=== PATIENT | female | born 1990 | race Caucasian/White ===

== ENCOUNTER → 2021-09-07 | Outpatient (CLI) | payer BC, SELFPAY ==
[2021-09-07 11:25] LABS: Amphetamine Urine VISTA NEGATIVE (<1000 ng/mL); Barbiturate Urine VISTA NEGATIVE (< 200 ng/mL); Benzodiazepine Urine VISTA NEGATIVE (< 200 ng/mL); Cocaine Urine VISTA NEGATIVE (< 300 ng/mL); Ecstacy Urine VISTA NEGATIVE (< 500 ng/mL); Methadone Urine VISTA NEGATIVE (< 300 ng/mL); PCP Urine VISTA NEGATIVE (< 25 ng/mL); THC Urine VISTA NEGATIVE (< 50 ng/mL); Vista UDS pH Range 5
[2021-09-09 00:07] LABS: Chlamydia By Nucleic Acid AMP Negative (Negative)
[2021-09-09 07:48] LABS: Gonococcus By Nucleic Acid AMP Negative (Negative)
[2021-09-14 10:28] LABS: HPV APTIMA, High Risk Negative (Negative)
[2021-09-14 10:29] LABS: HPV Reflexed? YES, CHARGE PATIENT
== END | disposition home or self-care (01) ==
LOC: LABSPEC 09-08 08:13
PROVIDERS: Visit Provider Obstetrics & Gynecology
DX: Z34.90 Encounter for supervision of normal pregnancy, unspecified, unspecified trimester (principal)
CPT/HCPCS: 80307; 87086; 87088; 87491; 87591; 87624; 88175; G0145

== ENCOUNTER → 2021-09-15 | Outpatient (CLI) | payer BC, SELFPAY ==
[2021-09-15 16:59] LABS: Absolute Lymphocyte Count 2.78 X10^3/uL (0.83-4.51); Basophil# 0.07 X10^3/uL; Basophil% 0.6 % (0-1); Eosinophil# 0.47 X10^3/uL; Eosinophils% 3.9 % (0-5); Hematocrit 38.3 % (37-47); Hemoglobin 13.3 g/dL (12.0-15.0); Lymphocyte # 2.78 X10^3/ul (0.83-4.51); Lymphocyte % 22.8 % (19-41); Mean Corp Hgb Conc 34.7 g/dL (32-36); Mean Corpuscular Hgb 31.4 pg (27.0-32.0); Mean Corpuscular Volume 90.3 fL (81-99); Mean Platelet Vol. 9.8 fl (6.2-12.0); Monocyte# 0.84 X10^3/uL; Monocyte% 6.9 % (0-10); NRBC Flagged by Analyzer 0 % (0-5); Neutrophil # 7.95 X10^3/uL (2.7-7.7); Neutrophil % 65.3 % (47-70); Platelet Count 243 K/mm3 (150-450); RBC Distribution Width CV 12.1 % (11.6-14.6); RBC Distribution Width SD 39.6 fl (35.1-43.9); Red Blood Count 4.24 M/mm3 (4.2-5.4); White Blood Count 12.2 K/mm3 (4.4-11.0)
[2021-09-15 17:36] LABS: NATERA MAILED SPECIMEN
[2021-09-16 08:39] LABS: HIV - WCH Non-Reactive (Nonreactive); Hepatitis B Surface Antigen Non-Reactive (Nonreactive); Hepatitis C Antibody Non-Reactive (Nonreactive); Rubella IgG Reactive (Nonreactive); Syphilis Antibodies Non-reactive
== END | disposition home or self-care (01) ==
LOC: LAB 16:29
PROVIDERS: Visit Provider Obstetrics & Gynecology
DX: Z34.90 Encounter for supervision of normal pregnancy, unspecified, unspecified trimester (principal)
CPT/HCPCS: 36415; 85025; 86703; 86762; 86780; 86803; 86850; 86900; 86901; 87340

== ENCOUNTER 2021-09-17 11:58 | Emergency (ER) | payer BC, SELFPAY ==
[2021-09-17 11:59] VITALS: BP 125/91; PULSE 105; RESP 18; TEMP 36.6; O2SAT 100; BMI 24.3
--- NOTE | 2021-09-17 12:21 | EDS_ITS ---
HPI HPI - Female History of Present Illness Chief Complaint: Vag Bld, Preg Informant: patient Pain Pain: Positive for Pelvic Pain Onset: Today Context: Sudden Onset Timing: Intermittent and Lasts (Approximately 30 minutes) Quality: Positive for Cramping Location: RLQ, LLQ and Suprapubic Worsened by: - (Nothing) Relieved by: - (Nothing) Bleeding Issue: Positive for Vaginal bleeding and Passing clots Onset: Today Context: Sudden Onset Current Severity: Mild Associated Symptoms Associated Symptoms: Positive for Hematuria; Negative for Dysuria or Frequency Test: Positive P: 0 Narrative Narrative: Patient presents with vaginal bleeding and pelvic pain that began today. Patient states she is approximately 11 weeks . Patient is 1 para 0. Patient states she was passing small clots and blood. Patient denies passing any tissue. Patient admits to some pelvic cramping. Patient states this lasted approximately 30 minutes and then resolved. Patient states it was over the lower abdomen. Patient states nothing makes it better nothing makes it worse. Patient denies any dysuria but admits to some slight hematuria. Patient denies any urinary frequency. Patient denies any vaginal discharge. [facility] Medical History (Updated 09/17/21 @ 14:[address] Jesus Dobbs DO) Anxiety Home Medications fluticasone propionate 50 mcg/actuation nasal spray,suspension 1 spray intranasal DAILY 08/31/21 [History Last Taken Unknown] loratadine 5 mg disintegrating tablet (Claritin RediTabs) 5 mg PO ONCE 08/31/21 [History Last Taken Unknown] venlafaxine 150 mg capsule,extended release 24 hr 150 mg PO DAILY 08/31/21 [ History Last Taken Unknown] vitamin #56-iron 35 mg and 5 mg-folic acid 1 mg-dha capsule 1 cap PO DAILY 09/07/21 [History Last Taken Unknown] cephalexin 500 mg capsule 500 mg PO Q6 #12 CAPSULES 09/17/21 [Rx Last Taken Unknown] Allergy/AdvReac Type Severity Reaction Status Date / Time No Known Allergies Allergy Unverified 08/31/21 15:08 Surgical History (Updated 09/17/21 @ 12:[address] 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 current occupational exposures/hazards: Yes (formaldehyde) pets and animals: Yes (not managing litter box) pets and animals: cat(s) leisure activities: exercise history of recent travel: No sexually active: Yes Smoking Status: Never smoker how long ago did patient quit smokin years second hand exposure: No alcohol intake: former details: socially rare substance use type: does not use well-balanced diet: daily or most days caffeine: No eating out: rarely or never during the past year weight has: remained stable what type of physical activity do you participate in: other details: crossfit frequency: 3-4 times per week duration: 45-60 minutes/day joey/yarsanism: None seatbelt use: always do you feel safe at home: Yes additional social history: BF Eric ROS ROS ED Constitutional Constitutional ED: Denies chills or fever(s) Eyes Eyes: Denies blurry vision or change in vision ENT ENT ED: Denies rhinorrhea or sore throat Cardiovascular Cardiovascular: Denies chest pain or palpitations Respiratory/Chest Respiratory/Chest: Denies cough or dyspnea Gastrointestinal Gastrointestinal: Reports abdominal pain; Denies nausea or vomiting Genitourinary Genitourinary ED: Reports hematuria; Denies dysuria Musculoskeletal Musculoskeletal: Denies back pain or neck pain Integumentary Denies abscess or rash Neurologic Neurologic: Denies headache(s) or weakness Allergic/Immunologic Allergic/Immunologic ED: Denies mouth swelling or urticaria EXAM Physical Exam Const Vital Signs: 09/17/21 11:59 Temperature 97.9 F Temperature Source Temporal Pulse Rate 105 H Respiratory Rate 18 Blood Pressure 125/91 H Blood Pressure Mean 102 Pulse Ox 100 Oxygen Delivery Method Room Air Positive well nourished and well developed General Appearance ED: well developed and NAD HEENT Reports moist mucous membranes Neck supple and no JVD Resp normal respiratory effort and clear to auscultation bilaterally Cardio regular rate and regular rhythm GI normal to inspection, nondistended, normoactive bowel sounds and soft to palpation Palpation: tender LLQ, RLQ and suprapubic; Negative for guarding Neuro oriented x3, CN's II-XII intact bilaterally and no sensory deficits noted Sensorium / Orientation: alert Motor Exam: strength 5/5 throughout Psych mental status grossly normal MDM MDM MDM Narrative Medical decision making narrative: Patient was given IV fluids. CBC was within normal limits. Quantitative hCG was [address]. Urinalysis shows a leukocyte esterases of 500 with 10-25 white blood cells and 10-25 epithelial cells and 1+ bacteria. Urine culture was ordered. Pelvic ultrasound was obtained. There is a single live intrauterine measuring 10 weeks 2 days. There is no fluid in the cul-de-sac. heart rate is 166. Patient was advised of her findings. Patient is feeling better on reevaluation. Case was discussed with Dr. Estrada. She did recommend covering the patient with Keflex for possible urinary tract infection until urine culture results return. Patient was given her first dose of Keflex here. Patient was instructed to follow-up with Dr. Estrada as scheduled. Patient and spouse understood and were agreeable with the plan. All questions were answered. Lab Data Attestation: I reviewed the patient's lab results. Labs: Laboratory Results - last 24 hr 09/17/21 09/17/21 09/17/21 12:35 12:35 12:35 WBC 9.6 RBC 4.21 Hgb 13.4 Hct 39.0 MCV 92.6 MCH 31.8 MCHC 34.4 RDW Std Deviation 41.4 RDW Coeff of Dora 12.1 Plt Count 221 MPV 9.8 Immature Gran % (Auto) 0.400 Neut % (Auto) 66.0 Lymph % (Auto) 23.4 [place] % (Auto) 7.2 Eos % (Auto) 2.6 Baso % (Auto) 0.4 Absolute Neuts (auto) 6.3 Absolute Lymphs (auto) 2.24 Nucleated RBC % 0 HCG, Quant 55128 H Urine Color Yellow Urine Clarity Cloudy Urine pH 5.0 Ur Specific [place] 1.030 Urine Protein Negative Urine Glucose (UA) NEGATIVE Urine Ketones Negative Urine Occult Blood 150 H Urine Nitrite Negative Urine Bilirubin Negative Urine Urobilinogen Normal Ur Leukocyte Esterase 500 H Urine RBC 5-10 SEEN Urine WBC 10-25 SEEN Ur Squamous Epith Cells 10-25 SEEN Urine Bacteria 1+ Urine Mucus 0 SEEN Radiography Diagnostic Testing: Clinical Impression(s) from Imaging Studies Obstetrics Ultrasound 09/17/21 12:26 IMPRESSION: Single live intrauterine , as above. Electronically Signed: Shalom Pimentel MD ([place]) at 14:16 EDT , Discharge Plan Triage Chief Complaint: Vag Bld, Preg ED Provider: Jesus Dobbs Dx/Rx/DC Orders Clinical Impression: Threatened miscarriage, Urinary tract infection Instructions: ED Possible Miscarriage ..., ED CYSTITIS Female Adult Prescriptions: New cephalexin [cephalexin] 500 mg capsule 500 mg PO Q6 Qty: 12 0RF No Action Claritin RediTabs 5 mg tablet,disintegrating 5 mg PO ONCE fluticasone propionate 50 mcg/actuation spray,suspension 1 spray intranasal DAILY Rx Instructions: administer into each nostril venlafaxine 150 mg capsule,extended release 24hr 150 mg PO DAILY PNV #[id number]-[id number] acid-dha 35 mg iron-5 mg iron-1 mg capsule 1 cap PO DAILY Primary Care Provider: Care Physician,No Primary Referrals: Yolis Gibson DO [Med Staff - Active Staff] - Keep [facility] appointment Care Physician,No Primary [Primary Care Provider] - Disposition Disposition: Home, Self Care
--- NOTE | 2021-09-17 12:26 | US_ITS ---
STUDY: FIRST TRIMESTER OBSTETRICAL ULTRASOUND REASON FOR EXAM: Female, 30 years old Pelvic pain, vaginal bleeding LMP: 07/01/2021 TECHNIQUE: Transabdominal and Transvaginal TECHNICAL QUALITY: Adequate. PRIOR ULTRASOUND: None. FINDINGS: There is visualization of a single gestational sac in a normal intrauterine position. The mean sac diameter (MSD) measures 4.5 cm, indicating an estimated gestational age (EGA) of 10 weeks, 0 days. The gestational sac shape is within normal limits. There is a visualized yolk sac. The yolk sac measures 4.7 mm. The placenta is non-visualized. There is visualization of a live embryo. The crown-rump length (CRL) measures 3.76 cm, indicating an estimated gestational age (EGA) of 10 weeks, 2 days. There is demonstrated cardiac activity with a heart rate of 166 bpm. The estimated gestation age (EGA) by LMP is 11 weeks, 1 days. The estimated date of delivery (MARY) by LMP is 04/07/2022. The estimated gestation age (EGA) by US is 10 weeks, 1 days. The estimated date of delivery (MARY) by US is 04/14/2022. The uterus measures 9.6 x 8.8 x 6.6 cm. There is no demonstrated uterine fibroid. The cervix is closed. The right ovary measures 3.8 x 1.5 x 2.0 cm. There is no right ovarian cyst. There is no visualized right adnexal mass or complex lesion. The left ovary measures 3.5 x 5.4 x 3.2 cm. 3.3 cm left corpus luteum cyst. There is no visualized left adnexal mass or complex lesion. There is no fluid in the cul de sac. US/Transvaginal w/Preg US IMPRESSION: Single live intrauterine , as above. Electronically Signed: Shalom Pimentel MD ([place]) at 14:16 EDT Reading Location ID and State: [facility] / [place] , Service support ,
[2021-09-17] MEDS: 0.9% Normal Saline 1,000 ML 1000 ML IV (12:34)
[2021-09-17 12:42] LABS: Mucous, Urine 0 SEEN /hpf (<or=2+)
[2021-09-17 12:48] LABS: Absolute Lymphocyte Count 2.24 X10^3/uL (0.83-4.51); Absolute Neutrophil Count 6.3 X10^3/uL (2.0-7.7); Basophil# 0.04 X10^3/uL; Basophil% 0.4 % (0-1); Eosinophil# 0.25 X10^3/uL; Eosinophils% 2.6 % (0-5); Hemoglobin 13.4 g/dL (12.0-15.0); Lymphocyte # 2.24 X10^3/ul (0.83-4.51); Lymphocyte % 23.4 % (19-41); Mean Corp Hgb Conc 34.4 g/dL (32-36); Mean Corpuscular Hgb 31.8 pg (27.0-32.0); Mean Corpuscular Volume 92.6 fL (81-99); Mean Platelet Vol. 9.8 fl (6.2-12.0); Monocyte# 0.69 X10^3/uL; Monocyte% 7.2 % (0-10); NRBC Flagged by Analyzer 0 % (0-5); Neutrophil # 6.31 X10^3/uL (2.7-7.7); Platelet Count 221 K/mm3 (150-450); RBC Distribution Width CV 12.1 % (11.6-14.6); RBC Distribution Width SD 41.4 fl (35.1-43.9); Red Blood Count 4.21 M/mm3 (4.2-5.4); White Blood Count 9.6 K/mm3 (4.4-11.0)
[2021-09-17 13:20] LABS: Color, Urine Yellow (Yellow); Urine Clarity Cloudy (Clear)
[2021-09-17 13:21] LABS: Bacteria 1+ /hpf (None Seen); Glucose, Dipstick NEGATIVE (Normal); Ketone-Dipstick Negative (Negative); Leukocyte Esterase-Dipstick 500 /ul (Negative); Nitrite-Dipstick Negative (Negative); Occult Blood-Urine 150 /ul (Negative); Protein-Dipstick Negative (Negative); Red Blood Cells-Urine 5-10 SEEN /hpf (0-5); Squamous Epithelial Cells - UA 10-25 SEEN /hpf (5-10); Urine Bilirubin Dipstick Negative (Negative); Urine Urobilinogen Normal (Normal); White Blood Cells 10-25 SEEN /hpf (0-5)
[2021-09-17] MEDS: Cephalexin 500 MG Capsule PO (14:54)
== END 2021-09-17 15:00 | disposition home or self-care (01) ==
PROVIDERS: Emergency Provider Emergency Medicine; Visit Provider Emergency Medicine
DX: O20.0 Threatened abortion (principal); O23.41 Unspecified infection of urinary tract in pregnancy, first trimester; O99.341 Other mental disorders complicating pregnancy, first trimester; F41.9 Anxiety disorder, unspecified; Z3A.10 10 weeks gestation of pregnancy; Z79.899 Other long term (current) drug therapy
CPT/HCPCS: 76817; 81001; 84702; 85025; 87077; 87086; 87088; 87186; 96360; 99284; J7030; A4216

== ENCOUNTER → 2021-12-29 | Outpatient (CLI) | payer BC, SELFPAY ==
[2021-12-29 09:30] LABS: Absolute Lymphocyte Count 2.28 X10^3/uL (0.83-4.51); Absolute Neutrophil Count 7.5 X10^3/uL (2.0-7.7); Basophil# 0.05 X10^3/uL; Basophil% 0.5 % (0-1); Eosinophil# 0.33 X10^3/uL; Hemoglobin 12.4 g/dL (12.0-15.0); Lymphocyte # 2.28 X10^3/ul (0.83-4.51); Lymphocyte % 20.6 % (19-41); Mean Corp Hgb Conc 34.4 g/dL (32-36); Mean Corpuscular Hgb 31.9 pg (27.0-32.0); Mean Corpuscular Volume 92.5 fL (81-99); Mean Platelet Vol. 10.7 fl (6.2-12.0); Monocyte# 0.86 X10^3/uL; Monocyte% 7.8 % (0-10); NRBC Flagged by Analyzer 0 % (0-5); Neutrophil # 7.51 X10^3/uL (2.7-7.7); Neutrophil % 67.6 % (47-70); Platelet Count 248 K/mm3 (150-450); RBC Distribution Width CV 12.2 % (11.6-14.6); RBC Distribution Width SD 41.4 fl (35.1-43.9); Red Blood Count 3.89 M/mm3 (4.2-5.4); White Blood Count 11.1 K/mm3 (4.4-11.0)
[2021-12-29 10:09] LABS: Glucose Challenge Gest 1H 50g 61 mg/dL (70-140)
== END | disposition home or self-care (01) ==
LOC: LAB 09:09
PROVIDERS: Visit Provider Obstetrics & Gynecology
DX: O09.90 Supervision of high risk pregnancy, unspecified, unspecified trimester (principal); Z3A.00 Weeks of gestation of pregnancy not specified
CPT/HCPCS: 36415; 82950; 85025

== ENCOUNTER → 2022-03-09 | Outpatient (CLI) | payer BC, SELFPAY ==
--- NOTE | 2022-03-09 15:34 | US_ITS ---
EXAM: US , LIMITED CLINICAL INDICATION: growth TECHNIQUE: Real-time limited ultrasound of the maternal uterus with image documentation. This report was created using [employer] report generation technology. COMPARISON: None. FINDINGS: GESTATIONAL AGE: Gestational age 35 weeks 6 days. MARY: MARY 04/07/2022. EFW: Estimated weight 2662 g, 37th percentile. BPD: Biparietal diameter 9.2 cm age 37 weeks 1 day, 27th percentile. HC: Head circumference 34.2 cm age 39 weeks 3 days, 94th percentile. AC: Abdominal circumference 31.6 cm age 35 weeks 4 days, 51st percentile. FL: Femur length 6.5 cm age 33 weeks 4 days, 4th percentile. POSITION: There is an intrauterine gestation in cephalic position. HEART RATE: heart rate is 169 bpm. PLACENTA: The placenta is anterior. There is a small 5 mm calcification in the placenta. AMNIOTIC FLUID: KAREY is 12.9 cm. CERVIX: Cervix measures 3.6 cm in length. US/OB Limited With Biometrics IMPRESSION: Intrauterine gestation with an average ultrasound age of 36 weeks 2 days and ultrasound estimated due date of 04/04/2022. heart rate is 169 bpm. KAREY is 12.9 cm. Electronically Signed: Angelo Beckwith MD at 16:35 EST ,
== END | disposition home or self-care (01) ==
PROVIDERS: Referring Provider Obstetrics & Gynecology; Visit Provider Obstetrics & Gynecology
DX: O98.519 Other viral diseases complicating pregnancy, unspecified trimester (principal); U07.1 COVID-19; Z3A.36 36 weeks gestation of pregnancy
CPT/HCPCS: 76816

== ENCOUNTER 2022-03-16 18:55 | Inpatient (IN) | payer BC, SELFPAY ==
[2022-03-16] VITALS (14 sets, daily range): BP systolic 140–161; BP diastolic 86–95; PULSE 57–71; TEMP 36.6–36.7; O2SAT 99; BMI 30.2
[2022-03-16 12:34] LABS: Protein, Urine (Random) 237.5 mg/dL (<11.9); Protein:Creat Ratio 794 mg/g CRE (0-200)
[2022-03-16 18:07] LABS: Mucous, Urine 0 SEEN /hpf (<or=2+); Red Blood Cells-Urine 0 SEEN /hpf (0-5)
[2022-03-16 18:19] LABS: Hemoglobin 12.2 g/dL (12.0-15.0); Mean Corp Hgb Conc 34.9 g/dL (32-36); Mean Corpuscular Hgb 31.6 pg (27.0-32.0); Mean Corpuscular Volume 90.7 fL (81-99); Mean Platelet Vol. 13.1 fl (6.2-12.0); Platelet Count 205 K/mm3 (150-450); RBC Distribution Width CV 12.6 % (11.6-14.6); Red Blood Count 3.86 M/mm3 (4.2-5.4); White Blood Count 9.5 K/mm3 (4.4-11.0)
[2022-03-16 18:33] LABS: Color, Urine Yellow (Yellow); Glucose, Dipstick Normal (Normal); Ketone-Dipstick Negative (Negative); Urine Bilirubin Dipstick Negative (Negative); Urine Clarity Clear (Clear)
[2022-03-16 18:34] LABS: Bacteria 1+ /hpf (None Seen); Leukocyte Esterase-Dipstick 500 /ul (Negative); Nitrite-Dipstick Negative (Negative); Occult Blood-Urine 25 /ul (Negative); Protein-Dipstick 100 mg/dl (Negative); Squamous Epithelial Cells - UA 0-5 SEEN /hpf (5-10); Urine Urobilinogen Normal (Normal); White Blood Cells 10-25 SEEN /hpf (0-5)
[2022-03-16 18:38] LABS: AST(SGOT) 20 U/L (15-37); Alanine Aminotransfer ALT/SGPT 15 U/L (13-56); EST Glomerular Filtration Rate 78 mL/min (>60); Est Glom Filt Rate - Afr Amer 95 mL/min (>60); Estimated Creatinine Clearance 108.79 ml/min; Uric Acid 6.9 mg/dL (2.6-6.0)
[2022-03-16 18:44] LABS: Protein, Urine (Random) 242.5 mg/dL (<11.9); Protein:Creat Ratio 1575 mg/g CRE (0-200)
[2022-03-16] MEDS: Betamethasone/Betamethasone 30 MG/5 ML Vial 12 MG IM (20:28)
[2022-03-16] MEDS: Lactated Ringers 1,000 ML 50 ML IV (20:30)
[2022-03-16] MEDS: Oxytocin 15 Units/NS 250ml 15 UNITS/250 ML IV.SOLN 2 UNITS IV (21:49)
[2022-03-16] MEDS: Famotidine 20 MG Tablet PO (23:38)
[2022-03-17] VITALS (53 sets, daily range): BP systolic 100–172; BP diastolic 53–117; PULSE 56–144; RESP 16–17; TEMP 35.9–37; O2SAT 96–100
[2022-03-17] MEDS: LACTATED RINGERS 500 ML 999 ML IV ×2 (02:17→03:15)
--- NOTE | 2022-03-17 02:42 | HP.PCM.OB_ITS ---
HPI - General General Date of Admission: 03/16/22 HPI Narrative EVERETT WOODARD, is a 31 F who presents with elevated bps and proteinuria, irregular ctx. she was closed in the office and is now 3 cm so she is also having contractions. Maternal Data Information MARY Calculator Estimated Delivery Date Method Current WG Current Estimate 04/07/22 Ultrasound #1 37w 0d Other Estimates 04/13/22 LMP (Certain) 36w 1d PFSH PFS Medical History Anxiety Home Medications fluticasone propionate 50 mcg/actuation nasal spray,suspension 1 spray intranasal DAILY allergies 08/31/21 [History Last Taken 03/14/22 20:00 2 in each nostril] vitamin #56-iron 35 mg and 5 mg-folic acid 1 mg-dha capsule 1 cap PO DAILY 09/07/21 [History Last Taken 03/15/22 20:00 1 tab] sertraline 25 mg tablet (Zoloft) 25 mg PO DAILY anxiety 12/02/21 [History Last Taken 03/15/22 20:00 25 mg] loratadine 10 mg tablet (Claritin) 10 mg PO DAILY allergies 01/19/22 [History Last Taken 03/15/22 20:00 10 mg] famotidine 20 mg tablet (Pepcid) 20 mg PO DAILY acid reflux 03/16/22 [History Last Taken 03/16/22 16:00 20 mg] Allergy/AdvReac Type Severity Reaction Status Date / Time No Known Allergies Allergy Verified 03/16/22 11:22 Surgical History Hx of sinus surgery Social History adopted: No household members: significant other housing: house number of children: 0 current occupational status: employed 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 current occupational exposures/hazards: Yes (formaldehyde) pets and animals: Yes (not managing litter box) pets and animals: cat(s) leisure activities: exercise history of recent travel: No sexually active: Yes Smoking Status: Former smoker quit date: 10/22/13 how long ago did patient quit smokin years second hand exposure: No alcohol intake: former details: socially rare substance use type: does not use well-balanced diet: daily or most days caffeine: No eating out: rarely or never during the past year weight has: remained stable what type of physical activity do you participate in: other details: crossfit frequency: 3-4 times per week duration: 45-60 minutes/day joey/rastafari: None seatbelt use: always do you feel safe at home: Yes additional social history: BF Eric History 1 Elective abortions Hx Para 0 Spontaneous abortions Hx # Term Pregnancies Ectopic pregnancies Hx # Pregnancies Multiple births # of living children Visit Details Expected Delivery Route/Plan Labor Preferences- CB/BF classes: declined labor support person: [] labor intervention preferences: [] pain management options preferred: [] cut cord/dad catch: [] : [] PP control planned: [] discussed possible routes of delivery and associated risks: [] special requests: [] Plans Covid status: discussed Flu vaccine: discussed Tdap vaccine: given Rhogam: na LARC form signed: declined movement and labor precautions reviewed. Problem list reviewed and updated with the most current plan of care details and appropriate orders placed. Relevant counseling for the gestational age provided. Continue routine care and follow up unless otherwise noted in visit notes/problem list details OB Flowsheet Initial Weight: Not Recorded Date -?-?-?-?-?-?-?-?-?-?-?-?- EGA Weight BP Urine Prot -?-?-?-?-?-?-?-?-?-?-?-?- Glucose FHR FuHt Pres Dilation -?-?-?-?-?-?-?-?-?-?-?-?- Effaced St Visit Note 09/07/21 -?-?-?-?-?-?-?-?-?-?-?-?- 9w 5d 187 lb 120/80 -?-?-?-?-?-?-?-?-?-?-?-?- 189 -?-?-?-?-?-?-?-?-?-?-?-?- JV-CRL off by 6 days. MARY changed 10/06/21 -?-?-?-?-?-?-?-?-?-?-?-?- 13w 6d 189 lb 124/82 Negative -?-?-?-?-?-?-?-?-?-?-?-?- Negative 150 -?-?-?-?-?-?-?-?-?-?-?-?- SM- no vb crampi gn discussed effexor medication and discussed weaning and trying an SSRI if desired, hasn't been on an SSRI in the past 11/03/21 -?-?-?-?-?-?-?-?-?-?-?-?- 17w 6d 195 lb 4 oz 118/81 Nega tive -?-?-?-?-?-?-?-?-?-?-?-?- Negative 147 -?-?-?-?-?-?-?-?-?-?-?-?- JV- no lof, vagi nal bleeding, or cramping. rx for reglan and phenergan for traveling to [place]. Plan to take a baby asa on flight. anatomy scan ordered. see cheyanne results. 12/02/21 -?-?-?-?-?-?-?-?-?-?-?-?- 22w 0d 199 lb 135/81 Negative -?-?-?-?-?-?-?-?-?-?-?-?- Negative 145 22 -?-?-?-?-?-?-?-?-?-?-?-?- SM- reviewed US, no vb crmaping declined afp 12/29/21 -?-?-?-?-?-?-?-?-?-?-?-?- 25w 6d 207 lb 122/78 Negative -?-?-?-?-?-?-?-?-?-?-?-?- Negative 164 26 -?-?-?-?-?-?-?-?-?-?-?-?- JV- 3rd trimeste r labs today, flu shot today. no complaints. 01/19/22 -?-?-?-?-?-?-?-?-?-?-?-?- 28w 6d 215 lb 121/81 Negative -?-?-?-?-?-?-?-?-?-?-?-?- Negative 150 29 -?-?-?-?-?-?-?-?-?-?-?-?- SM- no vb lof go od fm no regular ctx tdap given 02/02/22 -?-?-?-?-?-?-?-?-?-?-?-?- 30w 6d 216 lb 4 oz 121/82 Nega tive -?-?-?-?-?-?-?-?-?-?-?-?- Negative 135 30 -?-?-?-?-?-?-?-?-?-?-?-?- JV- no lof, vagi nal bleeding, or dec fm. no concerns today. rto 2 wks 02/16/22 -?-?-?-?-?-?-?-?-?-?-?-?- 32w 6d 222 lb 6 oz 121/87 Nega tive -?-?-?-?-?-?-?-?-?-?-?-?- Negative 135 33 -?-?-?-?-?-?-?-?-?-?-?-?- SM- no vb lof go od fm no reuglar ctx larc signed 03/02/22 -?-?-?-?-?-?-?-?-?-?-?-?- 34w 6d 223 lb 4 oz 131/85 Nega tive -?-?-?-?-?-?-?-?-?-?-?-?- Negative 140 33 -?-?-?-?-?-?-?-?-?-?-?-?- JV- no lof, vagi nal bleeding, or dec fm. gbs next visit. 03/16/22 -?-?-?-?-?-?-?-?-?-?-?-?- 36w 6d 229 lb 139/88 2+ -?-?-?-?-?-?-?-?-?-?-?-?- Negative 140 35 Cephalic 0 -?-?-?-?-?-?-?-?-?-?-?-?- JV- ultrasound r thowed and shows fl is 4th%. however. will call radiology to confirm. gbs collected. 03/16/22 -?-?-?-?-?-?-?-?-?-?-?-?- 36w 6d 229 lb 0.964 oz 159/ 91 146/92 141/87 151/92 143/87 161/93 151/95 140/90 145/89 144/95 145/86 153/90 151/89 143/89 100 mg/dl (Negative) H -?-?-?-?-?-?-?-?-?-?-?-?- -?-?-?-?-?-?-?-?-?-?-?-?- NST FHR Rate Baby A Baseline: 130 Variability:: Moderate Accelerations:: 15 x 15 Decelerations:: None NST Reactive:: Yes FHR Category:: Category I Uterine Activity:: irregular ROS Constitutional Constitutional: Reports systems reviewed and no addt'l complaints, except as documented Eyes Eyes: Denies change in vision ENT HEENT: Reports systems reviewed and no addt'l complaints, except as documented; Denies headache(s) Cardiovascular Cardiovascular: Reports systems reviewed and no addt'l complaints, except as documented; Denies chest pain or dyspnea Respiratory/Chest Respiratory/Chest: Reports systems reviewed and no addt'l complaints, except as documented Gastrointestinal Gastrointestinal: Reports systems reviewed and no addt'l complaints, except as documented; Denies abdominal pain Genitourinary Genitourinary: Reports systems reviewed and no addt'l complaints, except as documented, contractions Details: present (irregular) and movement Details: present; Denies dysuria or genital lesions Musculoskeletal Musculoskeletal: Reports systems reviewed and no addt'l complaints, except as documented Neurologic Neurologic: Reports systems reviewed and no addt'l complaints, except as do cumented Endocrine Endocrinology: Reports systems reviewed and no addt'l complaints, except as documented Vital Signs Vital Signs Vital Signs: 03/16/22 18:03 03/16/22 18:03 03/16/22 18:05 Temperature Pulse Rate 64 67 Blood Pressure 159/91 H BP Systolic 159 BP Diastolic 91 Pulse Ox 03/16/22 18:05 03/16/22 18:18 03/16/22 18:18 Temperature Pulse Rate 60 Blood Pressure 146/92 H BP Systolic 146 BP Diastolic 92 Pulse Ox 99 03/16/22 18:33 03/16/22 18:33 03/16/22 18:48 Temperature Pulse Rate 57 L Blood Pressure 141/87 H 151/92 H BP Systolic 141 151 BP Diastolic 87 92 Pulse Ox 03/16/22 18:48 03/16/22 19:03 03/16/22 19:03 Temperature Pulse Rate 62 60 Blood Pressure 143/87 H BP Systolic 143 BP Diastolic 87 Pulse Ox 03/16/22 19:18 03/16/22 19:18 03/16/22 19:33 Temperature Pulse Rate 62 Blood Pressure 161/93 H 151/95 H BP Systolic 161 151 BP Diastolic 93 95 Pulse Ox 03/16/22 19:33 03/16/22 20:31 03/16/22 20:31 Temperature Pulse Rate 58 L 62 Blood Pressure 140/90 H BP Systolic 140 BP Diastolic 90 Pulse Ox 03/16/22 21:08 03/16/22 22:08 03/16/22 22:08 Temperature 97.9 F Pulse Rate 63 Blood Pressure 145/89 H BP Systolic 145 BP Diastolic 89 Pulse Ox 03/16/22 22:33 03/16/22 22:33 03/16/22 23:06 Temperature 98.1 F Pulse Rate 65 Blood Pressure 144/95 H BP Systolic 144 BP Diastolic 95 Pulse Ox 03/16/22 23:32 03/16/22 23:32 03/17/22 00:28 Temperature Pulse Rate 71 59 L Blood Pressure 145/86 H BP Systolic 145 BP Diastolic 86 Pulse Ox 03/17/22 00:28 03/17/22 00:33 03/17/22 00:33 Temperature Pulse Rate 59 L Blood Pressure 153/90 H BP Systolic 153 BP Diastolic 90 Pulse Ox 97 03/17/22 01:13 03/17/22 01:33 03/17/22 01:33 Temperature 97.2 F L Pulse Rate 57 L Blood Pressure 151/89 H BP Systolic 151 BP Diastolic 89 Pulse Ox 03/17/22 02:30 03/17/22 02:30 03/17/22 02:35 Temperature Pulse Rate 66 63 Blood Pressure BP Systolic BP Diastolic Pulse Ox 99 03/17/22 02:35 03/17/22 02:40 03/17/22 02:40 Temperature Pulse Rate 60 Blood Pressure BP Systolic BP Diastolic Pulse Ox 100 100 Weight Weight: 229 lb 0.964 oz Body Mass Index (BMI) 30.2 Physical Exam Const alert, oriented x3, no apparent distress and healthy appearing HEENT normocephalic and moist oral mucous membranes Head and Scalp: atraumatic Neck full ROM, no lymphadenopathy, supple and thyroid normal General: trachea midline Lymph Lymphatic: no lymphadenopathy noted Chest inspection of chest normal Resp normal respiratory effort Cardio regular rate GI normal to inspection, nondistended, normoactive bowel sounds, soft to palpation and non-tender Inspection: gravid external exam normal Manual OB Exam: estimated gestational size appropriate, presentation cephalic, dilated, effaced and station Extremity normal to inspection General Extremity: Negative for edema Skin no rashes or lesions noted Neuro no focal motor deficits and deep tendon reflexes 2+ bilaterally Motor Exam: strength 5/5 throughout and clonus absent Psych mental status grossly normal Labs Labs Labs: Blood Type B POSITIVE Antibody Screen NEGATIVE Hct 35.0 % (37-47) L Hgb 12.2 g/dL (12.0-15.0) Obstetrics US Syphilis Total Ab Non-reactive Rubella IgG Antibody Reactive (Nonreactive) Hep Bs Antigen Non-Reactive (Nonreactive) Chlamydia DNA (LUCIAN) Negative (Negative) Neisseria gonorrhoeae DNA (LUCIAN) Negative (Negative) HIV 1&2 Antibody Non-Reactive (Nonreactive) Glucose 1 Hr 50 gm 61 mg/dL (70-140) L Assessment & Plan (1) Mild to moderate pre-eclampsia complicating puerperium: COMMENT: plan IOL (2) COVID-19 affecting , antepartum: COMMENT: 81 mg ASA. 32 and 36 week growth US, 03/09 nl growth, EFW 2662 in 37th%. 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 (4) Depression: COMMENT: effexor, counseling encouraged. 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 on bromocriptine in the past. monitored by Endo- Dr Gutierrez. (7) Supervision of high risk , antepartum: COMMENT: PRR , EDD04/13/22, girl Umm BF Eric (8) : QUALIFIERS: Weeks of gestation: 36 weeks Qualified Code(s): Z3A.36 - 36 weeks gestation of COMMENT: anatomy nl, NIPT low risk, gender female. 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 Pain management: plans epidural. GBS pos- give PCN. Management of any complications: [none] I have reviewed the [facility] and made any clinically relevant updates.
[2022-03-17] MEDS: Penicillin G 3,000,000 Units 50 ML 100 UNITS IV (02:55)
[2022-03-17] MEDS: fentaNYL-bupivacaine (epidural) 100 ML BAG EPIDURAL (03:00)
[2022-03-17] MEDS: Amnioinfusion- 0.9% NS 1,000 ML IV.SOLN. 1000 ML INTRA-UTER (03:34)
[2022-03-17] MEDS: Terbutaline 1 MG/ML Vial 0.25 MG SC (03:43)
[2022-03-17] MEDS: Carboprost Tromethamine 250 MCG/ML Ampul IM (05:07)
--- NOTE | 2022-03-17 05:29 | EX.PCM.OBRPT ---
Assessment & Plan (1) GBS (group B streptococcus) UTI complicating : COMMENT: 09/17/22 in ER, plan pcn in labor (2) Encounter for induction of labor: (3) Mild to moderate pre-eclampsia complicating puerperium: COMMENT: plan IOL (4) COVID-19 affecting , antepartum: COMMENT: 81 mg ASA. 32 and 36 week growth US, 03/09 nl growth, EFW 2662 in 37th%. 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 (6) Depression: COMMENT: effexor, counseling encouraged. 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 on bromocriptine in the past. monitored by Endo- Dr Gutierrez. (9) Supervision of high risk , antepartum: COMMENT: PRR , EDD04/13/22, girl Umm BF Eric (10) : QUALIFIERS: Weeks of gestation: 36 weeks Qualified Code(s): Z3A.36 - 36 weeks gestation of COMMENT: anatomy nl, NIPT low risk, gender female. 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 01/30 Maternal Data Information MARY Calculator Estimated Delivery Date Method Current WG Current Estimate 04/07/22 Ultrasound #1 37w 0d Other Estimates 04/13/22 LMP (Certain) 36w 1d Vaginal Delivery Operative Information Date of Procedure: 03/17/22 Pre-Operative Diagnosis: iol preeclampsia and recurrent decels Post-Operative Diagnosis: same Surgery / Procedure Performed: Vacuum Assisted Vaginal Delivery Type of Anesthesia: Epidural Special Medications: none Estimated Blood Loss: 400 Fluids Replaced: crystalloid Findings Description of Procedure: Patient began pushing and developed recurrent severe variables, therefore patient was consented for vacuum delivery, vacuum was applied at +3 station infant was JANEE and 3 pulls with 2 contractions with 1 pop-off and she delivered the head in the JANEE presentation. The head was delivered atraumatically. The anterior and posterior shoulders delivered without complication followed by the rest of the infant and the infant was placed on the maternal abdomen. Delayed cord clamping was employed for approximately 60 seconds. Cord was clamped and cut and gentle traction was applied to the cord and the placenta delivered spontaneously immediately following it was noted to be intact with three-vessel cord. The perineum and vagina were inspected and noted to have a first-degree perineal laceration that was repaired in the usual fashion with 3-0 Vicryl Rapide. EBL was 400 cc mild atony was encountered and treated with Hemabate and Pitocin and massage. Patient and infant tolerated delivery well. Presentation: JANEE Amniotic Membrane Rupture Type: Artificial Amniotic Fluid Description: Clear Placental Delivery Description: Spontaneous Placenta Disposition: [facility] Cord Vessel Description: 3 Vessels Cord Entanglement: None Delayed Cord Clamping: Yes Post Vaginal Delivery Medications Given After Delivery: IV Pitocin and IM Hemabate Episiotomy Description: None Laceration: Perineal Extension/lac and 1st degree Complication Complications: None Procedures Urinary/Genital [id number]: [id number] Vaginal Delivery [facility]
--- NOTE | 2022-03-17 05:34 | DCINST_ITS ---
Discharge Instructions Diet Discharge Diet: No restrictions Activity Discharge Activity: Return to Normal Activity, May Drive, May Shower and May Take a Tub Bath (in 4 weeks) May resume sexual activity in: 6-8 weeks (after seen by OB provider) Weight Bearing Status: Full weight bearing Lifting Restrictions: none Dressing / Incision Call your doctor if you observe: Fever of 101 or Higher, Inability to urinate, Using more than 1 pad per hour (for more than 2 hours in a row or more), Shortness of breath, Dizziness, Chest pain and - (headache not controlled with tylenol, change in vision) Follow Up Care When: in 6 weeks for visit, call the office to make the appointment. If you had elevated blood pressures call the office to be seen within 1 week. Test Results: Test results from this visit will be discussed in further detail at your follow- up appointment, if applicable. Discharge Plan Admission Admit Date/Time: 03/16/22 18:55 Attending Provider: Nikki Monroy Primary Care Provider: Care Physician,No Primary Consulting Providers: Yolis Gibson Discharge Orders/Prescriptions Prescriptions: Continued fluticasone propionate 50 mcg/actuation spray,suspension 1 spray intranasal DAILY Rx Instructions: administer into each nostril PNV #[id number] acid-dha 35 mg iron-5 mg iron-1 mg capsule 1 cap PO DAILY sertraline [Zoloft] 25 mg tablet 25 mg PO DAILY loratadine [Claritin] 10 mg tablet 10 mg PO DAILY famotidine [Pepcid] 20 mg tablet 20 mg PO DAILY Referrals / Follow Up: Care Physician,No Primary [Primary Care Provider] - Disposition Disposition (needs filled in before D/C Order can be placed): Home, Self Care
[2022-03-17] MEDS: Acetaminophen 500 MG Tablet 1000 MG PO (08:44)
[2022-03-17] MEDS: Naproxen 500 MG Tablet PO (11:26)
[2022-03-17] MEDS: Sertraline 50 MG Tablet 25 MG PO (22:02)
[2022-03-17] MEDS: Famotidine 20 MG Tablet PO (22:02)
[2022-03-18 05:00] VITALS: BP 130/76; PULSE 55; RESP 17; TEMP 36.8
[2022-03-18 09:15] VITALS: BP 126/80; PULSE 65; RESP 14; TEMP 37.1; O2SAT 97
--- NOTE | 2022-03-18 09:24 | PCM.PN.OB ---
Subjective Subjective No overnight complaints. Denies headache, vision change, chest pain, shortness of breath, nausea vomit, right upper quadrant pain. Objective Data Objective Data Vital Signs: Vital Signs Temp Pulse Resp BP Pulse Ox O2 Del Method 98.2 F 55 L 17 130/76 H 98 Room Air 03/18/22 05:00 03/18/22 05:00 03/18/22 05:00 03/18/22 05:00 03/17/22 08:52 03/17/22 08:52 Oxygen Delivery Method Room Air Weight: 229 lb 0.964 oz Body Mass Index (BMI) 30.2 Intake & Output: Intake and Output for Last 24 Hours 03/16/22 03/17/22 03/18/22 23:59 23:59 23:59 Intake Total 112.94 / 112.94 1792.06 / 1792.06 Output Total 100 / 100 2450 / 2450 Balance 12.94 / 12.94 -657.94 / -657.94 Lab / Micro Data Result Diagrams: 03/16/22 17:55 03/16/22 17:55 Micro: Microbiology 03/16/22 13:45 Genital vaginal Group B Streptococcus Culture - Preliminary 03/16/22 12:15 Urine, Midstream Urine Culture - Final Mixed Gram Positive Organisms Physical Exam Const alert, oriented x3, no apparent distress, average body habitus, healthy appearing and well nourished HEENT normocephalic and moist oral mucous membranes Eyes PERRL Neck full ROM Resp normal respiratory effort, no retractions and no use of accessory muscles GI GI Narrative: Soft, nontender, uterus firm and below umbilicus Extremity normal to inspection and full ROM Neuro moves all extremities, no focal motor deficits and deep tendon reflexes 2+ bilaterally Motor Exam: clonus absent Psych mental status grossly normal, affect normal, speech normal and activity/motor behavior normal Assessment & Plan (1) Vaginal delivery: PLAN: day 1 status post vacuum-assisted vaginal delivery for nonreassuring heart tones. Breast-feeding. Pain well controlled. Preeclampsia without severe features, asymptomatic. Blood pressures well controlled on no medication. Okay to discharge home for blood pressure check in 1 week
[2022-03-18 13:52] VITALS: BP 126/77; PULSE 65; RESP 15; TEMP 37.1; O2SAT 96
== END 2022-03-18 14:05 | disposition home or self-care (01) | DRG 805 ==
LOC: WPOUT 19:05 → WP 03-17 05:35
PROVIDERS: Obstetrics & Gynecology; Admitting Provider Obstetrics & Gynecology; Visit Provider Obstetrics & Gynecology
DX: O76 Abnormality in fetal heart rate and rhythm complicating labor and delivery (principal); Z37.0 Single live birth; O60.14X0 Preterm labor third trimester with preterm delivery third trimester, not applicable or unspecified; E71.311 Medium chain acyl CoA dehydrogenase deficiency; O99.344 Other mental disorders complicating childbirth; D35.2 Benign neoplasm of pituitary gland; F41.9 Anxiety disorder, unspecified; O75.89 Other specified complications of labor and delivery; O99.893 Other specified diseases and conditions complicating puerperium; F32.A Depression, unspecified; O70.0 First degree perineal laceration during delivery; O14.04 Mild to moderate pre-eclampsia, complicating childbirth; O99.824 Streptococcus B carrier state complicating childbirth; Z3A.36 36 weeks gestation of pregnancy; Z79.899 Other long term (current) drug therapy; Z86.16 Personal history of COVID-19; Z87.891 Personal history of nicotine dependence
CPT/HCPCS: 59025; 59050; 81001; 82565; 82570; 84156; 84450; 84460; 84550; 85027; 86850; 86900; 86901; 87081; 87086; 87088; 99221; J7030; J7120; G0378; J0702

== ENCOUNTER → 2022-04-10 | Outpatient (CLI) | payer BC, SELFPAY ==
[2022-04-10 10:14] LABS: Hematocrit 38.3 % (37-47); Hemoglobin 12.5 g/dL (12.0-15.0); Mean Corp Hgb Conc 32.6 g/dL (32-36); Mean Corpuscular Hgb 30.9 pg (27.0-32.0); Mean Corpuscular Volume 94.8 fL (81-99); Mean Platelet Vol. 11.2 fl (6.2-12.0); Platelet Count 241 K/mm3 (150-450); RBC Distribution Width CV 12.4 % (11.6-14.6); RBC Distribution Width SD 43.3 fl (35.1-43.9); Red Blood Count 4.04 M/mm3 (4.2-5.4); White Blood Count 5.9 K/mm3 (4.4-11.0)
[2022-04-10 10:57] LABS: ALB/GLOB Ratio 0.9 RATIO (0.9-2.4); AST(SGOT) 21 U/L (15-37); Alanine Aminotransfer ALT/SGPT 27 U/L (13-56); Albumin, Serum 3.2 g/dL (3.2-5.0); Alkaline Phosphatase 101 U/L (45-117); Anion Gap 8 (5-15); BUN 10 mg/dL (7-18); BUN/Creat Ratio 11.5 RATIO (10-20); Calcium,Total 8.9 mg/dL (8.5-10.1); Chloride 108 mmol/L (98-107); Creatinine, Serum 0.87 mg/dL (0.55-1.02); EST Glomerular Filtration Rate 81 mL/min (>60); Est Glom Filt Rate - Afr Amer 98 mL/min (>60); Globulin 3.6 g/dL (2.2-4.2); Glucose 88 mg/dL (74-106); Luteinizing Hormone 2.7 mIU/mL; Prolactin 99.1 ng/mL; Protein, Total 6.8 g/dL (6.4-8.2); Sodium Level 142 mmol/L (136-145); T4 Free Direct 0.86 ng/dL (0.76-1.46); Thyroid Stim Hormone (TSH) 1.87 uIU/mL (0.358-3.74)
[2022-04-12 20:31] LABS: Adrenocorticotropic Hormone 35.4 pg/mL (7.2-63.3); Insulin Like Growth Factor 150 ng/mL (91-308)
== END | disposition home or self-care (01) ==
LOC: LAB 08:34
DX: D35.2 Benign neoplasm of pituitary gland (principal)
CPT/HCPCS: 36415; 80053; 82024; 82533; 83002; 84146; 84305; 84439; 84443; 85027

== ENCOUNTER → 2023-01-26 | Outpatient (CLI) | payer BC, SELFPAY ==
[2023-01-26 13:10] LABS: Absolute Lymphocyte Count 2.72 X10^3/uL (0.83-4.51); Absolute Neutrophil Count 3.7 X10^3/uL (2.0-7.7); Basophil# 0.07 X10^3/uL; Basophil% 0.9 % (0-1); Eosinophil# 0.42 X10^3/uL; Eosinophils% 5.6 % (0-5); Hematocrit 42.8 % (37-47); Hemoglobin 14.5 g/dL (12.0-15.0); Lymphocyte # 2.72 X10^3/ul (0.83-4.51); Lymphocyte % 36.1 % (19-41); Mean Corp Hgb Conc 33.9 g/dL (32-36); Mean Corpuscular Hgb 31.5 pg (27.0-32.0); Mean Corpuscular Volume 92.8 fL (81-99); Mean Platelet Vol. 10.4 fl (6.2-12.0); Monocyte# 0.58 X10^3/uL; Monocyte% 7.7 % (0-10); NRBC Flagged by Analyzer 0 % (0-5); Neutrophil # 3.71 X10^3/uL (2.7-7.7); Neutrophil % 49.3 % (47-70); Platelet Count 270 K/mm3 (150-450); RBC Distribution Width CV 12.3 % (11.6-14.6); RBC Distribution Width SD 41.8 fl (35.1-43.9); Red Blood Count 4.61 M/mm3 (4.2-5.4); White Blood Count 7.5 K/mm3 (4.4-11.0)
[2023-01-26 20:13] LABS: Prolactin 44.8 ng/mL; Thyroid Stim Hormone (TSH) 2.51 uIU/mL (0.358-3.74)
== END | disposition home or self-care (01) ==
LOC: LAB 11:56
PROVIDERS: Referring Provider Obstetrics & Gynecology; Visit Provider Obstetrics & Gynecology
DX: N93.9 Abnormal uterine and vaginal bleeding, unspecified (principal); Z13.29 Encounter for screening for other suspected endocrine disorder
CPT/HCPCS: 36415; 84146; 84443; 85025

== ENCOUNTER → 2023-02-01 | Outpatient (CLI) | payer BC, SELFPAY ==
--- NOTE | 2023-02-01 14:08 | US_ITS ---
INDICATION: aub EXAMINATION: Ultrasound US Pelvis Non OB Complete With Transvaginal Imaging TECHNIQUE: Transabdominal and transvaginal pelvic ultrasound was performed. Grayscale, spectral waveform, and color flow Doppler evaluation of the adnexa. COMPARISON: OB ultrasound March 09, 2022 FINDINGS: The uterus measures 8.2 x 6.5 x 4.2 cm. Endometrial thickness is within normal limits at 7 mm. Few nabothian cysts are identified. 1.4 cm dominant follicle in the right ovary. Multiple small follicles throughout the ovaries bilaterally. Flow to the ovaries bilaterally. No free pelvic fluid. Distended urinary bladder. US/Transvaginal Non- IMPRESSION: Endometrium is within normal limits in thickness measuring 7 mm. Multiple ovarian follicles bilaterally. Electronically Signed: Davie Werner MD at 8:05 EST ,
== END | disposition home or self-care (01) ==
LOC: US 14:07
PROVIDERS: Referring Provider Obstetrics & Gynecology; Visit Provider Obstetrics & Gynecology
DX: N93.9 Abnormal uterine and vaginal bleeding, unspecified (principal)
CPT/HCPCS: 76830; 76856

== ENCOUNTER → 2023-05-03 | Outpatient (CLI) | payer BC, SELFPAY ==
--- NOTE | 2023-05-03 12:09 | US_ITS ---
EXAM: US LEFT UPPER EXTREMITY NON-VASCULAR, COMPLETE CLINICAL INDICATION: Generalized enlarged lymph nodes TECHNIQUE: Real-time ultrasound scan of the left axilla. COMPARISON: No relevant prior studies available. FINDINGS: SOFT TISSUES: Unremarkable. No abscess. No foreign body. LYMPH NODES: In the area of palpable abnormality there is a small normal-sized lymph node that appears morphologically normal. US/Ext Non Vasc Limited/Soft Tiss IMPRESSION: In the area of palpable abnormality there is a small normal-sized lymph node that appears morphologically normal. No mass or fluid collection identified. Electronically Signed: Tip Mai MD at 7:55 EDT ,
== END | disposition home or self-care (01) ==
DX: R59.1 Generalized enlarged lymph nodes (principal)
CPT/HCPCS: 76882

== ENCOUNTER → 2023-05-07 | Outpatient (CLI) | payer BC, SELFPAY ==
[2023-05-10 14:10] LABS: HPV APTIMA, High Risk Negative (Negative)
== END | disposition home or self-care (01) ==
PROVIDERS: Visit Provider Obstetrics & Gynecology
DX: Z12.4 Encounter for screening for malignant neoplasm of cervix (principal)
CPT/HCPCS: 87624; 88175; G0145

== ENCOUNTER → 2023-05-18 | Outpatient (CLI) | payer BC, SELFPAY ==
--- NOTE | 2023-05-18 08:51 | BI_ITS ---
MAMMOGRAPHY - BILATERAL DIAGNOSTIC REASON FOR EXAM: Female, 32 years old. Left axillary swelling. Recent right ultrasound of the axilla. PERTINENT HISTORY: TECHNIQUE: Digital bilateral breast mona (3D mammographic acquisition) in the CC and MLO projections. 2-D mediolateral oblique (MLO) and craniocaudad (CC) views of both breasts were obtained. CAD: Full Field Digital Mammography with Computer Added Detection was performed. COMPARISON: None. Baseline examination. FINDINGS: Breast Composition: The breasts are heterogeneously dense, which may obscure small masses. There are no dominant masses or suspicious calcifications. Small benign-appearing bilateral axillary lymph nodes. No other significant abnormalities are identified. BI/DIAG MAMM W/CAD, BILAT IMPRESSION: Negative diagnostic mammogram. Yearly followup mammogram recommended. (A) ASSESSMENT CATEGORY: BIRADS Category 2: Benign. A letter regarding these results will be sent to the patient by the facility within 30 days. Approximately 10% of breast cancers are not detected by mammography. A normal mammogram should not delay biopsy of a clinically suspicious abnormality. Electronically Signed: Servando Encinas MD at 9:44 EDT ,
== END | disposition home or self-care (01) ==
PROVIDERS: Referring Provider Obstetrics & Gynecology; Visit Provider Obstetrics & Gynecology
DX: M79.89 Other specified soft tissue disorders (principal)
CPT/HCPCS: 77062; 77066; G0279

== ENCOUNTER → 2023-08-17 | Outpatient (CLI) | payer BC, SELFPAY | END | disposition home or self-care (01) | PROVIDERS: Referring Provider Physician Assistant Surgical; Visit Provider Physician Assistant Surgical | DX: N39.0 Urinary tract infection, site not specified (principal) | CPT/HCPCS: 87077; 87086; 87088; 87186 ==

== ENCOUNTER → 2024-02-26 | Outpatient (CLI) | payer BC, SELFPAY ==
[2024-02-26 12:18] LABS: Absolute Lymphocyte Count 2.17 X10^3/uL (0.83-4.51); Absolute Neutrophil Count 2.7 X10^3/uL (2.0-7.7); Basophil# 0.08 X10^3/uL; Basophil% 1.4 % (0-1); Eosinophil# 0.28 X10^3/uL; Eosinophils% 4.9 % (0-5); Hematocrit 43.3 % (37-47); Hemoglobin 14.7 g/dL (12.0-15.0); Lymphocyte # 2.17 X10^3/ul (0.83-4.51); Lymphocyte % 38.3 % (19-41); Mean Corp Hgb Conc 33.9 g/dL (32-36); Mean Corpuscular Hgb 30.8 pg (27.0-32.0); Mean Corpuscular Volume 90.8 fL (81-99); Mean Platelet Vol. 11.3 fl (6.2-12.0); Monocyte# 0.44 X10^3/uL; Monocyte% 7.8 % (0-10); NRBC Flagged by Analyzer 0 % (0-5); Neutrophil # 2.69 X10^3/uL (2.7-7.7); Neutrophil % 47.4 % (47-70); Platelet Count 262 K/mm3 (150-450); RBC Distribution Width SD 39.7 fl (35.1-43.9); Red Blood Count 4.77 M/mm3 (4.2-5.4); White Blood Count 5.7 K/mm3 (4.4-11.0)
[2024-02-26 12:52] LABS: T4 Free Direct 1.07 ng/dL (0.76-1.46)
[2024-02-27 08:09] LABS: Thyroid Peroxidase AB < 9 IU/mL (0-34)
== END | disposition home or self-care (01) ==
PROVIDERS: Referring Provider Nurse Practitioner Women's Health; Visit Provider Nurse Practitioner Women's Health
DX: Z13.29 Encounter for screening for other suspected endocrine disorder (principal); N92.0 Excessive and frequent menstruation with regular cycle
CPT/HCPCS: 36415; 84439; 84443; 85025; 86376

== ENCOUNTER → 2024-03-05 | Outpatient (CLI) | payer BC, SELFPAY ==
--- NOTE | 2024-03-05 12:32 | US_ITS ---
EXAM: US PELVIS TRANSABDOMINAL AND TRANSVAGINAL, COMPLETE CLINICAL INDICATION: menorrhagia TECHNIQUE: Transabdominal and transvaginal pelvic ultrasound was performed with grayscale and color Doppler imaging. Transvaginal imaging was used for better evaluation of the endometrium and adnexa. COMPARISON: February 01, 2023, mentioned multiple ovarian follicles. FINDINGS: UTERUS/CERVIX: Unremarkable 9.8 cm x 4.2 cm x 14.7 cm. Anteverted on the transabdominal exam, mildly retroflexed on transvaginal exam. There is no uterine mass. Normal 1.4 cm echogenic fundal endometrial stripe thickness as measured on transabdominal, 1.1 cm maximum thickness on transvaginal exam. Multiple small nabothian cervical cysts. RIGHT OVARY: Unremarkable 3.3 cm x 1.9 cm x 2.7 cm. Tiny subcentimeter follicles. Non-enlarged, normal echogenicity. Blood flow is present in the right ovary. LEFT OVARY: Unremarkable with the exception of multiple simple follicles, the largest estimated to be 1.4 cm. Overall size 5 cm x 1.5 cm x 2.6 cm. Non-enlarged, normal echogenicity. Blood flow is present in the left ovary. FREE FLUID: Trace cul-de-sac fluid. Trace left adnexal fluid. BLADDER: Unremarkable as visualized. Wall is normal thickness for degree of distention. US/Pelvic w/ Transvaginal IMPRESSION: Trace left adnexal and cul-de-sac fluid. Minimally dominant follicle in the left ovary. Electronically Signed: Tiffanie Bergman MD at 2:21 EST ,
== END | disposition home or self-care (01) ==
LOC: US 12:32
PROVIDERS: Referring Provider Nurse Practitioner Women's Health; Visit Provider Nurse Practitioner Women's Health
DX: N92.0 Excessive and frequent menstruation with regular cycle (principal)
CPT/HCPCS: 76830; 76856

== ENCOUNTER → 2024-03-31 | Outpatient (CLI) | payer BC, SELFPAY | END | disposition home or self-care (01) | LOC: LAB 09:43 | PROVIDERS: Referring Provider Internal Medicine Endocrinology, Diabetes & Metabolism; Visit Provider Internal Medicine Endocrinology, Diabetes & Metabolism | DX: D35.2 Benign neoplasm of pituitary gland (principal) | CPT/HCPCS: 36415; 84146 ==

== ENCOUNTER → 2024-04-30 | Outpatient (CLI) | payer BC, SELFPAY ==
--- NOTE | 2024-04-30 11:12 | EMB_PTH ---
PATIENT: EVERETT MCCURDY LOC: [facility] U#:[id number] AGE/SX: 33/F ROOM: RE04/30/[address]: ELIJAH Catalan : 1990 BED: DIS: 04/30/2024 SPEC #: [id number] RECD: 04/30/24 12:14 STATUS: BEBETO REShelby #: [id number] NELSON: 04/30/24 11:[address]: Susie Miramontes NP DEPT: SURGICAL PATHOLOGY RECD BY: Praveena Ortiz ENTERED: 04/30/24 13:06 SP TYPE: ENDOM BX/C YUNIEL DR: No Primary Care Phys Tissues: Endometrium, NOS Procedures: Surgery Specimen Level IV HEADER OPERATION: Endometrial biopsy PRE-OP DIAGNOSIS: Abnormal uterine bleeding TISSUE SUBMITTED: Endometrial lining MICROSCOPIC DIAGNOSIS ENDOMETRIUM, CURETTAGE: * Proliferative endometrium. MICROSCOPIC DESCRIPTION Slides are reviewed. GROSS DESCRIPTION The specimen is received in a container labeled with the patient's name and not further designated. The specimen consists of multiple fragments of [place] soft tissue measuring 3 x 2.5 x 0.4 cm. TE2. eh 05/01/24 CPT: 76371
== END | disposition home or self-care (01) ==
PROVIDERS: Referring Provider Nurse Practitioner Women's Health; Visit Provider Nurse Practitioner Women's Health
DX: N93.9 Abnormal uterine and vaginal bleeding, unspecified (principal)
CPT/HCPCS: 88305

== ENCOUNTER → 2024-07-21 | Outpatient (CLI) | payer BC, SELFPAY ==
[2024-07-21 18:16] LABS: hCG Titer Quant., Serum 92 mIU/mL (<9 non-preg)
== END | disposition home or self-care (01) ==
LOC: LAB 16:24
PROVIDERS: Referring Provider Obstetrics & Gynecology; Visit Provider Obstetrics & Gynecology
DX: O20.9 Hemorrhage in early pregnancy, unspecified (principal); Z3A.00 Weeks of gestation of pregnancy not specified
CPT/HCPCS: 36415; 84702

== ENCOUNTER → 2024-07-23 | Outpatient (CLI) | payer BC, SELFPAY ==
[2024-07-23 19:36] LABS: hCG Titer Quant., Serum 21 mIU/mL (<9 non-preg)
== END | disposition home or self-care (01) ==
LOC: LAB 14:47
PROVIDERS: Referring Provider Obstetrics & Gynecology; Visit Provider Obstetrics & Gynecology
DX: O20.9 Hemorrhage in early pregnancy, unspecified (principal); Z3A.00 Weeks of gestation of pregnancy not specified
CPT/HCPCS: 36415; 84702

== ENCOUNTER → 2025-01-27 | Outpatient (CLI) | payer BC, SELFPAY ==
[2025-01-27 17:41] LABS: hCG Titer Quant., Serum 7157 mIU/mL (<9 non-preg)
--- OUTSIDE RECORDS SUMMARY | 2025-01-27 18:55 | XMS RPT_ITS | CCD ---
Author Organization [facility] Care Team Providers Care Finished Cigar Maker Name Role Phone EFE SOTELO L Unavailable Unavailable Efe Sotelous Unavailable Unavailab Cayla Zapien Primary Care Physician Unavaila ble EFE SOTELO L Admitting Unavailable SOTELO, EFE L Attending Unavailable NONE, NONE Consulting Unavailable EFE SOTELO L Consulting Unavailable LESLIE ROBLEDO Attending Unavailable SONIA VANN Primary Care Unavailable VANNSANAI JOHNSONLEE N Primary Care Unavailable JUDE CARVAJAL Admitting Unavailable VANN, SONIA N Primary Care Unavailable JUDE CARVAJAL Admitting Unavailable VannAllison johnsone N Primary Care Provider Sonia Vann CNP Primary Care Provider SONIA VANN Primary Care Unavailable LINO LO Attending Unavailable Dr. Yolis Gibson Attending Provider [phone] GABY VANN Primary Care Provider Unavaila GABY Hong Referring Provider Unavailable Dr. Yolis Gibson Attending Provider [phone] GABY VANN Primary Care Provider Unavaila GABY Hong Referring Provider Unavailable Dr. Nikki Monroy Attending Provider [phone] Care Physician, No Primary Primary Care Provider Unavailable Care Physician, No Primary Referring Provider Un available Dr. Nikki Monroy Attending Provider [phone] Care Physician, No Primary Primary Care Provider Unavailable Care Physician, No Primary Referring Provider Un available Dr. Yolis Gibson Attending Provider [phone] Dr. Nikki Monroy Referring Provider [phone] Dr. Yolis Gibson Other Provider Dr. Nikki Monroy Admit Provider Dr. Nikki Monroy Other Provider Care Physician, No Primary Primary Care Provider Unavailable Care Physician, No Primary Referring Provider Un available Dr. Nikki Monroy Attending Provider [phone] Tirso AN/SSN 2 4 OPERATOR, AN/SSN 2 4 OPERATOR-C Suzanne Attending Provider Fe AN/SSN 2 4 OPERATOR, AN/SSN 2 4 OPERATOR-C Susie Attending Provider [phone] Sabino Galvan MD Primary Care Provider Unavailab SABINO Ramos Primary Care Unavailable JUDE CARVAJAL Attending Unavailable SONIA VANN Referring Unavailable SABINO GALVAN Primary Care Unavailable Care Physician, No Primary Primary Care Provider Unavailable Care Physician, No Primary Referring Provider Un available Dr. Nikki Monroy Attending Provider [phone] Care Physician, No Primary Primary Care Provider Unavailable Care Physician, No Primary Referring Provider Un available Dr. Nikki Monroy Attending Provider [phone] Dr. Yolis Gibson Attending Provider [phone] SONIA VANN Primary Care Provider Unavaila ble Care Physician, No Primary Primary Care Provider Unavailable Care Physician, No Primary Referring Provider Un available [place] AN/SSN 2 4 OPERATOR-CSusie Attending Provider [phone] [place] AN/SSN 2 4 OPERATOR-CSusie Referring Provider Dr. Demetris Houston MD Attending Provider Dr. Demetris Houston MD Referring Provider Wing BARNHART, Sage Unavailable Care Physician, No Primary Primary Care Provider Unavailable Care Physician, No Primary Referring Provider Un available [place] AN/SSN 2 4 OPERATOR-CSusie Attending Provider Fe AN/SSN 2 4 OPERATOR-C, Susie Referring Provider Sherman Montemayor Attending Provider Etienne ROE-CNory Attending Provider Eliana CAO, Dr. Jordan Attending Provider Dr. Nikki Monroy MD Referring Provider [phone] SHINCARLOS, SHAIR Referring Unavailable SHINDORF, SHARI Admitting Unavailable SHINDORF, SHARI Attending Unavailable SHINDORF, SHARI Referring Unavailable SHINDORF, SHARI Attending Unavailable GOSAGE RIDLEY Referring Unavailable SHINRF, SHARI Attending Unavailable Care Physician, No Primary Primary Care Provider Unavailable Care Physician, No Primary Referring Provider Un available Care Physician, No Primary Primary Care Provider Unavailable Care Physician, No Primary Referring Provider Un available Sherman Montemayor Attending Provider [phone] [place] NASH, Dr. Willson Attending Provider Care Physician, No Primary Primary Care Unava ilable Nikki Monroy Referring Unavailable Nikki Monroy Attending Unavailable Care Physician, No Primary Primary Care Unava ilable Nikki Monroy Attending Unavailable Nikki Monroy Referring Unavailable Care Physician, No Primary Primary Care Unava ilable Susie Miramontes Referring Unavailable Susie Miramontes Attending Unavailable Care Physician, No Primary Primary Care Unava ilable Care Physician, No Primary Referring Unava ilNikki Gomez Attending Unavailable Care Physician, No Primary Referring Unava ilable Susie Miramontes Attending Unavailable Care Physician, No Primary Primary Care Unava ilable Care Physician, No Primary Primary Care Unava ilable Care Physician, No Primary Referring Unava ilSherman Bergman Attending Unavailable Care Physician, No Primary Primary Care Unava ilable Demetris Houston Attending Unavailable Care Physician, No Primary Referring Unava ilable Care Physician, No Primary Primary Care Unava ilable Alfredo Kolb Attending Unavailable Care Physician, No Primary Referring Unava ilable Care Physician, No Primary Primary Care Unava ilable Care Physician, No Primary Referring Unava ilDemetris Moody Attending Unavailable Care Physician, No Primary Primary Care Unava ilable Care Physician, No Primary Referring Unava ilable Susie Miramontes Attending Unavailable Care Physician, No Primary Primary Care Unava ilable Care Physician, No Primary Referring Unava ilable Sherman Montemayor Attending Unavailable Care Physician, No Primary Primary Care Unava ilable Care Physician, No Primary Referring Unava ilable Nory Clifton Attending Unavailable Care Physician, No Primary Primary Care Unava ilable Susie Miramontes Referring Unavailable Susie Miramontes Attending Unavailable Care Physician, No Primary Primary Care Unava ilable Liami Referring Unavailable CelsoLiami Attending Unavailable Care Physician, No Primary Primary Care Unava ilable Susie Miramontes Attending Unavailable Susie Miramontes Referring Unavailable Allergies Allergy Classification Reported Allergen(s) Allergy Type Date of Onset Reaction(s) Facility (1 source) Weeds Allergy to substance (disorder) [employer] (1 source) Plants Allergy to substance (disorder) [employer] Medications Current Medications Medication Drug Class(es) Dates Sig (Normalized) Sig (Original) [id number] 200 actuat albuterol 0.09 mg/actuat metered dose inhaler (1 source) beta2-Adrenergic Agonist Start: 02-02-2021 take 2 puff(s) by inhalation every four to six hours as needed for cough albuterol 90 mcg/actuation inhaler Indications: Cough , Wheeze Use 2 puffs every 4 to 6 hours as needed for cough, wheeze, or shortness of breath, dispense with spacer. . 18 g 0 02/02/2021 Active Start: 02-02-2021 take 2 puff(s) by in halation every four to six hours as needed for cough albuterol 90 mcg/actuation inhaler Indications: Cough , Wheeze Use 2 puffs every 4 to 6 hours as needed for cough, wheeze, or shortness of breath, dispense with spacer. . 18 g 0 02/02/2021 Active B-Complex With Vitamin C tablet (5 sources) Start: 07-24-2024 B-Complex With Vitamin C tablet Active 1 {tbl} PO daily July 24, 2024 12:00am Pnv #22-Rkho-Kouqs Acid-Dha (10 sources) Start: 09-07-2021 take 1 capsule by mouth once daily Pnv #58-Twfz-Wsshu Acid-Dha Active 1 CAP PO DAILY September 06, 2021 11:00pm Start: 09-07-2021 take 1 capsule by [facility] once daily Pnv #87-Egyp-Fymod Acid-Dha Active 1 CAP PO DAILY September 07, 2021 12:00am Pnv #29-Qllm-Griop Acid-Dha 35 mg iron-5 mg iron-1 mg capsule (6 sources) Start: 09-07-2021 Pnv #56-Iron-F olic Acid-Dha 35 mg iron-5 mg iron-1 mg capsule Active 1 NMA PO DAILY September 07, 2021 12:00am Start: 09-07-2021 Pnv #56-Iron-F olic Acid-Dha 35 mg iron-5 mg iron-1 mg capsule Active 1 NMA PO DAILY September 07, 2021 12:00am predniSONE 20 mg oral tablet (1 source) Start: 02-02-2021 predniSONE (DE LTASONE) 20 MG tablet Indications: Wheeze , Lower respiratory infection Take 2 tabs daily x 5 days . 10 tablet 0 02/02/2021 Active Start: 02-02-2021 predniSONE (DE LTASONE) 20 MG tablet Indications: Wheeze , Lower respiratory infection Take 2 tabs daily x 5 days . 10 tablet 0 02/02/2021 Active MV-Min-Fe Fum-FA-DHA ( 1 PO) (1 source) MV-Min- Fe Fum-FA-DHA ( 1 PO) Take by mouth. 0 Active vit no.124/iron/folic ( VITAMIN ORAL) (6 sources) take 1 capsule by mo uth once daily vit no.124/iron/folic ( VITAMIN ORAL) Take 1 capsule by mouth once daily. Active vitamin b complex capsule (6 sources) take 1 capsule by mo uth once daily vitamin b complex capsule Take 1 capsule by mouth once daily. Active Completed/Discontinued Medications Medication Drug Class(es) Dates Sig (Normalized) Sig (Original) amoxicillin 875 mg / clavulanate 125 mg oral tablet (6 sources) Penicillin-class Antibacterial Start: 05-22-2024 End: 06-01-2024 Amoxicillin-Pot Clavulanate 875-125 mg tablet Discontinued 1 {tbl} PO Q12H 20 10 0 May 22, 2024 12:00am May 31, 2024 12:00am June 01, 2024 12:05am Acute sinusitis, unspecified Start: 02-02-2021 End: 02-12-2021 take 1 tablet by mouth twice daily amoxicillin-clavulanate (Augmentin) 875-125 mg per tablet Indications: Acute rhinosinusitis , Lower respiratory infection Take 1 (one) tablet by mouth 2 (two) times a day for 10 days . 20 tablet 0 02/02/2021 02/12/2021 Active aspirin 81 mg delayed release oral tablet (15 sources) Platelet Aggregation Inhibitor, Nonsteroidal Anti-inflammatory Drug Start: 11-03-2021 End: 12-02-2021 take 1 tablet by mouth once daily Aspirin 81 mg tablet,delayed release (DR/EC) Discontinued 81 mg PO DAILY November 03, 2021 12:00am December 02, 2021 11:14am bromocriptine 2.5 mg oral tablet (2 sources) Ergot Derivative Start: 11-08-2017 End: 07-31-2018 take 1 tablet by mouth once daily at bedtime bromocriptine 2.5 mg oral tablet 11/08/2017 07/31/2018 take 1 tablet (2.5 mg) by oral route once daily at bedtime Start: 01-18-2017 End: 07-12-2017 bromocriptine 2.5 mg oral ta blet 01/18/2017 07/12/2017 take 8 tabs/week for 1 month, then 9/week x 1 month, then 10/week x 1 month, 2 Mon,Wed,Fri, 1 Tues,Thrus,Sat,Sun budesonide 0.5 mg/ml inhalation suspension (6 sources) Corticosteroid Start: 03-31-2024 End: 07-24-2024 take 0.5 mg by inhalation twice daily Budesonide 1 mg/2 mL suspension for nebulization Discontinued 0.5 mg INHALATION TWICE A DAY March 31, 2024 1:00am July 24, 2024 8:04am cabergoline 0.5 mg oral tablet (2 sources) Ergot Derivative Start: 04-07-2021 End: 04-13-2021 take 1 tablet by mouth two times weekly Cabergoline 0.5 MG tablet Indications: Prolactinoma Take 1 tablet by mouth twice a week. 24 tablet 4 04/07/2021 04/13/2021 Discontinued () Start: 01-30-2018 take 1 tablet by nathaniel two times weekly cabergoline 0.5 mg oral tablet 01/30/2018 take 1 tablet (0.5 mg) by oral route twice weekly cephalexin 500 mg oral capsule (16 sources) Cephalosporin Antibacterial Start: 09-17-2021 End: 10-06-2021 take 1 capsule by mouth every six hours Cephalexin 500 mg capsule Discontinued 500 mg PO EVERY 6 HOURS 12 0 September 17, 2021 12:00am October 06, 2021 11:22am famotidine 20 mg oral tablet (20 sources) Histamine-2 Receptor Antagonist Start: 02-16-2022 End: 05-04-2022 take 1 tablet by mouth once daily Famotidine (Pepcid) 20 mg tablet Discontinued 20 mg PO DAILY March 16, 2022 6:54pm May 04, 2022 10:17am acid reflux fluticasone propionate 0.05 mg/actuat metered dose nasal spray (20 sources) Corticosteroid Start: 08-17-2023 End: 07-24-2024 take 50 ug nasal route once daily Fluticasone Propionate (Children's Flonase Allergy Rlf) 50 mcg/actuation spray,suspension Discontinued 1 NMA INTRANASAL DAILY August 17, 2023 12:00am July 24, 2024 8:04am administer into each nostril Start: 08-31-2021 End: 05-07-2023 Fluticasone Propionate 50 mc g/actuation spray,suspension Discontinued 1 NMA INTRANASAL DAILY August 31, 2021 12:00am May 07, 2023 3:48pm allergies administer into each nostril Start: 08-31-2021 End: 05-07-2023 take 1 spray(s) nasal route once daily Fluticasone Propionate Discontinued 1 SPRAY INTRANASAL DAILY August 31, 2021 12:00am May 07, 2023 3:48pm administer into each nostril take 2 spray(s) nasa l route once daily Fluticasone Furoate 27.5 mcg/actuation nasal spray Use 2 sprays in each nostril once daily. Active fluticasone prop ionate (FLONASE ALLERGY RELIEF NASL) Instill into each nostril . 0 Active take 1-2 spray(s) na radha route once daily fluticasone 50 mcg/actuation nasal spray,suspension spray 1 - 2 sprays (50 - 100 mcg) in each nostril by intranasal route once daily Ipratropium [place] 21 mcg ( 0.03 %) spray,non-aerosol (5 sources) Start: 05-22-2024 End: 07-24-2024 Ipratropium [place] 21 mcg (0.03 %) spray,non-aerosol Discontinued 2 NMA INTRANASAL 2 to 3 times per day as needed for postnasal drainage 30 May 22, 2024 12:00am July 24, 2024 8:04am administer into each nostril Start: 05-22-2024 End: 07-24-2024 Ipratropium [place] 21 mcg ( 0.03 %) spray,non-aerosol Discontinued 2 NMA INTRANASAL 2 to 3 times per day as needed for postnasal drainage May 22, 2024 12:00am July 24, 2024 8:04am administer into each nostril loratadine 10 mg oral tablet (20 sources) Start: 01-19-2022 End: 01-26-2023 take 1 tablet by mouth once daily Loratadine (Claritin) 10 mg tablet Discontinued 10 mg PO DAILY January 19, 2022 1:00am January 26, 2023 12:08pm allergies Start: 08-31-2021 End: 01-19-2022 take 1 tablet by mouth once Loratadine (Claritin Reditabs) 5 mg tablet,disintegrating Discontinued 5 mg PO ONCE August 31, 2021 12:00am January 19, 2022 9:25am metoclopramide 10 mg oral tablet (15 sources) Dopamine-2 Receptor Antagonist Start: 11-03-2021 End: 12-02-2021 take 1 tablet by mouth 30 minutes before mealtime for nausea and vomiting Metoclopramide Hcl (Reglan) 10 mg tablet Discontinued 10 mg PO before meals as needed for nausea and vomiting November 03, 2021 12:00am December 02, 2021 11:14am administer 30 minutes before meals nitrofurantoin, macrocrystals 25 mg / nitrofurantoin, monohydrate 75 mg oral capsule (6 sources) Nitrofuran Antibacterial Start: 08-17-2023 End: 08-24-2023 take 1 capsule by mouth every twelve hours at mealtime Nitrofurantoin Monohyd/M-Cryst 100 mg capsule Discontinued 1 NMA PO Q12H 14 7 0 August 17, 2023 12:00am August 23, 2023 12:00am August 24, 2023 12:05am administer with a meal/food; swallow whole; do not open, crush, dissolve , or chew promethazine hydrochloride 12.5 mg oral tablet (15 sources) Phenothiazine Start: 11-03-2021 End: 12-02-2021 take 1 tablet by mouth every six hours as needed for nausea and vomiting Promethazine 12.5 mg tablet Discontinued 12.5 mg PO EVERY 6 HOURS as needed for nausea and vomiting 30 3 November 03, 2021 12:00am December 02, 2021 11:09am sertraline 100 mg oral tablet (20 sources) Serotonin Reuptake Inhibitor Start: 05-04-2022 End: 07-16-2024 take 1 tablet by mouth once daily Sertraline 100 mg tablet Discontinued 100 mg PO DAILY 30 0 June 05, 2024 2:41pm July 16, 2024 12:33pm anxiety Start: 05-04-2022 End: 05-04-2022 Sertraline (Zoloft) 25 mg ta blet Discontinued 150 mg PO DAILY May 04, 2022 10:33am May 04, 2022 10:35am anxiety Start: 12-02-2021 End: 05-04-2022 take 1 tablet by mouth once daily Sertraline (Zoloft) 25 mg tablet Discontinued 25 mg PO DAILY December 02, 2021 12:00am May 04, 2022 10:34am anxiety 24 hr venlafaxine 37.5 mg extended release oral capsule (20 sources) Serotonin and Norepinephrine Reuptake Inhibitor Start: 12-02-2021 End: 01-19-2022 take 1 capsule by mouth once daily Venlafaxine (Effexor Xr) 37.5 mg capsule,extended release 24hr Discontinued 37.5 mg PO DAILY December 02, 2021 12:00am January 19, 2022 9:25am Start: 11-01-2018 End: 05-11-2022 take 1 capsule by mouth once daily Venlafaxine 150 mg capsule,extended release 24hr Discontinued 150 mg PO DAILY August 31, 2021 12:00am December 02, 2021 11:14am Start: 07-12-2017 take 1 capsule by mo [facility] once daily venlafaxine 150 mg oral capsule,extended release 24hr 07/12/2017 take 1 capsule (150 mg) by oral route once daily take 1 tablet by twice daily venlafaxine (EFFEXOR) 75 MG tablet Take 75 mg by mouth 2 (two) times a day . 0 Active Problems Active Problems Problem Classification Problem Date Documented Date Episodic/Chronic Allergic reactions (8 sources) Irritant contact dermatitis due to plant; Translations: [Irritant contact dermatitis due to plants, except food] 02-26-2024 Episodic Cancer of cervix (20 sources) Atypical squamous cells of undetermined significance on cervical Papanicolaou smear; Translations: [Atypical squamous cells of undetermined significance on cytologic smear of cervix (ASC-US)] Episodic Comment on above: Repeat pap in 3 year s Hypertension complicating ; childbirth and the puerperium (18 sources) pre-eclampsia; Translations: [Mild to moderate pre-eclampsia, complicating the puerperium] 03-17-2022 Episodic Comment on above: no Mag or treatment needed in labor. exp management . fu in office in 1 week for bp check. start anti HTN medication if bps greater than 150/100 consistently. Immunizations and screening for infectious disease (1 source) Contact with or exposure to other viral diseases; Translations: [Lab test negative for COVID-19 virus] Episodic Melanomas of skin (13 sources) Malignant melanoma of lower limb ; Translations: [Malignant melanoma of left lower limb, including hip] Onset: 07-22-2024 07-22-2024 Chronic Menstrual disorders (15 sources) Absence of menstruation; Translations: [Menorrhagia] Onset: 03-25-2024 04-30-2024 Chronic Comment on above: Nl US. EMB pending. Nl US. EMB nl. Mood disorders (20 sources) Depressive disorder; Translations: [Depression] Chronic Comment on above: effexor, counseling encouraged. Neoplasms of unspecified nature or uncertain behavior (20 sources) Neoplasm of unspecified nature of endocrine glands and other parts of nervous system; Translations: [Neoplasm of unspecified behavior of endocrine glands and other parts of nervous system] Onset: 07-12-2017 Episodic Comment on above: prolactinoma, no med s at present. on bromocriptine in the past. monitored by Endo- Dr Gutierrez. Other and unspecified benign neoplasm (2 sources) Benign neoplasm of pituitary gland and craniopharyngeal duct Onset: 01-18-2017 Episodic Other and unspecified benign neoplasm (12 sources) Prolactinoma; Translations: [Benign neoplasm of pituitary gland] Onset: 11-06-2018 Episodic Other complications of ; puerperium affecting management of mother (1 source) Other disorders of breast associated with and the puerperium; Translations: [Other and unspecified disorder of breast associated with childbirth, condition or complication] 03-20-2022 Episodic Other complications of (16 sources) High risk ; Translations: [Supervision of high risk , unspecified, unspecified trimester] 03-17-2022 Episodic Comment on above: PRR , EDD//2 3, girl Umm BF Eric Other complications of (20 sources) Supervision of high risk , unspecified, unspecified trimester; Translations: [Supervision of unspecified high-risk ] Episodic Other complications of (15 sources) Disease caused by 2019-nCoV; Translations: [Other viral diseases complicating , unspecified trimester] 03-17-2022 Episodic Comment on above: 81 mg ASA. 32 and 36 week growth US, 03/09 nl growth, EFW 2662 in 37th%. Other complications of (20 sources) Other viral diseases complicating , unspecified trimester; Translations: [Other viral diseases in the mother, antepartum condition or complication] Episodic Other complications of (14 sources) Vacuum assisted vaginal delivery; Translations: [Outcome of delivery, unspecified] 03-17-2022 Episodic Comment on above: IOL mild preeclampsi a. 37 SM girl Umm. VAVD cat II tracing Other complications of (14 sources) Urinary tract infection in ; Translations: [Unspecified infection of urinary tract in , unspecified trimester] 03-17-2022 Episodic Comment on above: 09/17/22 in ER, plan pcn in labor Other complications of (3 sources) Unspecified infection of urinary tract in , unspecified trimester; Translations: [Infections of genitourinary tract in , unspecified as to episode of care or not applicable] 03-18-2022 Episodic Other endocrine disorders (1 source) Other and unspecified anterior pituitary hyperfunction Onset: 07-31-2018 Chronic Other female genital disorders (5 sources) Abnormal uterine bleeding; Translations: [Abnormal uterine and vaginal bleeding, unspecified] 01-26-2023 Chronic Other female genital disorders (6 sources) Abnormal uterine and vaginal bleeding, unspecified; Translations: [Unspecified disorders of menstruation and other abnormal bleeding from female genital tract] Onset: 05-07-2024 01-26-2023 Chronic Other lower respiratory disease (1 source) Cough; Translations: [Cough] Episodic Other lower respiratory disease (1 source) Wheezing; Translations: [Wheezing] Episodic Other lower respiratory disease (1 source) Lower respiratory tract infection; Translations: [Unspecified acute lower respiratory infection] Episodic Other and delivery including normal (20 sources) ; Translations: [Encounter for supervision of normal , unspecified, unspecified trimester] Episodic Comment on above: anatomy nl, NIPT low risk, gender female. 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 01/30 Other skin disorders (10 sources) Mass of axilla; Translations: [Localized swelling, mass and lump, unspecified upper limb] 06-19-2024 Episodic Other skin disorders (4 sources) Localized swelling, mass and lump, left upper limb; Translations: [Localized superficial swelling, mass, or lump] Onset: 07-22-2024 07-22-2024 Episodic Other upper respiratory disease (16 sources) Seasonal allergy; Translations: [Other seasonal allergic rhinitis] 10-06-2021 Chronic Comment on above: taking claritin Other upper respiratory disease (2 sources) Other seasonal allergic rhinitis; Translations: [Allergic rhinitis, cause unspecified] Chronic Spontaneous (10 sources) with abortive outcome; Translations: [Complete or unspecified spontaneous without complication] 07-24-2024 Episodic Unclassified (12 sources) Mass of axillary tail of left breast; Translations: [N63.32 - Unspecified lump in axillary tail of the left breast] Urinary tract infections (16 sources) Urinary tract infectious disease; Translations: [Urinary tract infection, site not specified] 09-25-2021 Episodic Past or Other Problems Problem Classification Problem Date Documented Date Episodic/Chronic Hemorrhage during ; abruptio placenta; placenta previa (20 sources) Threatened miscarriage; Translations: [Threatened ] Onset: 07-29-2024 09-25-2021 Episodic Nonmalignant breast conditions (1 source) Galactorrhea not associated with childbirth; Translations: [Galactorrhea not associated with childbirth] Onset: 09-25-2024 Episodic Open wounds of extremities (1 source) Laceration of finger; Translations: [Laceration of right little finger without foreign body without damage to nail, initial encounter] Episodic Other and unspecified benign neoplasm (1 source) Benign neoplasm of pituitary gland; Translations: [Benign neoplasm of pituitary gland] Onset: 04-14-2024 Episodic Other screening for suspected conditions (not mental disorders or infectious disease) (20 sources) Patient encounter status; Translations: [Encounter for nonprocreative screening for genetic disease carrier status] Onset: 03-18-2024 Episodic Comment on above: 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 Other upper respiratory infections (14 sources) Sore throat symptom; Translations: [Acute pharyngitis, unspecified] Onset: 05-22-2024 Episodic Unclassified (2 sources) Mass of left axilla 07-22-2024 Results Test Name Value Interpretation Reference Range Facility Urgent Care Visit Reporton 1 02-29-2024 Urgent Care Visit Report [facility] [address], [address] [place] [id number] OFFICE VISIT Date of Service: 12/29/24 MR#: [id number] Acct: [id number] Name: EVERETT MCCURDY Rep #: [id number] : 1990 Provider: ADENIKE Painter Age/Sex: 34/F Location: [facility] [place] [facility] Status: Signed Intake Vital Signs 09/25/24 10:53 12/29/24 09:13 Height 6 ft 1 in Weight: 204 lb 6 oz BMI 26.9 BP 130/84 H 124/82 H Blood Pressure Location Lt brachial Position Sitting Sitting Respiration 18 Pulse 72 104 H Pulse Source Monitor Temp 99.3 F H Temp Source Oral Pulse Oximetry (%) 98 98 Oxygen Delivery Method room air room air Intake Visit Reasons: chest congestion Chief Complaint: chest congestion Accompanied by: Self Allergies No Known Allergies Allergy (Verified 12/29/24 09:18) Medications ???Medication ???Instructions ???Recorded ???Confirmed ???Type vitamin no.56-iron 35 mg 1 cap PO DAILY 09/07/21 12/29/24 History and 5 mg-folic acid 1 mg-dha capsule sertraline 100 mg tablet 100 mg PO DAILY anxiety #30 tabs 0 07/16/24 12/29/24 Rx B-complex with vitamin C 1 tab PO QDAY 07/24/24 12/29/24 Hi story azithromycin 250 mg tablet 250 mg PO .COMPLEX #12 tabs 12/29/24 Rx Nurse's Note: Patient has chest congestion that has been going on since Sunday. Patient states that she also has sinus pressure and lots of green snot. 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 current occupational exposures/hazards: Yes (formaldehyde) pets and animals: Yes (not managing litter box) pets and animals: cat(s) leisure activities: exercise history of recent travel: No sexually active: Yes Smoking Status: Former smoker quit date: 10/22/13 how long ago did patient quit smokin years second hand exposure: No alcohol intake: former details: socially rare substance use type: does not use well-balanced diet: daily or most days caffeine: No eating out: rarely or never during the past year weight has: remained stable what type of physical activity do you participate in: aerobics frequency: 3-4 times per week joey/caodaism: None seatbelt use: always do you feel safe at home: Yes additional social history: BF Eric Female Reproductive History Menstrual Ab spontaneous: 1 HPI HPI Chief Complaint: chest congestion Details: EVERETT MCCURDY, is a 34 F who presents to the office today for [facility] evaluation [facility] for approximately 3 day history of persistent fever, chills, cough, FABIAN, myalgias, fatigue, congestion/ runny nose, nausea, and diarrhea. Patient notes no complaints of chest pain or shortness of breath or dyspnea on exertion. Several close contacts recently dx???d w/ similar URI complaints. No [id number] taken to assist. No other associated symptoms and no other alleviating/aggravating factors. ROS Const Constitutional: No other (As above) Exam Const General: cooperative, healthy appearing and no acute distress Orientation: alert, awake HENMT Head: normal to inspection Ears: hearing grossly normal bilaterally, external ears normal, TM's normal bilaterally and EAC's normal Nose: external nose normal, nares normal, septum normal and no nasal discharge Face and sinus: normal facial exam, sinuses nontender and face symmetric Mouth: oral mucosae normal, lip normal, tongue normal and oropharynx normal Throat: posterior oropharynx normal, tonsils normal, uvula midline and scant amount purulent postnasal drainage Eyes General: appearance normal, both eyes and all related structures Neck Neck: normal visual inspection, full ROM, no lymphadenopathy, no meningeal signs and supple Neck mass: No Thyroid: thyroid normal Lymphatic: no lymphadenopathy noted Chest Chest palpation inspection: normal inspection of the chest Resp Effort Inspection: normal respiratory effort, able to speak in complete sentences and no unsolicited cough during today's name Auscultation: Bilateral: Clear to Auscultation Cardio Palpation: normal PMI Rate: tachycardic Rhythm: regular rhythm (more content not included)... Normal [facility] Endocrinology Visit Reporton 09-25-2024 Endocrinology Visit Report [facility] [address] [place] [address] OFFICE VISIT Date of Service: 09/25/24 MR#: [id number] Acct: [id number] Name: EVERETT MCCURDY Rep #: [id number] : 1990 Provider: Ugo Reynolds Age/Sex: 33/F Location: [facility] [place] [facility] Status: Signed Intake Vital Signs 03/31/24 08:57 07/24/24 08:00 09/25/24 10:53 Height 6 ft 1 in 6 ft 1 in 6 ft 1 in Weight: 204 lb 6 oz BMI 26.9 BP 130/84 H Blood Pressure Location Lt brachial Position Sitting Pulse 72 Pulse Source Monitor Pulse Oximetry (%) 98 Oxygen Delivery Method room air Intake Visit Reasons: 6 M FU Chief Complaint: Prolactinoma Is patient in pain?: No Allergies No Known Allergies Allergy (Verified 09/25/24 10:55) Medications ???Medication ???Instructions ???Recorded ???Confirmed ???Type vitamin #56-iron 35 mg 1 cap PO DAILY 09/07/21 09/25/24 History and 5 mg-folic acid 1 mg-dha capsule sertraline 100 mg tablet 100 mg PO DAILY anxiety #30 tabs 0 07/16/24 09/25/24 Rx B-complex with vitamin C 1 tab PO QDAY 07/24/24 09/25/24 Hi story 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 current occupational exposures/hazards: Yes (formaldehyde) pets and animals: Yes (not managing litter box) pets and animals: cat(s) leisure activities: exercise history of recent travel: No sexually active: Yes Smoking Status: Former smoker quit date: 10/22/13 how long ago did patient quit smokin years second hand exposure: No alcohol intake: former details: socially rare substance use type: does not use well-balanced diet: daily or most days caffeine: No eating out: rarely or never during the past year weight has: remained stable what type of physical activity do you participate in: aerobics frequency: 3-4 times per week joey/caodaism: None seatbelt use: always do you feel safe at home: Yes additional social history: BF Eric Female Reproductive History Menstrual Ab spontaneous: 1 HPI HPI Chief Complaint: Prolactinoma Details: EVERETT KAZ, is a 33 F who presents to the office today for follow up. She has history of prolactinoma. She was able to stop cabergoline in 2023. Last prolactin level was 33. Cycle is regular. She did conceive this year, but had miscarriage at about 6 weeks. She was diagnosed at treated for melanoma. She isn't sure if she will try again for a baby, enjoying her family as it is right now. ROS Const Constitutional: No fatigue or weight change ENT ENT: No dizziness/vertigo Cardio Cardiology: No chest pain at rest, chest pain with exertion, shortness of breath or palpitations Skin Skin: No wounds Endo Endocrine: No fatigue or weight change Exam Const General: cooperative, healthy appearing, comfortable, no acute distress, well developed and not cushingoid Nutritional Appearance: well nourished Orientation: alert, awake and oriented x3 HENMT Head: normal to inspection Ears: hearing grossly normal bilaterally Nose: external nose normal Mouth: oral mucosae normal Eyes General: appearance normal, both eyes and all related structures Alignment and Position: alignment normal Periorbital: periorbital findings normal Eyelids: eyelids normal Conjunctivae: conjunctivae normal Neck Neck: normal visual inspection Neck mass: No Thyroid: asymmetrical (R lobe top normal) Lymphatic: no lymphadenopathy noted Chest Chest palpation inspection: normal inspection of the chest Resp Effort Inspection: normal respiratory effort, able to speak in complete sentences, symmetric chest movement, no audible wheezes and no cough Auscultation: Bilateral: Clear to Auscultation Cardio Rate: regular rate Rhythm: regular rhythm Skin General: no rashes or lesions noted Neuro General: patient alert, patient awake and patient oriented x3 Cranial Nerves: CN's II-XI intact bilaterally Cognition: normal cognition Speech: speech normal Gait: normal gait Motor: muscle tone normal throughout Extrem General: no edema Psych Appearance: g (more content not included)... Normal [facility] Urgent Care Visit Reporton 0 08-22-2024 Urgent Care Visit Report [facility] [address], [address] [place] [address] OFFICE VISIT Date of Service: 08/22/24 MR#: [id number] Acct: [id number] Name: KAZEVERETT PRITCHARD Rep #: [id number] : 1990 Provider: ADENIKE Rivero Age/Sex: 33/F Location: [facility] [place] Status: Signed Intake Vital Signs 07/24/24 08:00 08/22/24 09:17 Height 6 ft 1 in BP 110/60 Position Sitting Respiration 16 Pulse 79 Temp 98.9 F Temp Source Oral Pulse Oximetry (%) 98 Oxygen Delivery Method room air Intake Visit Reasons: SORE THROAT, HIVES Accompanied by: Self Allergies No Known Allergies Allergy (Verified 08/22/24 09:23) Medications ???Medication ???Instructions ???Recorded ???Confirmed ???Type vitamin #56-iron 35 mg 1 cap PO DAILY 09/07/21 08/22/24 History and 5 mg-folic acid 1 mg-dha capsule sertraline 100 mg tablet 100 mg PO DAILY anxiety #30 tabs 0 07/16/24 08/22/24 Rx B-complex with vitamin C 1 tab PO QDAY 07/24/24 08/22/24 Hi story Nurse's Note: Patient has ST and hives. Patient states her throat started hurting about 3 days ago. Patient states the hives started yesterday on her hip and then went to her back and they are worse on her back. Patient states they moved to her arms and hands now. 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 current occupational exposures/hazards: Yes (formaldehyde) pets and animals: Yes (not managing litter box) pets and animals: cat(s) leisure activities: exercise history of recent travel: No sexually active: Yes Smoking Status: Former smoker quit date: 10/22/13 how long ago did patient quit smokin years second hand exposure: No alcohol intake: former details: socially rare substance use type: does not use well-balanced diet: daily or most days caffeine: No eating out: rarely or never during the past year weight has: remained stable what type of physical activity do you participate in: aerobics frequency: 3-4 times per week joey/caodaism: None seatbelt use: always do you feel safe at home: Yes additional social history: BF Eric Female Reproductive History Menstrual Ab spontaneous: 1 HPI HPI Details: EVERETT MCCURDY, is a 33 F who presents to the office today for complaint of sore throat and hives. Patient states sore throat has been present for the past 2 to 3 days and then the hives started last night. Patient states that it started on her back and has now traveled into her extremities. She denies any new foods, environmental exposures or medications. No shortness of breath, difficulty breathing or chest pain. No lip/tongue/throat swelling. No other associated symptoms or alleviating/aggravating factors. ROS Const Constitutional: No other (6 system ROS completed with pertinent findings in the HPI otherwise normal.) Exam Const General: cooperative and healthy appearing HENMT Head: normal to inspection Ears: hearing grossly normal bilaterally and EAC's normal Nose: external nose normal and nasal discharge clear Mouth: oral mucosae normal Throat: abnormal tonsil bilaterally Resp Effort Inspection: normal respiratory effort Auscultation: Bilateral: Clear to Auscultation Cardio Rate: regular rate Rhythm: regular rhythm Skin Other: Hive-like rash on the back, trunk and lower extremities bilaterally. Neuro General: patient alert Psych Appearance: grossly normal Mental Status: mental status grossly normal Office Procedures Ortho Injections Injections Is this a patient provided medication?: No Office Meds Kenalog 40 mg/mL suspension for injection Performing Provider: ADENIKE Monreal Performing Location[facility] Administered by: Samantha Dkues MA on 08/22/24 09:56 Dose Route Admin Location Dispensed Lot Number Expiration Date DAVID Foster ufacturer 60 mg intra-articular left glute 1.5 mL [id number] 09/19/26 5610-7860-17 [facility] Coding Level of Care Code Off vis,est,level 3 Diagnoses Acute pharyngitis J02.9 Hives L50.9 Assessment and Plan Assessment and Plan (1) Acute pharyngitis: Stat (more content not included)... Normal [facility] CNOVon 08-19-2024 CNOV Office Visit (AGGENS 3) EVERETT MCCURDY ([id number]) 1990 F Date Time Provider Department 08/19/24 1:45 PM SHARI ROWE AGGENS3 During your visit today, we recorded the following information about you: Pulse Blood pressure Weight Height 74/minute 138/80 91.6 kg 1.854 m Shari Rowe MD 08/19/2024 2:11 PM Signed Shari Rowe MD Surgical Oncology [address], [address] [place] [id number] Name: Everett Mccurdy Age: [age] year old Sex: Everett Mccurdy : 1990 Referring Provider: No ref. provider found Subjective CHIEF COMPLAINT: Postop visit ONCOLOGIC HISTORY: 07/04/2024: Skin biopsy: Melanoma of left posterior thigh 08/06/2024: WLE Anatomic Location: L posterior thigh Breslow Depth: 0.6mm Ulceration: No Mitosis: 0/mm2 Almo Lymph Node Biopsy: No Number of positive SLN: N/A HISTORY OF PRESENT ILLNESS: Ms. Mccurdy is a 33 year old female who presents for postop visit. I personally reviewed Tobacco Allergies Meds Problems Med Hx Surg Hx Fam Hx Objective PHYSICAL EXAM: BP 138/80 Pulse 74 Ht 6' 1 (1.85m) Wt 201 lb 14.4 oz (91.6kg) SpO2 99% LMP 06/10/2024 BMI 26.64 kg/(m2). Physical Exam Constitutional: Appearance: Normal appearance. She is normal weight. HENT: Head: Normocephalic and atraumatic. Mouth/Throat: Mouth: Mucous membranes are moist. Eyes: Extraocular Movements: Extraocular movements intact. Cardiovascular: Rate and Rhythm: Normal rate. Pulmonary: Effort: Pulmonary effort is normal. No respiratory distress. Musculoskeletal: General: Normal range of motion. Cervical back: Normal range of motion. Skin: General: Skin is warm and dry. Comments: Incisions well healing without surrounding erythema or drainage Neurological: General: No focal deficit present. Mental Status: She is alert and oriented to person, place, and time. Mental status is at baseline. Psychiatric: Mood and Affect: Mood normal. Behavior: Behavior normal. Thought Content: Thought content normal. Judgment: Judgment normal. DATA: Pathology Report: FINAL DIAGNOSIS A. Skin, posterior left leg, wide local excision: - Focal residual melanoma in situ adjacent to dermal scar (see comment). - Margins are negative for melanoma in situ. Assessment/Plan Ms. Mccurdy is a 33 year old female s/p WLE on 08/06/2024; recovering well. 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 - vitamin b complex capsule Take 1 capsule by mouth once daily. - vit no.124/iron/folic ( VITAMIN ORAL) Take 1 capsule by mouth once daily. - Fluticasone Furoate 27.5 mcg/actuation nasal spray Use 2 sprays in each nostril once daily. Problem List As Of Date 08/19/2024 Noted Resolved Malignant melanoma of left lower extremity incl*07/22/2024 Level of Service: OFFICE/OUTPATIENT ESTABLISHED MOD MDM 30 MIN [38247] Additional E/M codes: VISIT CPLX INHERENT EANDM ASSOC WITH MED * Encounter Status:Closed by SHARI ROWE on 08/19/24 Normal [facility] US AXILLA ONLY LTon - [facility] US AXILLA ONLY LT * * *Final Report* * * DATE OF EXAM: Aug 12 2024 9:39AM [id number] - [facility] US AXILLA ONLY LT / PROCEDURE REASON: Mass of left axilla * * * * Physician Interpretation * * * * [place] [address] #[id number] - [facility] US AXILLA ONLY LT HISTORY: 33 year-old patient presents for diagnostic evaluation of a palpable abnormality in the left axilla and right breast skin changes. Patient states no personal history of breast cancer. COMPARISON STUDIES: The present examination has been compared to a prior imaging study dated 05/18/2023 (mammogram). ULTRASOUND TECHNIQUE: Targeted ultrasound of the indicated area was performed. Bustos scale images were saved. ULTRASOUND FINDINGS: There is an oval lesion with circumscribed margins measuring 0.9 cm in the high left axilla. Internal echotexture is isoechoic. Color flow imaging demonstrates vascularity is not present. There are no suspicious findings in the imaged area. IMPRESSION: There are no suspicious sonographic findings in the imaged area. 9 mm circumscribed superficial lesion within the high left axillary region corresponds as palpated, relatively isoechoic to subcutaneous fat. Differential considerations include small lipoma or benign lymph node. The patient reports this area as being palpable for approximately 3 years, further suggesting benign process. Return to annual screening mammogram is recommended. Annual mammogram will be due at age 41. BI-RADS Category 2: Benign Interpreting Radiologist: Alcon Dubois M.D. Electronically signed on: 08/12/2024 Staff Air Tactical Officer: SD Transcribe Date/Time: Aug 12 2024 9:28A Dictated by : ALCON DUBOIS MD This examination was interpreted and the report reviewed and electronically signed by: ALCON DUBOIS MD on Aug 12 2024 11:35AM EST [id number] Normal [facility] US Axilla - lefton IMPRESSION: There are no suspicious sonographic findings in the imaged area. 9 mm circumscribed superficial lesion within the high left axillary region corresponds as palpated, relatively isoechoic to subcutaneous fat. Differential considerations include small lipoma or benign lymph node. The patient reports this area as being palpable for approximately 3 years, further suggesting benign process. Return to annual screening mammogram is recommended. Annual mammogram will be due at age 41. BI-RADS Category 2: Benign Interpreting Radiologist: Alcon Dubois M.D. Electronically signed on: 08/12/2024 Staff Air Tactical Officer: SD Transcribe Date/Time: Aug 12 2024 9:28A Dictated by : ALCON DUBOIS MD This examination was interpreted and the report reviewed and electronically signed by: ALCON DUBOIS MD on Aug 12 2024 11:35AM [facility] DIVISION OF RADIOLOGY * * *Final Report* * * DATE OF EXAM: Aug 12 2024 9:39AM [id number] - [facility] US AXILLA ONLY LT / PROCEDURE REASON: Mass of left axilla * * * * Physician Interpretation * * * * [place] [address] #[id number] - [facility] US AXILLA ONLY LT HISTORY: 33 year-old patient presents for diagnostic evaluation of a palpable abnormality in the left axilla and right breast skin changes. Patient states no personal history of breast cancer. COMPARISON STUDIES: The present examination has been compared to a prior imaging study dated 05/18/2023 (mammogram). ULTRASOUND TECHNIQUE: Targeted ultrasound of the indicated area was performed. Bustos scale images were saved. ULTRASOUND FINDINGS: There is an oval lesion with circumscribed margins measuring 0.9 cm in the high left axilla. Internal echotexture is isoechoic. Color flow imaging demonstrates vascularity is not present. There are no suspicious findings in the imaged area. DIVISION OF RADIOLOGY Provider, [facility] - 08/12/2024 * * *Final Report* * * DATE OF EXAM: Aug 12 2024 9:39AM [id number] - [facility] US AXILLA ONLY LT / PROCEDURE REASON: Mass of left axilla * * * * Physician Interpretation * * * * [facility] [address] [place] [address] #[id number] - [facility] US AXILLA ONLY LT HISTORY: 33 year-old patient presents for diagnostic evaluation of a palpable abnormality in the left axilla and right breast skin changes. Patient states no personal history of breast cancer. COMPARISON STUDIES: The present examination has been compared to a prior imaging study dated 05/18/2023 (mammogram). ULTRASOUND TECHNIQUE: Targeted ultrasound of the indicated area was performed. Bustos scale images were saved. ULTRASOUND FINDINGS: There is an oval lesion with circumscribed margins measuring 0.9 cm in the high left axilla. Internal echotexture is isoechoic. Color flow imaging demonstrates vascularity is not present. There are no suspicious findings in the imaged area. IMPRESSION IMPRESSION: There are no suspicious sonographic findings in the imaged area. 9 mm circumscribed superficial lesion within the high left axillary region corresponds as palpated, relatively isoechoic to subcutaneous fat. Differential considerations include small lipoma or benign lymph node. The patient reports this area as being palpable for approximately 3 years, further suggesting benign process. Return to annual screening mammogram is recommended. Annual mammogram will be due at age 41. BI-RADS Category 2: Benign Interpreting Radiologist: Alcon Dubois M.D. Electronically signed on: 08/12/2024 Staff Air Tactical Officer: SD Transcribe Date/Time: Aug 12 2024 9:28A Dictated by : ALCON DUBOIS MD This examination was interpreted and the report reviewed and electronically signed by: ALCON DUBOIS MD on Aug 12 2024 11:35AM EST [facility] Radiology Study observation (narrative) [facility] US Axilla - leftOrdered By: [facility] Provider on 08-12-2024 [facility] HISTORY PHYSICALon HISTORY PHYSICAL HNO ID: [id number] Author: HSARI ROWE MD Service: General Surgery Author Type: Physician Type: H&P Filed: 08/06/2024 09:00 Note Text: SURGICAL ONCOLOGY INITIAL CONSULT NOTE Name: Everett Mccurdy Age: [age] year old Sex: Everett Mccurdy : 1990 PRIMARY CARE PHYSICIAN: No primary care provider on file. Subjective Ms. Mccurdy is a 33 year old female who presents for wide excision of left lower extremity melanoma. Melanoma 0.6mm thick, nonulcerated. JO-ANN percentage of SLNB positivity was 8%. [place] class 1A with GEP score 0.12. She initially elected to do a SLNB but after [place] testing returned we had a further discussion and she would like to proceed with WLE alone. FUNCTIONAL STATUS: Independent PAST MEDICAL HISTORY Diagnosis Date Malignant melanoma (HCC) 2024 left posterior thigh PAST SURGICAL HISTORY Procedure Laterality Date PAST SURGICAL HISTORY OF 2024 skin lesion biopsy - left posterior thigh SINUS SURGERY HX x2, 2012 AND 2013 FAMILY HISTORY Problem Relation Age of Onset Esophageal Cancer Father Social History Tobacco Use Smoking status: Never Smokeless tobacco: Never Substance Use Topics Alcohol use: Not Currently Drug use: Not Currently sertraline (ZOLOFT) 100 mg tablet, Take 100 mg by mouth once daily., Disp: , Rfl: , 08/05/2024 vitamin b complex capsule, Take 1 capsule by mouth once daily., Disp: , Rfl: , 08/05/2024 vit no.124/iron/folic ( VITAMIN ORAL), Take 1 capsule by mouth once daily., Disp: , Rfl: , 08/05/2024 Fluticasone Furoate 27.5 mcg/actuation nasal spray, Use 2 sprays in each nostril once daily., Disp: , Rfl: , 08/05/2024 Current Facility-Administered Medications Medication Dose Route Frequency lidocaine (PF) 10 mg/mL (1 %) 1-2 mg injection (XYLOCAINE) 0.1-0.2 mL INTRADERMAL PRN NaCl 0.9% iv flush bag 20 mL INTRAVENOUS PRN Allergies As of Date: 07/22/2024 (No Known Allergies) Fully Assessed 07/22/2024 COMPLETE REVIEW OF SYSTEMS: ROS Objective PHYSICAL EXAM: Physical Exam Performed: BP 122/72 Pulse 68 Temp (Src) 97.3 (Temporal) Resp 18 SpO2 98% LMP 06/10/2024 O2 Therapy: Room Air Physical Exam Constitutional: General: She is not in acute distress. Appearance: Normal appearance. HENT: Head: Normocephalic and atraumatic. Mouth/Throat: Mouth: Mucous membranes are moist. Eyes: Extraocular Movements: Extraocular movements intact. Cardiovascular: Rate and Rhythm: Normal rate. Pulmonary: Effort: Pulmonary effort is normal. No respiratory distress. Breath sounds: No stridor. Abdominal: General: Abdomen is flat. There is no distension. Palpations: Abdomen is soft. Tenderness: There is no abdominal tenderness. Musculoskeletal: General: Normal range of motion. Cervical back: Normal range of motion. Skin: General: Skin is warm and dry. Coloration: Skin is not jaundiced. Findings: No erythema or rash. Comments: Biopsy site without residual pigmentation Neurological: General: No focal deficit present. Mental Status: She is alert and oriented to person, place, and time. Mental status is at baseline. Psychiatric: Mood and Affect: Mood normal. Behavior: Behavior normal. Thought Content: Thought content normal. Judgment: Judgment normal. Impression/Recommendati ons Ms. Everett Mccurdy is a 33 year old female with left lower extremity melanoma -RADHA Rowe MD Surgical Oncology 08/06/24 0852 Normal [facility] OPERATIVE NOon 08-06-2024 OPERATIVE NO HNO ID: [id number] Author: SHARI ROWE MD Service: General Surgery Author Type: Physician Type: Operative Report Filed: 08/06/2024 10:20 Note Text: OPERATIVE/PROCEDURE REPORT LOG ID: [id number] Surgery/Procedure Date: 08/06/2024 Incision/Procedure Start Time: 9:21 AM Incision Close/Procedure End Time: 9:50 AM Surgeon(s)/Proceduralis t(s) and C Developer(s): Surgeons and Role: * Shari Rowe MD - Primary * Iggy Wills MD - Resident - Assisting No Additional Staff Procedure(s): Wide local excision of melanoma of left posterior thigh Anesthesia: Local Indications for Surgery: Ms. Everett Mccurdy is a 33 year old female with a history of melanoma on left posterior thigh Findings: Biopsy site without pigmentation. Procedure Details: The patient was brought to the operating room after a preoperative huddle was performed, confirming the correct patient, procedure, and site which had been marked previously. Local Sedation anesthesia was induced. The patient was positioned prone. Antibiotics were admininstered within one hour of incision. Surgical timeout was performed prior to making incision to confirm correct patient, procedure, and site with all members of the team in agreement. The patient was then prepped and draped in usual sterile fashion. A 1 cm circumferential margin was marked around the primary lesion. This created a 3.5 cm diameter excision. The excision was made elliptical with the long axis of closure in the transverse axis of the posterior thigh. The incision was made sharply and carried down to the level of the fascia using electrocautery. The specimen was oriented, marked, and passed off to Pathology. The total length of the incision was 6 cm. Cutaneous flaps were created by undermining the subcutaneous tissue off of the deep fascia for 1 cm. Once this was completed, the incision was able to be closed with acceptable amount of tension due to the mobility of the flaps. The incision was closed with a combination of various sized vicryl sutures in multiple layers. Skin glue was applied. At the completion of the case, sponge, lap, and instrument counts were correct x2. The patient tolerated the procedure well and taken to the PACU in stable condition. Commission on Cancer - Standard 5.5: Wide Local Excision for Primary Cutaneous Melanoma Wide Local Excision for Primary Cutaneous Melanoma - Excision 1 (Upper Leg - Left) Operation performed with curative intent Yes Original Breslow thickness of the lesion 0.6 mm (to the tenth of a millimeter) Clinical margin width (measured from the edge of the lesion or the prior excision scar) 1 cm Depth of excision Full-thickness skin/subcutaneous tissue down to fascia (melanoma) Pre-Op/Pre-Procedure Diagnosis: Melanoma of left posterior thigh Post-Op/Post-Procedure Diagnosis: Same Estimated Blood Loss: 5 mls Specimens: ID Type Source Tests Collected by Time Destination A : Posterior Left Leg Wide Local Excision. Short stitch superior. Long stitch left lateral. Tissue Skin, Wide Excision SURGICAL PATHOLOGY Shari Rowe MD 08/06/2024 9:32 AM Implantable Devices: None Drains: None Complications: None I/primary surgeon/proceduralist performed the procedure with assistance. Shari Rowe MD Surgical Oncology Normal [facility] Pathology biopsy report Jaison (Tiss)on 08-06-2024 AP DISCLAIMER Normal [facility] Comment on above: Order Comment: Speci men Type: TISSUE SPECIMEN Ordering Facility: [facility] Address: [address] [place] [address] Result Comment: Nery deras Developed Test (LDT) Disclaimer: Performance characteristics of immunohistochemical, immunofluorescent, and chromogenic in-situ hybridization tests have been determined by the performing laboratory within [facility]'s Og Marcelino Pathology and Laboratory Medicine Department ([facility], [facility], [facility], [facility], [facility], [facility], or [facility]) in a manner consistent with CLIA requirements. One or more of these tests may not have been cleared or approved by the FDA. [facility] is regulated under CLIA as qualified to perform high-complexity testing. These tests are used for clinical purposes. These should not be regarded as investigational or for research. Positive and negative controls stain appropriately. Performed By: #### 6 6121-5 #### [facility] CLIA [id number] [address] [place] [address] CASE REPORT Normal [facility] Comment on above: Order Comment: Specbambi hills Type: TISSUE SPECIMEN Ordering Facility: [facility] Address: [address] [place] [address] Result Comment: Surg ical Pathology Report Case: [id number] Authorizing Provider: Shari Rowe MD Collected: 08/06/2024 09:32 AM Ordering Location: [facility] Received: 08/06/2024 02:25 PM Pathologist: Wade Bautista MD Specimen: Skin, Wide Excision, Posterior Left Leg Wide Local Excision. Short stitch superior. Long stitch left lateral. Performed By: #### 6 6121-5 #### [facility] CLIA [id number] [address] [place] [address] [place] CLINICAL HISTORY Normal [facility] Comment on above: Order Comment: Zehra hills Type: TISSUE SPECIMEN Ordering Facility: [facility] Address: [address] [place] [address] Result Comment: Pre- op diagnosis: Malignant melanoma of leg, left (HCC) [C43.72] Performed By: #### 6 6121-5 #### [facility] CLIA [id number] [address] DIAGNOSIS COMMENT Multiple additional deeper H AND E stained sections were examined. Normal [facility] Comment on above: Order Comment: Speci men Type: TISSUE SPECIMEN Ordering Facility: [facility] Address: [address] [place] [address] Performed By: #### 6 6121-5 #### [facility] CLIA [id number] [address] [place] [address] FINAL DIAGNOSIS Normal [facility] Comment on above: Order Comment: Speci men Type: TISSUE SPECIMEN Ordering Facility: [facility] Address: [address] [place] [address] Result Comment: Mirella villela, posterior left leg, wide local excision: - Focal residual melanoma in situ adjacent to dermal scar (see comment). - Margins are negative for melanoma in situ. at 0849 EDT Performed By: #### 6 6121-5 #### [facility] CLIA [id number] [address] [place] [address] FINAL PERFORMING LAB Normal [facility] Comment on above: Order Comment: Speci men Type: TISSUE SPECIMEN Ordering Facility: [facility] Address: [address] [place] [address] Result Comment: Diag nostic interpretation performed at: [facility], [address] [place] [address] CLIA# [id number] [place] Operator: Jesus Loja MD Performed By: #### 6 6121-5 #### [facility] CLIA [id number] [address] [place] [address] GROSS DESCRIPTION Normal [facility] Comment on above: Order Comment: Speci men Type: TISSUE SPECIMEN Ordering Facility: [facility] Address: [address] [place] [address] Result Comment: Alia. Samantha villela, Wide Excision Received in formalin labeled as posterior left leg wide local excision is an oriented, circular segment of lightly pigmented skin with underlying subcutaneous tissue measuring 3.5 x 2.4 x 2.4 cm. The specimen is oriented with a short stitch at superior and long stitch at left lateral the wrinkled norton hairbearing skin is remarkable for a centrally located pink-norton, ulcerative lesion measuring 0.5 x 0.5 cm. The lesion is located 0.7 cm from inferior, 1 cm from superior, 1.5 cm from left lateral, and 1.7 cm from right lateral. The specimen is inked as follows: Superior blue, inferior orange, and deep margin black. The specimen is sectioned to reveal the lesion grossly extends 0.3 cm below the skin surface, located 3 cm from the closest deep margin. The remaining cut surfaces are predominantly fatty. Medical Psychotherapist sections are submitted, sequentially from the left lateral to right lateral, as follows: A1 account service representative perpendicular sections of left lateral tip; A2 entire right lateral tip, perpendicular sections; A3 section adjacent to lesion; A4-A5 full-thickness section of lesion bisected; A6-A7 full-thickness section of lesion with deepest possible extension, bisected; A8 section adjacent to lesion. Gross examination performed at [facility], [address] [place] [address] RSA August 07, 2024 12:54 PM Performed By: #### 6 6121-5 #### [facility] CLIA [id number] [address] [place] [address] [place] Optical Laboratory Technician Office Visit Reporton 07-24-2024 Optical Laboratory Technician Office Visit Report [facility] [address], [address] [place] [address] OFFICE VISIT Date of Service: 07/24/24 MR#: [id number] Acct: [id number] Name: EVERETT MCCURDY Rep #: [id number] : 1990 Provider: Dr. Nikki lamas MD Age/Sex: 33/F Location: [facility] Status: Signed Intake Vital Signs 06/19/24 10:42 07/24/24 07:59 07/24/24 08:00 Height 6 ft 1 in 6 ft 1 in 6 ft 1 in Weight: 203 lb 6 oz 199 lb BMI 26.8 26.2 BP 123/82 H 133/87 H Intake Visit Reasons: fu bleeding, HCG levels *copay $30 Clinical Physician Assistant Required: No Is patient in pain?: No Allergies No Known Allergies Allergy (Verified 07/24/24 07:58) Medications ???Medication ???Instructions ???Recorded ???Confirmed ???Type vitamin #56-iron 35 mg 1 cap PO DAILY 09/07/21 07/24/24 History and 5 mg-folic acid 1 mg-dha capsule sertraline 100 mg tablet 100 mg PO DAILY anxiety #30 tabs 0 07/16/24 07/24/24 Rx B-complex with vitamin C 1 tab PO QDAY 07/24/24 07/24/24 Hi story Post menopausal: No Patient : No : No 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 current occupational exposures/hazards: Yes (formaldehyde) pets and animals: Yes (not managing litter box) pets and animals: cat(s) leisure activities: exercise history of recent travel: No sexually active: Yes Smoking Status: Former smoker quit date: 10/22/13 how long ago did patient quit smokin years second hand exposure: No alcohol intake: former details: socially rare substance use type: does not use well-balanced diet: daily or most days caffeine: No eating out: rarely or never during the past year weight has: remained stable what type of physical activity do you participate in: aerobics frequency: 3-4 times per week joey/caodaism: None seatbelt use: always do you feel safe at home: Yes additional social history: BF Eric HPI fu bleeding, HCG levels *copay $30 Details: EVERETT MCCURDY is a 33 year old who presents for follow up miscarriage. she has had heavy bleeding and crmaping, been healthy other than recent melanoma diagnosis. she has had normal prolactin levels. she had her hcg levels drop to 21. no fevers n obowel ocmplaints History 2 Elective abortions Hx Para 1 Spontaneous abortions 1 Hx # Term Pregnancies Ectopic pregnancies Hx # Pregnancies Multiple births # of living children 1 Past Pregnancies Del. Date Name GA/Weeks Outcome Route Bth Weight Infant Gen Labor Lgth Anesthesia Del Locatn Provider FOB 03/17/22 Umm 37 live - full term vacuum 5#12 Female epidural [facility] Madhav Reyes Delivery Date: 03/17/22 Last Updated by: Halima Coyle see problem list for complications, and IOL preeclampsia 37 girl Umm SM ROS Const Constitutional: Denies fatigue, fever(s), headache(s), increased appetite, poor appetite, weight gain or weight loss GI GI: Reports as per HPI; Denies abdominal pain, constipation, nausea or vomiting : Reports as per HPI; Denies difficulty voiding, dysuria, hematuria, pelvic pain, urinary frequency, urinary incontinence, urinary hesitancy, urinary urgency, vaginal discharge, vaginal dryness, vaginal odor, vaginal pruritus or other Exam Const General: cooperative, healthy appearing, comfortable, no acute distress and well developed Orientation: alert HENMT Head: normal to inspection and normocephalic Ears: hearing grossly normal bilaterally and external ears normal Nose: external nose normal and nares normal Face and sinus: normal facial exam Neck Neck: normal visual inspection, no lymphadenopathy and trachea midline Thyroid: thyroid normal Resp Effort Inspection: normal respiratory effort Musc Other: gross motor intact no deficits, full bilateral strength Skin General: no rashes or lesions noted Neuro Motor: muscle tone normal throughout Coding Level of Care Code Off vis,est,level 3 Diagnoses Complete O03.9 Assessment and Plan Assessment and Plan (1) Complete : Statu (more content not included)... Normal [facility] 07-23-2024 [facility] Telephone (AGGENS3) EVERETT MCCURDY ([id number]) 1990 F Date Time Provider Department 07/23/24 SHARI ROWE AGGENS3 During your visit today, we recorded the following information about you: Jose Martin Lepe MA 07/23/2024 10:45 AM Signed Went over surgery information with patient by phone. Pt understood where to check in and the prep for surgery, date and time. cmay Allergies As of Date: 07/23/2024 (No Known Allergies) Date Reviewed: 07/22/2024 Reviewed by: Shari Rowe MD - Fully Assessed Reason for Visit: Appointment [186] Prescriptions as of 07/23/2024 - sertraline (ZOLOFT) 100 mg tablet Take 100 mg by mouth once daily. - vitamin b complex capsule Take 1 capsule by mouth once daily. - vit no.124/iron/folic ( VITAMIN ORAL) Take 1 capsule by mouth once daily. - Fluticasone Furoate 27.5 mcg/actuation nasal spray Use 2 sprays in each nostril once daily. Problem List As Of Date 07/23/2024 Noted Resolved Malignant melanoma of left lower extremity incl*07/22/2024 Encounter Status:Closed by JOSE MARTIN LEPE on 07/23/24 [facility] Serum human chorionic gonado tropin detection for pregnancyOrdered By: Nikki Monroy on 07-23-2024 HCG ( test) Ql 21 mIU/mL High <9 [facility] Comment on above: Gestational Age0.2-1 Week: 5-50 mIU/mL1-2 Weeks: 50-500 mIU/mL2-3 Weeks: 100-5000 mIU/mL3-4 Weeks: 500-10,000 mIU/mL4-5 Weeks:1000-50,000 mIU/mL5-6 Weeks: 10,000-100,000 mIU/mL6-8 Weeks: 15,000-200,000 mIU/mL2-3 Months:10,000-100,000 mIU/mL hCG Titer Quant., Serumon HCG QUANT. 21 mIU/mL High <9 non-preg [facility] Comment on above: Order Comment: 48H r epeat Result Comment: Gest ational Age 0.2-1 Week: 5-50 mIU/mL 1-2 Weeks: 50-500 mIU/mL 2-3 Weeks: 100-5000 mIU/mL 3-4 Weeks: 500-10,000 mIU/mL 4-5 Weeks:1000-50,000 mIU/mL 5-6 Weeks: 10,000-100,000 mIU/mL 6-8 Weeks: 15,000-200,000 mIU/mL 2-3 Months:10,000-100,000 mIU/mL Performed By: #### L 700.8000 #### [facility] [address] [place], [address] CNOVon 07-22-2024 CNOV Office Visit (AGGENS 3) EVERETT MCCURDY ([id number]) 1990 F Date Time Provider Department 07/22/24 10:00 AM SHARI ROWE AGGENS3 During your visit today, we recorded the following information about you: Blood pressure Weight Height 122/80 90.7 kg 1.854 m Shari Rowe MD 07/22/2024 11:00 AM Signed Shari Rowe MD Surgical Oncology [address] [place] [address], [place] [address] Name: Everett Mccurdy Age: [age] year old Sex: Everett Mccurdy : 1990 Referring Provider: Sage Dimas PA-C Subjective CHIEF COMPLAINT: Melanoma ONCOLOGIC HISTORY: 07/04/2024: Melanoma Anatomic Location: L posterior thigh Breslow Depth: 0.6mm Ulceration: No Mitosis: 0/mm2 HISTORY OF PRESENT ILLNESS: Ms. Mccurdy is a 33 year old female who presents for initial evaluation for melanoma. Is currently 6w but experiencing bleeding today. New Skin Lesion: Yes Changing size/shape: No Bleeding: No Other concerning lesions/nodules: Yes Left axillary subcutaneous mass, slowly growing. Previously examined with US and Mammo but no definitive diagnosis Prior history of melanoma: No History of sunburns:Yes History of tanning bed use: Yes Family history of Melanoma: No I personally reviewed Tobacco Allergies Meds Problems Med Hx Surg Hx Fam Hx Objective PHYSICAL EXAM: BP 122/80 Ht 6' 1 (1.85m) Wt 200 lb (90.7kg) BMI 26.39 kg/(m2). Physical Exam Constitutional: General: She is not in acute distress. Appearance: Normal appearance. HENT: Head: Normocephalic and atraumatic. Mouth/Throat: Mouth: Mucous membranes are moist. Eyes: Extraocular Movements: Extraocular movements intact. Cardiovascular: Rate and Rhythm: Normal rate. Pulmonary: Effort: Pulmonary effort is normal. No respiratory distress. Abdominal: General: Abdomen is flat. Palpations: Abdomen is soft. Musculoskeletal: General: Normal range of motion. Cervical back: Normal range of motion. Lymphadenopathy: Cervical: No cervical adenopathy. Upper Body: Right upper body: No supraclavicular or axillary adenopathy. Left upper body: No supraclavicular or axillary adenopathy. Lower Body: No right inguinal adenopathy. No left inguinal adenopathy. Comments: Left axillary soft tissue subcutaneous nodule in upper arm/axillary junction Skin: General: Skin is warm and dry. Comments: Biopsy site without residual pigmentation Neurological: General: No focal deficit present. Mental Status: She is alert and oriented to person, place, and time. Mental status is at baseline. Psychiatric: Mood and Affect: Mood normal. Behavior: Behavior normal. Thought Content: Thought content normal. Judgment: Judgment normal. DATA: Pathology Report: Left Proximal Posterior Thigh: Melanoma Histologic type: superficial spreading Maximum Tumor thickness: 0.6mm Ulceration: Not identified Margins: positive Peripheral: involved by melanoma in situ Deeps: Uninvolved Mitotic Index: 0/mm2 Microscopic satellites: not identified Lymphovascular invasion: not identified Perineural invasion: not identified Regression: not identified Pathologic stage: pT1a Assessment/Plan Ms. Mccurdy is a 33 year old female with melanoma of left thigh. -US left axilla to evaluate soft tissue mass -Planning to be evaluated by OB today Surgical Planning: WLE: Yes SLNB: No - Melanoma [facility] risk calculator: 8% Adjacent tissue rearrangement, possible skin graft: No Plastics to close: No Cardiac History: no On ASA or Anticoagulants: no Pacemaker/defibrillator /implanted device: no Cancer Staging Malignant melanoma of left lower extremity including hip (HCC) Staging form: Melanoma of the Skin, AJCC 8th Edition - Clinical stage from 07/22/2024: Stage IA (cT1a, cN0, cM0) - Signed by Shari Rowe MD on 07/22/2024 Shari Rowe MD 07/22/2024 1059 Referring Provider: SAGE DIMAS [[id number]] Allergies As of Date: 07/22/2024 (No Known Allergies) Date Reviewed: 07/22/2024 Reviewed by: Shari Rowe MD - Fully Assessed Reason for Visit: New Patient [172] Cmt: Melanoma, left thigh Primary Visit Diagnosis:Mass of left axilla [R22.32] Other Visit Diagnosis:Malignant melanoma of left lower extremity including hip (HCC) [C43.72] Order(s): AXILLA ONLY LEFT [[id number]] Order #: [id number] FUTURE Prescriptions as of 07/22/2024 - sertraline (ZOLOFT) 100 mg tablet Take 100 mg by mouth once daily. - vitamin b complex capsule Take 1 capsule by mouth once daily. - vit no.124/iron/folic ( VITAMIN ORAL) Take 1 capsule by mouth once daily. - Fluticasone Furoate 27.5 mcg/actuation nasal spray Use 2 sprays in each nostril once daily. Problem List As Of Date 07/22/2024 Noted Resolved Malignant (more content not included)... Normal [facility] HISTORY PHYSICALon HISTORY PHYSICAL HNO ID: [id number] Author: SHARI ROWE MD Service: ? Author Type: Physician Type: H&P Filed: 07/22/2024 11:00 Note Text: Shari Rowe MD Surgical Oncology [address] [facility], [address] [place] [id number] Name: Everett Mccurdy Age: [age] year old Sex: Everett Mccurdy : 1990 Referring Provider: Sage Dimas PA-C Subjective CHIEF COMPLAINT: Melanoma ONCOLOGIC HISTORY: 07/04/2024: Melanoma Anatomic Location: L posterior thigh Breslow Depth: 0.6mm Ulceration: No Mitosis: 0/mm2 HISTORY OF PRESENT ILLNESS: Ms. Mccurdy is a 33 year old female who presents for initial evaluation for melanoma. Is currently 6w but experiencing bleeding today. New Skin Lesion: Yes Changing size/shape: No Bleeding: No Other concerning lesions/nodules: Yes Left axillary subcutaneous mass, slowly growing. Previously examined with US and Mammo but no definitive diagnosis Prior history of melanoma: No History of sunburns:Yes History of tanning bed use: Yes Family history of Melanoma: No I personally reviewed Tobacco Allergies Meds Problems Med Hx Surg Hx Fam Hx Objective PHYSICAL EXAM: BP 122/80 Ht 6' 1 (1.85m) Wt 200 lb (90.7kg) BMI 26.39 kg/(m2). Physical Exam Constitutional: General: She is not in acute distress. Appearance: Normal appearance. HENT: Head: Normocephalic and atraumatic. Mouth/Throat: Mouth: Mucous membranes are moist. Eyes: Extraocular Movements: Extraocular movements intact. Cardiovascular: Rate and Rhythm: Normal rate. Pulmonary: Effort: Pulmonary effort is normal. No respiratory distress. Abdominal: General: Abdomen is flat. Palpations: Abdomen is soft. Musculoskeletal: General: Normal range of motion. Cervical back: Normal range of motion. Lymphadenopathy: Cervical: No cervical adenopathy. Upper Body: Right upper body: No supraclavicular or axillary adenopathy. Left upper body: No supraclavicular or axillary adenopathy. Lower Body: No right inguinal adenopathy. No left inguinal adenopathy. Comments: Left axillary soft tissue subcutaneous nodule in upper arm/axillary junction Skin: General: Skin is warm and dry. Comments: Biopsy site without residual pigmentation Neurological: General: No focal deficit present. Mental Status: She is alert and oriented to person, place, and time. Mental status is at baseline. Psychiatric: Mood and Affect: Mood normal. Behavior: Behavior normal. Thought Content: Thought content normal. Judgment: Judgment normal. DATA: Pathology Report: Left Proximal Posterior Thigh: Melanoma Histologic type: superficial spreading Maximum Tumor thickness: 0.6mm Ulceration: Not identified Margins: positive Peripheral: involved by melanoma in situ Deeps: Uninvolved Mitotic Index: 0/mm2 Microscopic satellites: not identified Lymphovascular invasion: not identified Perineural invasion: not identified Regression: not identified Pathologic stage: pT1a Assessment/Plan Ms. Mccurdy is a 33 year old female with melanoma of left thigh. -US left axilla to evaluate soft tissue mass -Planning to be evaluated by OB today Surgical Planning: WLE: Yes SLNB: No - Melanoma [facility] risk calculator: 8% Adjacent tissue rearrangement, possible skin graft: No Plastics to close: No Cardiac History: no On ASA or Anticoagulants: no Pacemaker/defibrillator /implanted device: no Cancer Staging Malignant melanoma of left lower extremity including hip (HCC) Staging form: Melanoma of the Skin, AJCC 8th Edition - Clinical stage from 07/22/2024: Stage IA (cT1a, cN0, cM0) - Signed by Shari Rowe MD on 07/22/2024 Shari Rowe MD 07/22/2024 1059 Normal [facility] Serum human chorionic gonado tropin detection for pregnancyOrdered By: Nikki Monroy on 07-21-2024 HCG ( test) Ql 92 mIU/mL High <9 [facility] Comment on above: Gestational Age0.2-1 Week: 5-50 mIU/mL1-2 Weeks: 50-500 mIU/mL2-3 Weeks: 100-5000 mIU/mL3-4 Weeks: 500-10,000 mIU/mL4-5 Weeks:1000-50,000 mIU/mL5-6 Weeks: 10,000-100,000 mIU/mL6-8 Weeks: 15,000-200,000 mIU/mL2-3 Months:10,000-100,000 mIU/mL hCG Titer Quant., Serumon HCG QUANT. 92 mIU/mL High <9 non-preg [facility] Comment on above: Result Comment: Gest ational Age 0.2-1 Week: 5-50 mIU/mL 1-2 Weeks: 50-500 mIU/mL 2-3 Weeks: 100-5000 mIU/mL 3-4 Weeks: 500-10,000 mIU/mL 4-5 Weeks:1000-50,000 mIU/mL 5-6 Weeks: 10,000-100,000 mIU/mL 6-8 Weeks: 15,000-200,000 mIU/mL 2-3 Months:10,000-100,000 mIU/mL Performed By: #### L 700.8000 #### [facility] [address] [place], [address] Optical Laboratory Technician Office Visit Reporton 06-19-2024 Optical Laboratory Technician Office Visit Report [facility] [address], [address] [place] [address] OFFICE VISIT Date of Service: 06/19/24 MR#: [id number] Acct: [id number] Name: EVERETT MCCURDY Rep #: [id number] : 1990 Provider: ELIJAH Tenorio Age/Sex: 33/F Location: [facility] [place] Status: Signed Intake Vital Signs 08/17/23 16:00 03/31/24 08:57 04/30/24 11:03 06/19/24 10:42 Height 6 ft 1 in 6 ft 1 in 6 ft 1 in 6 ft 1 in Weight: 203 lb 6 oz BMI 26.8 BP 123/82 H Intake Visit Reasons: 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) Clinical Physician Assistant Required: No Is patient in pain?: No Allergies No Known Allergies Allergy (Verified 06/19/24 10:40) Medications ???Medication ???Instructions ???Recorded ???Confirmed ???Type vitamin #56-iron 35 mg 1 cap PO DAILY 09/07/21 06/19/24 History and 5 mg-folic acid 1 mg-dha capsule fluticasone propionate 50 1 spray intranasal DAILY 08/17/23 06/19/24 History mcg/actuation nasal spray,suspension (Children's Flonase Allergy Relief) budesonide 1 mg/2 mL suspension 0.5 mg inhalation BID 03/31/2403/15 History for nebulization ipratropium bromide 21 mcg (0.03 2 spray intranasal BID-TID PRN 05/1306/19/24 Rx %) nasal spray postnasal drainage #30 mL sertraline 100 mg tablet 100 mg PO DAILY anxiety #30 tabs 0 06/05/24 06/19/24 Rx Post menopausal: No Patient : [facility] Medical History Prolactinoma, benign Pneumonia Vaginal delivery Mild to moderate pre-eclampsia complicating puerperium Vacuum-assisted vaginal delivery Anxiety Surgical History Hx of sinus surgery Family History Other Breast cancer Cancer Depression Hormone imbalance Ovarian cancer Suicide attempt Social History adopted: No household members: significant other housing: house number of children: 1 current occupational status: employed 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 current occupational exposures/hazards: Yes (formaldehyde) pets and animals: Yes (not managing litter box) pets and animals: cat(s) leisure activities: exercise history of recent travel: No sexually active: Yes Smoking Status: Former smoker quit date: 10/22/13 how long ago did patient quit smokin years second hand exposure: No alcohol intake: former details: socially rare substance use type: does not use well-balanced diet: daily or most days caffeine: No eating out: rarely or never during the past year weight has: remained stable what type of physical activity do you participate in: aerobics frequency: 3-4 times per week joey/caodaism: None seatbelt use: always do you feel safe at home: Yes additional social history: Eric History 1 Elective abortions Hx Para 0 Spontaneous abortions Hx # Term Pregnancies Ectopic pregnancies Hx # Pregnancies Multiple births # of living children 1 Past Pregnancies Del. Date Name GA/Weeks Outcome Route Bth Weight [facility]22 Umm 37 live - full term vacuum 5#12 Female epidural [facility] Delivery Date: 03/17/22 Last Updated by: Halima Coyle see problem list for complications, and IOL preeclampsia 37 girl Umm SM HPI Encounter for routine gynecological examination Details: EVERETT MCCURDY is a 33 year old who presents for annual exam. She reports no issues or concerns. Last PAP: 2023; normal. hpv neg. History of abnormal PAP: ASCUS 2021; HPV neg. Last mammogram: 2023; normal. History of abnormal mammogram: no. Colon cancer screening: age 46. Other preventative health care screenings: Does not have. Female Reproductive History Last Menstrual Period: 06/10/24 Cycle Length: 21-35 Bleeding Duration: 7 Questions: metorrhagia: No, sexually active: Yes, dyspareunia: No and PCB: No ROS Const Constitutional: Denies chills, fatigue, fever(s), headache(s) or weight loss Eyes Eyes: Denies change in vision ENT ENT: Denies dizziness Resp Resp: Denies cough GI GI: Denies abdominal pain, constipation or nausea : Denies difficulty voiding, dysuria, hematuria, nipple discharge, pelvic pain, prolapse symptoms, urinary incontinence, vaginal discharge, vaginal dryness, vaginal odor or vaginal pruritus Skin Skin/Breast: Denies alopecia, rash, breast mass, breast pain, breast skin changes or nipple discharge Neuro Neuro: Denies dizziness Psych Psych: Denies anxiety or depression Endo Endo: Denies cold intolerance, excessive sweating or heat intolerance Exam Const General: coop (more content not included)... Normal [facility] Urgent Care Visit Reporton 0 05-22-2024 Urgent Care Visit Report [facility] [address], [address] [place] [address] OFFICE VISIT Date of Service: 05/22/24 MR#: [id number] Acct: [id number] Name: EVERETT MCCURDY Rep #: [id number] : 1990 Provider: ADENIKE Rivero Age/Sex: 33/F Location: [facility] [place] Status: Signed Intake Vital Signs 04/30/24 11:03 05/22/24 11:45 Height 6 ft 1 in BP 118/60 Position Sitting Pulse 85 Temp 99.5 F H Temp Source Oral Pulse Oximetry (%) 97 Oxygen Delivery Method room air Intake Visit Reasons: SORE THROAT, CONGESTION Accompanied by: Self Allergies No Known Allergies Allergy (Verified 05/22/24 11:45) Medications ???Medication ???Instructions ???Recorded ???Confirmed ???Type vitamin #56-iron 35 mg 1 cap PO DAILY 09/07/21 05/22/24 History and 5 mg-folic acid 1 mg-dha capsule fluticasone propionate 50 1 spray intranasal DAILY 08/17/23 05/22/24 History mcg/actuation nasal spray,suspension (Children's Flonase Allergy Relief) budesonide 1 mg/2 mL suspension 0.5 mg inhalation BID 03/31/2405/13 History for nebulization sertraline 100 mg tablet 100 mg PO DAILY anxiety #30 tabs 0 05/08/24 05/22/24 Rx amoxicillin 875 mg-potassium 1 tab PO Q12H 10 days #20 tabs 05/1305/22/24 Rx clavulanate 125 mg tablet ipratropium bromide 21 mcg (0.03 2 spray intranasal BID-TID PRN 05/1305/22/24 Rx %) nasal spray postnasal drainage #30 mL Nurse's Note: Patient has a ST, sinus and chest congestion. Patient states this has been going on for 3 days. Patient states that she was coughing up yellow and orange stuff. 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 current occupational exposures/hazards: Yes (formaldehyde) pets and animals: Yes (not managing litter box) pets and animals: cat(s) leisure activities: exercise history of recent travel: No sexually active: Yes Smoking Status: Former smoker quit date: 10/22/13 how long ago did patient quit smokin years second hand exposure: No alcohol intake: former details: socially rare substance use type: does not use well-balanced diet: daily or most days caffeine: No eating out: rarely or never during the past year weight has: remained stable what type of physical activity do you participate in: aerobics frequency: 3-4 times per week joey/caodaism: None seatbelt use: always do you feel safe at home: Yes additional social history: BF Eric HPI HPI Details: EVERETT KAZ, is a 33 F who presents to the office today for complaint of sinus congestion/pressure and pain. Patient states this has been worsening particular over the past 3 days. She denies fever, chills, sweats. No nausea, vomiting or diarrhea. She does state that her daughter has similar symptoms and has been placed on antibiotic yesterday. No hemoptysis, shortness of breath or difficulty running. No loss of taste or smell. No other associated symptoms or alleviating/aggravating factors. ROS Const Constitutional: No other (6 system ROS completed with pertinent findings in the HPI otherwise normal.) Exam Const General: cooperative and healthy appearing HENMT Head: normal to inspection Ears: hearing grossly normal bilaterally, TM's normal bilaterally and EAC's normal Nose: nasal discharge purulent Face and sinus: sinus tenderness frontal and maxillary Mouth: oral mucosae normal Throat: abnormal tonsil bilaterally erythema and hypertrophy 1+ and postnasal drainage Resp Effort Inspection: normal respiratory effort Auscultation: Bilateral: Clear to Auscultation Cardio Palpation: normal PMI Rate: regular rate Rhythm: regular rhythm Neuro General: patient alert and CN's II-XI intact bilaterally Psych Appearance: grossly normal Mental Status: mental status grossly normal Coding Level of Care Code Off vis,est,level 3 Diagnoses Acute sinusitis J01.90 Assessment and Plan Assessment and Plan (1) Acute sinusitis: Status: Acute Plan: Augmentin and Atrovent as prescribed today. Encouraged to get plenty of rest, drink lots of clear liquids, and use Tyl (more content not included)... Normal [facility] - Chemistry and C hemistry - challengeOrdered By: Susie Miramontes on 04-30-2024 HCG ( test) Ql (U) Negative [facility] Optical Laboratory Technician Office Visit Reporton 04-30-2024 Optical Laboratory Technician Office Visit Report [facility] [address], [address] [place] [address] OFFICE VISIT Date of Service: 04/30/24 MR#: [id number] Acct: [id number] Name: EVERETT MCCURDY Rep #: [id number] : 1990 Provider: ELIJAH parra Age/Sex: 33/F Location: [facility] [place] Status: Signed Intake Vital Signs 02/26/24 08:34 03/31/24 08:57 04/30/24 10:55 04/30/24 11:03 Height 6 ft 1 in 6 ft 1 in 6 ft 1 in 6 ft 1 in Weight: 209 lb 2 oz BMI 27.6 BP 130/82 H Intake Visit Reasons: EMB Chief Complaint: EMB Clinical Physician Assistant Required: No Is patient in pain?: No Allergies No Known Allergies Allergy (Verified 04/30/24 11:08) Medications ???Medication ???Instructions ???Recorded ???Confirmed ???Type vitamin #56-iron 35 mg 1 cap PO DAILY 09/07/21 04/30/24 History and 5 mg-folic acid 1 mg-dha capsule sertraline 100 mg tablet 100 mg PO DAILY anxiety #90 tabs 0 05/07/23 04/30/24 Rx fluticasone propionate 50 1 spray intranasal DAILY 08/17/23 04/30/24 History mcg/actuation nasal spray,suspension (Children's Flonase Allergy Relief) budesonide 1 mg/2 mL suspension 0.5 mg inhalation BID 03/31/2402/12 History for nebulization Is last menstrual period known: Yes Last Menstrual Period: 04/15/24 Post menopausal: No Patient : No : No PFSH 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 current occupational exposures/hazards: Yes (formaldehyde) pets and animals: Yes (not managing litter box) pets and animals: cat(s) leisure activities: exercise history of recent travel: No sexually active: Yes Smoking Status: Former smoker quit date: 10/22/13 how long ago did patient quit smokin years second hand exposure: No alcohol intake: former details: socially rare substance use type: does not use well-balanced diet: daily or most days caffeine: No eating out: rarely or never during the past year weight has: remained stable what type of physical activity do you participate in: aerobics frequency: 3-4 times per week joey/caodaism: None seatbelt use: always do you feel safe at home: Yes additional social history: BF Eric History 1 Elective abortions Hx Para 0 Spontaneous abortions Hx # Term Pregnancies Ectopic pregnancies Hx # Pregnancies Multiple births # of living children 1 Past Pregnancies Del. Date Name GA/Weeks Outcome Route Bth Weight Gen Labor Lgth Anesthesia Del Locatn Provider FOB 03/17/22 Umm 37 live - full term vacuum 5#12 Female epidural [facility] nellie [place] Delivery Date: 03/17/22 Last Updated by: Halima Coyle see problem list for complications, and IOL preeclampsia 38 girl Umm HPI EMB Details: EVERETT MCCURDY is a 33 year old who presents for endometrial biopsy. She has been having heavy and and prolonged menses. She had overall normal US. She is very concerned as her mom had hysterectomy in her 50s for heavy menses and pathology returned as abnormal or precancerous. They are considering a 2nd Female Reproductive History Last Menstrual Period: 04/15/24 Cycle Length: 21-35 Questions: metorrhagia: Yes, sexually active: Yes, dyspareunia: No and PCB: No ROS Const Constitutional: Reports system reviewed and no additional complaints, except as documented Eyes Eyes: Reports system reviewed and no additional complaints, except as documented GI GI: Denies abdominal pain or change in bowel habits : Reports as per HPI Exam Const General: cooperative and no acute distress Orientation: oriented x3 General: bladder normal to palpation External Female Exam: normal external appearance and normal appearance of the urethra Urethra: normal appearance of the urethra Speculum Exam - Vagina: normal appearance of the vagina, normal vaginal discharge, no lesions and nontender Speculum Exam - Cervix: normal appearance of the cervix Bimanual Exam- Vagina Uterus: normal bimanual exam, uterine size normal, bladder normal to palpation, uterine shape nor (more content not included)... Normal [facility] Surgery Specimen Level Beryl 04-30-2024 Surgery Specimen Level IV Patient Age/Sex Location Account Attending Physician EVERETT MCCURDY 33/ LABSPEC [id number] ELIJAH Catalan Specimen: [id number] Received: 04/30/24 Status: BEBETO Phillips Num: [id number] Spec Type: KENYA HALE/C [facility] Dr: ELIJAH Catalan HEADER OPERATION: Endometrial biopsy PRE-OP DIAGNOSIS: Abnormal uterine bleeding TISSUE SUBMITTED: Endometrial lining MICROSCOPIC DIAGNOSIS ENDOMETRIUM, CURETTAGE: * Proliferative endometrium. MICROSCOPIC DESCRIPTION Slides are reviewed. GROSS DESCRIPTION The specimen is received in a container labeled with the patient's name and not further designated. The specimen consists of multiple fragments of norton soft tissue measuring 3 x 2.5 x 0.4 cm. TE2. eh 05/01/24 CPT: 30125 Patient Age/Sex Location Account Attending Physician EVERETT MCCURDY 33/F LABSPEC [id number] ELIJAH Catalan Signed (signature on file) Dr. Brenda Cordon MD 05/08/24 1106 Normal [facility] Comment on above: Performed By: #### P SUIV #### [facility] [address] [place], [place], [id number] PROLACTIN 4465on 04-01-2024 PROLACTIN 33.0 ng/mL Normal 4.8-33.4 [facility] Comment on above: Result Comment: Perf ormed at: - [facility] [address] [id number] Labor Service Representative: Paul Grimaldo PhD, Phone: [phone] Performed By: #### L 3102.5400 #### [facility] [address] [place], [place], [address] Endocrinology Visit Reporton 03-31-2024 Endocrinology Visit Report [facility] [address] [place], [place] [address] OFFICE VISIT Date of Service: 03/31/24 MR#: [id number] Acct: [id number] Name: EVERETT MCCURDY Rep #: [id number] : 1990 Provider: Ugo Reynolds Age/Sex: 33/F Location: [facility] [place] Status: Signed Intake Vital Signs 02/26/24 08:34 03/31/24 08:57 Height 6 ft 1 in 6 ft 1 in Weight: 209 lb 209 lb 2 oz BMI 27.6 27.6 BP 142/91 H 146/88 H Blood Pressure Location Lt brachial Position Sitting Pulse 83 Pulse Source Monitor Pulse Oximetry (%) 98 Oxygen Delivery Method room air Intake Visit Reasons: Pituitary Chief Complaint: Prolactinoma Is patient in pain?: No Allergies No Known Allergies Allergy (Verified 03/31/24 07:49) Medications ???Medication ???Instructions ???Recorded ???Confirmed ???Type vitamin #56-iron 35 mg 1 cap PO DAILY 09/07/21 03/31/24 History and 5 mg-folic acid 1 mg-dha capsule sertraline 100 mg tablet 100 mg PO DAILY anxiety #90 tabs 0 05/07/23 03/31/24 Rx fluticasone propionate 50 1 spray intranasal DAILY 08/17/23 02/26/24 History mcg/actuation nasal spray,suspension (Children's Flonase Allergy Relief) budesonide 1 mg/2 mL suspension 0.5 mg inhalation BID 03/31/2412/13 History for nebulization 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 current occupational exposures/hazards: Yes (formaldehyde) pets and animals: Yes (not managing litter box) pets and animals: cat(s) leisure activities: exercise history of recent travel: No sexually active: Yes Smoking Status: Former smoker quit date: 10/22/13 how long ago did patient quit smokin years second hand exposure: No alcohol intake: former details: socially rare substance use type: does not use well-balanced diet: daily or most days caffeine: No eating out: rarely or never during the past year weight has: remained stable what type of physical activity do you participate in: aerobics frequency: 3-4 times per week joey/caodaism: None seatbelt use: always do you feel safe at home: Yes additional social history: BF Eric HPI HPI Chief Complaint: Prolactinoma Details: EVERETT MCCURDY, is a 33 F who presents to the office today for evaluation and management of prolactinoma. She states her menses stopped after she graduated high school. After about 3 years, she was diagnosed with prolactinoma. She had MRI, but she doesn't know the size. She conceived on cabergoline which was stopped during the . Her daughter Umm is 2 years old. She has not been on cabergoline since her . She would like to get again in about 6-12 months. She is not preventing at this time. She is having menses monthly but they are very heavy. ROS Const Constitutional: No fatigue, weight change or change in appetite Eyes Eyes: No change in vision ENT ENT: No dizziness/vertigo or difficulty swallowing Cardio Cardiology: No chest pain at rest, chest pain with exertion, shortness of breath or palpitations Musc Musculoskeletal: No abnormal gait, joint pain, numbness or tingling Neuro Neurology: No abnormal gait, memory loss, numbness or tingling Psych Psychiatric: No change in appetite, No memory loss and No Thoughts of harming yourself/Others Resp Respiratory: No cough, chest congestion or shortness of breath Gastro GI: No abdominal pain, constipation, diarrhea or difficulty swallowing Genitourinary-Female: Positive for painful periods and heavy periods; No burning urination Skin Skin: No itchy eyes or wounds Endo Endocrine: No fatigue or weight change Aller/Imm Allergy/Immunologic: No itchy eyes Exam Const General: cooperative, healthy appearing, comfortable, no acute distress, well developed and not cushingoid Nutritional Appearance: well nourished Orientation: alert, awake and oriented x3 HENMT Head: normal to inspection Ears: hearing grossly normal bilaterally Nose: external nose normal Mouth: oral mucosae normal Eyes General: appearance lou (more content not included)... Normal [facility] Prolactin [Mass/Vol]Ordered By: Demetris Houston on 03-31-2024 Prolactin 33.0 ng/mL 4.8-33.4 [facility] Comment on above: Performed at: [facility] [address] [id number] Director: Paul Grimaldo PhD, Phone: [phone] Serum or plasma prolactin me asurement (mass/volume)Ordered By: Demetris Houston on 03-31-2024 Prolactin [Mass/Vol] 33.0 ng/mL 4.8-33.4 [facility] Comment on above: Performed at: [facility] [address] [id number] Director: Paul Grimaldo PhD, Phone: [phone] Pelvic w/ Transvaginalon Pelvic w/ Transvaginal [facility] [address] [place] [address] Pelvic w/ Transvaginal MR#: [id number] Acct: [id number] Name: EVERETT MCCURDY Rep #: [id number] : 1990 F 33 From: Tiffanie Bergman MD PCP: Care Physician,No Primary Status: REG CL Study: Pelvic w/ Transvaginal Date of Exam: 03/05/24 Exam# [id number] Ordering Dr: Susie Miramontes AN/SSN 2 4 OPERATOR AN/SSN 2 4 OPERATOR -C [id number] EXAM: US PELVIS TRANSABDOMINAL AND TRANSVAGINAL, COMPLETE CLINICAL INDICATION: menorrhagia TECHNIQUE: Transabdominal and transvaginal pelvic ultrasound was performed with grayscale and color Doppler imaging. Transvaginal imaging was used for better evaluation of the endometrium and adnexa. COMPARISON: February 01, 2023, mentioned multiple ovarian follicles. FINDINGS: UTERUS/CERVIX: Unremarkable 9.8 cm x 4.2 cm x 14.7 cm. Anteverted on the transabdominal exam, mildly retroflexed on transvaginal exam. There is no uterine mass. Normal 1.4 cm echogenic fundal endometrial stripe thickness as measured on transabdominal, 1.1 cm maximum thickness on transvaginal exam. Multiple small nabothian cervical cysts. RIGHT OVARY: Unremarkable 3.3 cm x 1.9 cm x 2.7 cm. Tiny subcentimeter follicles. Non-enlarged, normal echogenicity. Blood flow is present in the right ovary. LEFT OVARY: Unremarkable with the exception of multiple simple follicles, the largest estimated to be 1.4 cm. Overall size 5 cm x 1.5 cm x 2.6 cm. Non-enlarged, normal echogenicity. Blood flow is present in the left ovary. FREE FLUID: Trace cul-de-sac fluid. Trace left adnexal fluid. BLADDER: Unremarkable as visualized. Wall is normal thickness for degree of distention. US/Pelvic w/ Transvaginal IMPRESSION: Trace left adnexal and cul-de-sac fluid. Minimally dominant follicle in the left ovary. Electronically Signed: Tiffanie Bergman MD at 2:21 EST Reading Location ID and State: [facility] / [place] Tel , Service support , CC: ELIJAH Miramontes; No Primary Care Physician Staff Air Tactical Officer: Signed Normal [facility] Absolute neutrophil countOrd ered By: Susie Miramontes on 02-26-2024 Neutrophils (Bld) [#/Vol] 2.7 10*3/uL 2.0-7.7 [facility] Basophil percentageOrdered B y: Susie Miramontes on 02-26-2024 Basophils/100 WBC (Bld) 1.4 % High 0-1 [facility] Direct serum free thyroxine (FT4) measurementOrdered By: Susie Miramontes on 02-26-2024 Free T4 [Mass/Vol] 1.07 ng/dL 0.76-1.46 [facility] Eosinophil percentageOrdered By: Susie Miramontes on 02-26-2024 Eosinophils/100 WBC (Bld) 4.9 % 0-5 [facility] Erythrocyte distribution wid th ratioOrdered By: Susie Miramontes on 02-26-2024 Erythrocyte distribution width (RBC) [Ratio] 12.0 % 11.6-14.6 [facility] Erythrocyte distribution wid th standard deviationOrdered By: Susie Miramontes on 02-26-2024 Erythrocyte distribution width (RBC) [Entitic vol] 39.7 fL 35.1-43.9 [facility] Hematocrit Auto (Bld) [Volum e fraction]Ordered By: Susie Miramontes on 02-26-2024 Hematocrit (Bld) [Volume fraction] 43.3 % 37-47 [facility] Hemoglobin measurementOrdere d By: Susie Miramontes on 02-26-2024 Hemoglobin (Bld) [Mass/Vol] 14.7 g/dL 12.0-15.0 [facility] Immature granulocytes/100 WB C Auto (Bld)Ordered By: Susie Miramontes on 02-26-2024 Immature granulocytes/100 WBC (Bld) 0.200 % 0.0-0.9 [facility] Comment on above: IG% - Immature Granu locytes (promyelocytes, myelocytes and metamyelocytes) > 1% indicates that a LEFT SHIFT is Present. Lymphocytes Auto (Unsp spec) [#/Vol]Ordered By: Susie Miramontes on 02-26-2024 Lymphocytes (Bld) [#/Vol] 2.17 10*3/uL 0.83-4.51 [facility] Lymphocytes/100 WBC Auto (Un sp spec)Ordered By: Susie Miramontes on 02-26-2024 Lymphocytes/100 WBC (Bld) 38.3 % 19-41 [facility] MCV (mean corpuscular volume ) determinationOrdered By: Susiearlen Miramontes on 02-26-2024 MCV (RBC) [Entitic vol] 90.8 fL 81-99 [facility] Mean corpuscular hemoglobin (MCH) determinationOrdered By: Susiearlen Miramontes on 02-26-2024 MCH (RBC) [Entitic mass] 30.8 pg 27.0-32.0 [facility] Mean corpuscular hemoglobin concentration (MCHC) determinationOrdered By: Susiearlen Miramontes on 02-26-2024 MCHC (RBC) [Mass/Vol] 33.9 g/dL 32-36 [facility] Mean platelet volume determi nationOrdered By: Susiearlen Miramontes on 02-26-2024 Platelet mean volume (Bld) [Entitic vol] 11.3 fL 6.2-12.0 [facility] Monocyte percentageOrdered B y: Susie Miramontes on 02-26-2024 Monocytes/100 WBC (Bld) 7.8 % 0-10 [facility] Neutrophil percentageOrdered By: Susiearlen Miramontes on 02-26-2024 Neutrophils/100 WBC (Bld) 47.4 % 47-70 [facility] Nucleated red blood cell per centageOrdered By: [facility] on 02-26-2024 Nucleated RBC/100 WBC (Bld) [Ratio] 0 % 0-5 [facility] Optical Laboratory Technician Office Visit Reporton 02-26-2024 Optical Laboratory Technician Office Visit Report [facility], [address] [place] [address] OFFICE VISIT Date of Service: 02/26/24 MR#: [id number] Acct: [id number] Name: EVERETT MCCURDY Rep #: [id number] : 1990 Provider: ELIJAH parra Age/Sex: 33/F Location: [facility] Status: Signed Intake Vital Signs 08/17/23 16:00 02/26/24 08:34 Height 6 ft 1 in 6 ft 1 in Weight: 217 lb 6 oz 209 lb BMI 28.6 27.6 BP 122/64 H 142/91 H Blood Pressure Location Lt brachial Position Sitting Respiration 15 Pulse 64 Pulse Source NIBP Temp 98.2 F Pulse Oximetry (%) 98 Oxygen Delivery Method room air 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) Clinical Physician Assistant Required: No Is patient in pain?: No Allergies No Known Allergies Allergy (Verified 02/26/24 08:34) Medications ???Medication ???Instructions ???Recorded ???Confirmed ???Type vitamin #56-iron 35 mg 1 cap PO DAILY 09/07/21 02/26/24 History and 5 mg-folic acid 1 mg-dha capsule sertraline 100 mg tablet 100 mg PO DAILY anxiety #90 tabs 05/07/23 02/26/24 Rx fluticasone propionate 50 1 spray intranasal DAILY 08/17/23 02/26/24 History mcg/actuation nasal spray,suspension (Children's Flonase Allergy Relief) Is last menstrual period known: Yes Last Menstrual Period: 02/21/24 Post menopausal: No Patient : No : No Control Method: none PFSH Medical History (Updated 02/26/24 @ 08:59 by Susie Miramontes NP, ELIJAH) Vaginal delivery Mild to moderate pre-eclampsia complicating puerperium Vacuum-assisted vaginal delivery Anxiety Surgical History Hx of sinus surgery Social History adopted: No household members: significant other housing: house number of children: 1 current occupational status: employed 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 current occupational exposures/hazards: Yes (formaldehyde) pets and animals: Yes (not managing litter box) pets and animals: cat(s) leisure activities: exercise history of recent travel: No sexually active: Yes Smoking Status: Former smoker quit date: 10/22/13 how long ago did patient quit smokin years second hand exposure: No alcohol intake: former details: socially rare substance use type: does not use well-balanced diet: daily or most days caffeine: No eating out: rarely or never during the past year weight has: remained stable what type of physical activity do you participate in: aerobics frequency: 3-4 times per week joey/caodaism: None seatbelt use: always do you feel safe at home: Yes additional social history: 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 Changing tampon hysterectomy in her 30s due precancerous cells in uterus. She is using condoms currently. Has 2 yr old daughter and considering . Female Reproductive History Last Menstrual Period: 02/21/24 History 1 Elective abortions Hx Para 0 Spontaneous abortions Hx # Term Pregnancies Ectopic pregnancies Hx # Pregnancies Multiple births # of living children 1 Past Pregnancies Del. Date Name GA/Weeks Outcome Route Bth Weight Gen Labor Lgth Anesthesia Del Locatn Provider FOB 03/17/22 Umm 37 live - full term vacuum 5#12 Female epidural [facility] nellie Eliana Eric Delivery Date: 03/17/22 Last Updated by: Halima Coyle see problem list for complications, and IOL preeclampsia 37 girl Umm SM ROS Const Constitutional: Reports system reviewed and no additional complaints, except as documented Eyes Eyes: Reports system reviewed and no additional complaints, except as documented GI GI: Denies abdominal pain or change in bowel habits : Reports as per HPI Exam Const General: cooperative and no acute distress Orientation: oriented x3 HENMT Head: normal to inspection and normocephalic Eyes General: appearance normal, both eyes and all related structures Neck Neck: normal visual inspection Resp Effort Inspection: normal respiratory effort Neuro Cognition: normal cognition Speech: speech normal Psych Appearance: grossly normal Mood: congruent mood Affect: normal affect Speech and Movement: speech and movement normal Attitude: cooperative Judgment: judgment good Coding Level of Care Code Off vis,est,level 3 Diagnoses Menorrhagia with regular cycle N92.0 Assessment and Plan Assessment and Plan (1) Menorrhagia with regular cycle: Status: Acute Orders: Orders Thyroid Stim Hormone (TSH) Today N92.0 - Excessive and frequent menstru (more content not included)... Normal [facility] Platelet countOrdered By: Justo Miramontes on 02-26-2024 Platelets (Bld) [#/Vol] 262 10*3/uL 150-450 [facility] RBC Auto (Bld) [#/Vol]Ordere d By: Susie Miramontes on 02-26-2024 RBC (Bld) [#/Vol] 4.77 10*6/uL 4.2-5.4 [facility] TPO Ab QnOrdered By: Susie haddad on 02-26-2024 Thyroid Peroxidase Antibodies < 9 IU/mL 0-34 [facility] Comment on above: Performed at: [address] [id number] Director: Paul Grimaldo PhD, Phone: [phone] TSH QnOrdered By: Susie parra on 02-26-2024 Thyroid Stimulating Hormone (TSH) 1.580 uIU/mL 0.358-3.740 [facility] White blood cell (WBC) count Ordered By: Susie Miramontes on 02-26-2024 WBC (Bld) [#/Vol] 5.7 10*3/uL 4.4-11.0 [facility] Cervical or vaginal specimen microscopic examination by liquid based cytology (reportOrdered By: Yolis Robles on 05-07-2023 Cytology report Cyto stain.thin prep Doc (Cvx/Vag) Comment . [facility] Comment on above: Criteria not met, HP V Genotype not performed.Performed at: - [facility] [id number] Director: Divine García MD, Phone: [phone] at: =[facility] [id number] Director: Divine García MD, Phone: [phone] Cervical or vagninal specime n microscopic examination by cytology stain (reported asOrdered By: Yolis Robles on 05-07-2023 Cytology report Cyto stain Doc (Cvx/Vag) Comment . [facility] Comment on above: The Pap smear is a s creening test designed to aid in thedetection of premalignant and malignant conditions of theuterine cervix. It is not a diagnostic procedure andshould not be used as the sole means of detecting cervicalcancer. Both false-positive and false-negative reports dooccur. Detection in cervical specim en of any of human papilloma virus (HPV) 16, 18, 31, 33,Ordered By: Yolis Robles on 05-07-2023 HPV 16+18+31+33+35+39+45+5 1+52+56+58+59+66+68 DNA Probe+sig amp Ql (Cvx) Negative Negative [facility] Comment on above: This nucleic acid am plification test detects fourteen high- risk HPV types (16,18,31,33,35,39,45,51,52,56,58,59,66,68)without differentiation. Laboratory - CytologyOrdered By: Yolis Robles on 05-07-2023 Entry Level Management Cyto stain Nom (Cvx/Vag) [ID] Comment . [facility] Comment on above: Linda Camacho, Cytotec hnologist (ASCP) Laboratory - Miscellaneous t estsOrdered By: Yolis Robles on 05-07-2023 Service comment (Unsp spec) [Interp] . . [facility] Thin prep Papanicolaou smear with manual screeningOrdered By: Yolis Robles on 05-07-2023 Thin prep Papanicolaou smear with manual screening Comment . [facility] Comment on above: NEGATIVE FOR INTRAEP ITHELIAL LESION OR MALIGNANCY. Thin prep Papanicolaou smear with manual screening TNP [facility] Comment on above: Test not performedTh e Thin Prep(R) Sql Server Architect was unable to read this specimen.Therefore a manual review was performed. Absolute lymphocyte countOrd ered By: Nikki Monroy on 01-26-2023 Lymphocytes Auto (Unsp spec) [#/Vol] 2.72 10*3/uL 0.83-4.51 [facility] Basophil percentageOrdered B y: Nikki Monroy on 01-26-2023 Basophils/100 WBC (Bld) 0.9 % 0-1 [facility] Eosinophils/100 WBC (Bld) 5.6 % 0-5 [facility] Neutrophils (Bld) [#/Vol] 3.7 10*3/uL 2.0-7.7 [facility] Neutrophils/100 WBC (Bld) 49.3 % 47-70 [facility] WBC (Bld) [#/Vol] 7.5 10*3/uL 4.4-11.0 [facility] Blood erythrocytes count (nu mber/volume)Ordered By: Nikki Monroy on 01-26-2023 RBC (Bld) [#/Vol] 4.61 10*6/uL 4.2-5.4 [facility] Blood hemoglobin measurement (mass/volume)Ordered By: Nikki Monroy on 01-26-2023 Hemoglobin (Bld) [Mass/Vol] 14.5 g/dL 12.0-15.0 [facility] Blood lymphocytes/100 leukoc ytesOrdered By: Nikki Monroy on 01-26-2023 Lymphocytes/100 WBC (Bld) 36.1 % 19-41 [facility] Blood monocytes/100 leukocyt esOrdered By: Nikki Monroy on 01-26-2023 Monocytes/100 WBC (Bld) 7.7 % 0-10 [facility] Blood platelet mean volumeOr dered By: Nikki Monroy on 01-26-2023 Platelet mean volume (Bld) [Entitic vol] 10.4 fL 6.2-12.0 [facility] Determination of erythrocyte mean corpuscular volume (MCV)Ordered By: Nikki Monroy on 01-26-2023 MCV (RBC) [Entitic vol] 92.8 fL 81-99 [facility] Hematocrit Auto (Bld) [Volum e fraction]Ordered By: Nikki Monroy on 01-26-2023 Hematocrit (Bld) [Volume fraction] 42.8 % 37-47 [facility] Laboratory - Chemistry and C hemistry - challengeon 01-26-2023 HCG ( test) Ql (U) Negative [facility] Laboratory - Hematology and Cell countsOrdered By: Nikki Monroy on 01-26-2023 Erythrocyte distribution width (RBC) [Entitic vol] 41.8 fL 35.1-43.9 [facility] Erythrocyte distribution width (RBC) [Ratio] 12.3 % 11.6-14.6 [facility] Immature granulocytes/100 WBC (Bld) 0.400 % 0.0-0.9 [facility] Comment on above: IG% - Immature Granu locytes (promyelocytes, myelocytes and metamyelocytes) > 1% indicates that a LEFT SHIFT is Present. MCH (RBC) [Entitic mass] 31.5 pg 27.0-32.0 [facility] Nucleated RBC/100 WBC (Bld) [Ratio] 0 % 0-5 [facility] MCHC Auto (RBC) [Mass/Vol]Or dered By: Nikki Monroy on 01-26-2023 MCHC (RBC) [Mass/Vol] 33.9 g/dL 32-36 [facility] No Panel InformationOrdered By: Nikki Monroy on 01-26-2023 Thyroid Stimulating Hormone (TSH) 2.51 uIU/mL 0.358-3.74 [facility] Platelets bldOrdered By: Madhav Monroy on 01-26-2023 Platelets (Bld) [#/Vol] 270 10*3/uL 150-450 [facility] Serum or plasma prolactin me asurement (mass/volume)Ordered By: Nikki Monroy on 01-26-2023 Prolactin [Mass/Vol] 44.8 ng/mL [facility] Comment on above: NORMAL REFERENCE RAN GES FEMALE NON- 2.2 - 30.3 ng/mL 8.1 - 347.6 ng/mL POST-MENOPAUSAL 0.7 - 31.5 ng/mL MALE 2.5 - 17.4 ng/mL Basophil percentageon 2022 Bilirubin [Mass/Vol] 0.40 mg/dL 0.20-1.00 [facility] Comment on above: For patients on eltr ombopag therapy, use of Dimension [place] TBIL is not recommended. Chloride [Moles/Vol] 108 mmol/L 98-107 [facility] Glucose [Mass/Vol] 88 mg/dL 74-106 [facility] Potassium [Moles/Vol] 4.0 mmol/L 3.5-5.1 [facility] Protein [Mass/Vol] 6.8 g/dL 6.4-8.2 [facility] Sodium [Moles/Vol] 142 mmol/L 136-145 [facility] WBC (Bld) [#/Vol] 5.9 10*3/uL 4.4-11.0 [facility] Blood erythrocytes count (nu mber/volume)on 04-10-2022 RBC (Bld) [#/Vol] 4.04 10*6/uL 4.2-5.4 [facility] Blood hemoglobin measurement (mass/volume)on 04-10-2022 Hemoglobin (Bld) [Mass/Vol] 12.5 g/dL 12.0-15.0 [facility] Blood platelet mean volumeon 04-10-2022 Platelet mean volume (Bld) [Entitic vol] 11.2 fL 6.2-12.0 [facility] Determination of erythrocyte mean corpuscular volume (MCV)on 04-10-2022 MCV (RBC) [Entitic vol] 94.8 fL 81-99 [facility] Hematocrit Auto (Bld) [Volum e fraction]on 04-10-2022 Hematocrit (Bld) [Volume fraction] 38.3 % 37-47 [facility] Insulin-like growth factor ( IGF) measurementon 04-10-2022 Insulin-like growth factor [Moles/Vol] 150 ng/mL 91-308 [facility] Comment on above: Performed at: [address] [id number] Director: Paul Grimaldo PhD, Phone: [phone] at: [facility] [id number] Director: Vladislav Barnes MD, Phone: [phone] Laboratory - Chemistry and C hemistry - challengeon 04-10-2022 ALP [Catalytic activity/Vol] 101 U/L 45-117 [facility] ALT [Catalytic activity/Vol] 27 U/L 13-56 [facility] CO2 [Moles/Vol] 26.0 mmol/L 21.0-32.0 [facility] Free T4 [Mass/Vol] 0.86 ng/dL 0.76-1.46 [facility] Globulin (S) [Mass/Vol] 3.6 g/dL 2.2-4.2 [facility] Urea nitrogen/Creatinine [Mass ratio] 11.5 mg/mg 12-08 [facility] Laboratory - Hematology and Cell countson 04-10-2022 Erythrocyte distribution width (RBC) [Entitic vol] 43.3 fL 35.1-43.9 [facility] Erythrocyte distribution width (RBC) [Ratio] 12.4 % 11.6-14.6 [facility] MCH (RBC) [Entitic mass] 30.9 pg 27.0-32.0 [facility] MCHC Auto (RBC) [Mass/Vol]on 04-10-2022 MCHC (RBC) [Mass/Vol] 32.6 g/dL 32-36 [facility] No Panel Informationon 04-10 Adrenocorticotropic Hormone 35.4 pg/mL 7.2-63.3 [facility] Comment on above: ACTH reference inter samuel for samples collected between 7 and10 AM. Estimated GFR (MDRD) Amer 98 mL/min >60 [facility] Comment on above: GFR Calc Estimated GFR (MDRD) Non-Af Amer 81 mL/min >60 [facility] Comment on above: Non- GFR Calc Luteinizing Hormone 2.7 mIU/mL [facility] Comment on above: NORMAL REFERENCE RAN GES FEMALE FOLLICULAR 1.9 - 26.2 mIU/mL MID-CYCLE PEAK 22.8 - 76.1 mIU/mL LUTEAL 0.6 - 16.6 mIU/mL POST-MENOPAUSAL ON MHT 1.1 - 52.4 mIU/mL NOT ON MHT 8.6 - 61.8 mIU/mL MALE 1.2 - 10.6 mIU/mL Thyroid Stimulating Hormone (TSH) 1.87 uIU/mL 0.358-3.74 [facility] Platelets bldon 04-10-2022 Platelets (Bld) [#/Vol] 241 10*3/uL 150-450 [facility] Serum or plasma albumin jesus urement (mass/volume)on 04-10-2022 Albumin [Mass/Vol] 3.2 g/dL 3.2-5.0 [facility] Serum or plasma albumin/glob ulin mass ratioon 04-10-2022 Albumin/Globulin [Mass ratio] 0.9 {ratio} 0.9-2.4 [facility] Serum or plasma calcium jesus urement (mass/volume)on 04-10-2022 Calcium [Mass/Vol] 8.9 mg/dL 8.5-10.1 [facility] Serum or plasma cortisol estee surement (mass/volume)on 04-10-2022 Cortisol [Mass/Vol] 15.50 ug/dL 3.44-22.45 [facility] Comment on above: Adult (AM) 5.27 - 22 .45 ug/dL Adult (PM) 3.44 - 16.76 ug/dLPlease note revised CORTISOL reference range effective 2019. Serum or plasma creatinine m easurement (mass/volume)on 04-10-2022 Creatinine [Mass/Vol] 0.87 mg/dL 0.55-1.02 [facility] Comment on above: The validity of the calculated GFR & GFRAA in patients over 70 years has not been determined. Clinical correlation is essential. Serum or plasma prolactin me asurement (mass/volume)on 04-10-2022 Prolactin [Mass/Vol] 99.1 ng/mL [facility] Comment on above: NORMAL REFERENCE RAN GES FEMALE NON- 2.2 - 30.3 ng/mL 8.1 - 347.6 ng/mL POST-MENOPAUSAL 0.7 - 31.5 ng/mL MALE 2.5 - 17.4 ng/mL Serum or plasma urea nitroge n measurement (mass/volume)on 04-10-2022 Urea nitrogen [Mass/Vol] 10 mg/dL 7-18 [facility] Thin prep Papanicolaou smear with manual screeningon 04-10-2022 Thin prep Papanicolaou smear with manual screening 21 U/L 15-37 [facility] Thin prep Papanicolaou smear with manual screening 8 5-15 [facility] No Panel InformationOrdered By: Dr. Robles on 03-19-2022 Group B Streptococcus Culture Group B Beta Streptococcus is not isolated. [facility] Culture, urineOrdered By: Dr Murphy Robles on 03-18-2022 Bacteria identified Cx Nom (U) Positive [facility] Basophil percentageOrdered B y: Dr. Robles on 03-16-2022 WBC (Bld) [#/Vol] 9.5 10*3/uL 4.4-11.0 [facility] Basophil percentage 10-25 SEEN /hpf 0-5 [facility] Bilirubin Test strip Ql (U)O rdered By: Dr. Robles on 03-16-2022 Bilirubin Ql (U) Negative Negative [facility] Blood erythrocytes count (nu mber/volume)Ordered By: Dr. Robles on 03-16-2022 RBC (Bld) [#/Vol] 3.86 10*6/uL 4.2-5.4 [facility] Blood hemoglobin measurement (mass/volume)Ordered By: Dr. Robles on 03-16-2022 Hemoglobin (Bld) [Mass/Vol] 12.2 g/dL 12.0-15.0 [facility] Blood platelet mean volumeOr dered By: Dr. Robles on 03-16-2022 Platelet mean volume (Bld) [Entitic vol] 13.1 fL 6.2-12.0 [facility] Determination of erythrocyte mean corpuscular volume (MCV)Ordered By: Dr. Robles on 03-16-2022 MCV (RBC) [Entitic vol] 90.7 fL 81-99 [facility] Hematocrit Auto (Bld) [Volum e fraction]Ordered By: Dr. Robles on 03-16-2022 Hematocrit (Bld) [Volume fraction] 35.0 % 37-47 [facility] Ketones Test strip Ql (U)Ord ered By: Dr. Robles on 03-16-2022 Ketones Ql (U) Negative Negative [facility] Laboratory - Chemistry and C hemistry - challengeOrdered By: Dr. Robles on 03-16-2022 ALT [Catalytic activity/Vol] 15 U/L 13-56 [facility] Laboratory - Chemistry and C hemistry - challengeon 03-16-2022 Glucose Ql (U) Negative [facility] Laboratory - Hematology and Cell countsOrdered By: Dr. Robles on 03-16-2022 Erythrocyte distribution width (RBC) [Entitic vol] 41.0 fL 35.1-43.9 [facility] Erythrocyte distribution width (RBC) [Ratio] 12.6 % 11.6-14.6 [facility] MCH (RBC) [Entitic mass] 31.6 pg 27.0-32.0 [facility] Laboratory - Urinalysison Protein Ql (U) 2+ [facility] MCHC Auto (RBC) [Mass/Vol]Or dered By: Dr. Robles on 03-16-2022 MCHC (RBC) [Mass/Vol] 34.9 g/dL 32-36 [facility] Mucus LM Ql (Urine sed)Order ed By: Dr. Robles on 03-16-2022 Mucus Ql (Urine sed) 0 SEEN /hpf [facility] Nitrite Test strip Ql (U)Ord ered By: Dr. Robles on 03-16-2022 Nitrite Ql (U) Negative Negative [facility] No Panel InformationOrdered By: Dr. Robles on 03-16-2022 Estimated Creatinine Clearance Calc 108.79 ml/min [facility] Estimated GFR (MDRD) Amer 95 mL/min >60 [facility] Comment on above: GFR Calc Estimated GFR (MDRD) Non-Af Amer 78 mL/min >60 [facility] Comment on above: Non- GFR Calc Platelets bldOrdered By: Dr. Robles on 03-16-2022 Platelets (Bld) [#/Vol] 205 10*3/uL 150-450 [facility] Protein Test strip Ql (U)Ord ered By: Dr. Robles on 03-16-2022 Protein Ql (U) 100 mg/dl Negative [facility] Serum or plasma creatinine m easurement (mass/volume)Ordered By: Dr. Robles on 03-16-2022 Creatinine [Mass/Vol] 0.90 mg/dL 0.55-1.02 [facility] Comment on above: The validity of the calculated GFR & GFRAA in patients over 70 years has not been determined. Clinical correlation is essential. Serum or plasma uric acid me asurement (mass/volume)Ordered By: Dr. Robles on 03-16-2022 Urate [Mass/Vol] 6.9 mg/dL 2.6-6.0 [facility] Comment on above: The drugs N-Acetylcy steine and Metamizole may falsely depress this assay. Squamous epithelial cells de tection in urine sediment by light microscopyOrdered By: Dr. Robles on 03-16-2022 Epithelial cells.squamous LM Ql (Urine sed) 0-5 SEEN /hpf 5-10 [facility] Thin prep Papanicolaou smear with manual screeningOrdered By: Dr. Robles on 03-16-2022 Thin prep Papanicolaou smear with manual screening 20 U/L 15-37 [facility] Urine blood detectionOrdered By: Dr. Robles on 03-16-2022 RBC Ql (U) 25 /ul Negative [facility] RBC Ql (U) 0 SEEN /hpf 0-5 [facility] Urine clarityOrdered By: Dr. Robles on 03-16-2022 Clarity (U) Clear Clear [facility] Urine color determinationOrd ered By: Dr. Robles on 03-16-2022 Color (U) Yellow Yellow [facility] Urine creatinine measurement (mass/volume)Ordered By: Dr. Robles on 03-16-2022 Creatinine (U) [Mass/Vol] 154.00 mg/dL NO RANGE EST. [facility] Urine glucose detectionOrder ed By: Dr. Robles on 03-16-2022 Glucose Ql (U) Normal mg/dl Normal [facility] Urine leukocyte esterase det ection by dipstickOrdered By: Dr. Robles on 03-16-2022 Leukocyte esterase Test strip Ql (U) 500 /ul Negative [facility] Urine pHOrdered By: Dr. Margaret cleveland on 03-16-2022 pH (U) 5.0 [pH] 5.0 - 8.0 [facility] Urine protein measurement (m ass/volume)Ordered By: Dr. Robles on 03-16-2022 Protein (U) [Mass/Vol] 242.5 mg/dL 0.0-11.8 [facility] Urine protein/creatinine mas s ratioOrdered By: Dr. Robles on 03-16-2022 Protein/Creatinine (U) [Mass ratio] 1575 mg/g CRE 0-200 [facility] Urine sediment bacteria coun t by microscopy (number/high power field)Ordered By: Dr. Robles on 03-16-2022 Bacteria LM.HPF (Urine sed) [#/Area] 1 /[HPF] None Seen [facility] Urine specific gravity measu rementOrdered By: Dr. Robles on 03-16-2022 Specific gravity (U) [Rel density] 1.020 1.002-1.030 [facility] Urobilinogen Auto test strip Ql (U)Ordered By: Dr. Robles on 03-16-2022 Urobilinogen Ql (U) Normal mg/dl Normal [facility] Laboratory - Chemistry and C hemistry - challengeon 03-02-2022 Glucose Ql (U) Negative [facility] Laboratory - Urinalysison Protein Ql (U) Negative [facility] Laboratory - Chemistry and C hemistry - challengeon 02-16-2022 Glucose Ql (U) Negative [facility] Laboratory - Urinalysison Protein Ql (U) Negative [facility] Laboratory - Chemistry and C hemistry - challengeon 02-02-2022 Glucose Ql (U) Negative [facility] Laboratory - Urinalysison Protein Ql (U) Negative [facility] Laboratory - Chemistry and C hemistry - challengeon 01-19-2022 Glucose Ql (U) Negative [facility] Laboratory - Urinalysison Protein Ql (U) Negative [facility] Absolute lymphocyte countOrd ered By: Dr. Robles on 12-29-2021 Lymphocytes Auto (Unsp spec) [#/Vol] 2.28 10*3/uL 0.83-4.51 [facility] Basophil percentageOrdered B y: Dr. Robles on 12-29-2021 Basophils/100 WBC (Bld) 0.5 % 0-1 [facility] Eosinophils/100 WBC (Bld) 3.0 % 0-5 [facility] Neutrophils (Bld) [#/Vol] 7.5 10*3/uL 2.0-7.7 [facility] Neutrophils/100 WBC (Bld) 67.6 % 47-70 [facility] WBC (Bld) [#/Vol] 11.1 10*3/uL 4.4-11.0 [facility] Blood erythrocytes count (nu mber/volume)Ordered By: Dr. Robles on 12-29-2021 RBC (Bld) [#/Vol] 3.89 10*6/uL 4.2-5.4 [facility] Blood hemoglobin measurement (mass/volume)Ordered By: Dr. Robles on 12-29-2021 Hemoglobin (Bld) [Mass/Vol] 12.4 g/dL 12.0-15.0 [facility] Blood lymphocytes/100 leukoc ytesOrdered By: Dr. Robles on 12-29-2021 Lymphocytes/100 WBC (Bld) 20.6 % 19-41 [facility] Blood monocytes/100 leukocyt esOrdered By: Dr. Robles on 12-29-2021 Monocytes/100 WBC (Bld) 7.8 % 0-10 [facility] Blood platelet mean volumeOr dered By: Dr. Robles on 12-29-2021 Platelet mean volume (Bld) [Entitic vol] 10.7 fL 6.2-12.0 [facility] Determination of erythrocyte mean corpuscular volume (MCV)Ordered By: Dr. Robles on 12-29-2021 MCV (RBC) [Entitic vol] 92.5 fL 81-99 [facility] Gestational diabetes screen 1-hour screen with 50g oral glucose loadOrdered By: Dr. Robles on 12-29-2021 Glucose 1 Hr post 50 g glucose PO [Mass/Vol] 61 mg/dL 70-140 [facility] Hematocrit Auto (Bld) [Volum e fraction]Ordered By: Dr. Robles on 12-29-2021 Hematocrit (Bld) [Volume fraction] 36.0 % 37-47 [facility] Laboratory - Chemistry and C hemistry - challengeon 12-29-2021 Glucose Ql (U) Negative [facility] Laboratory - Hematology and Cell countsOrdered By: Dr. Robles on 12-29-2021 Erythrocyte distribution width (RBC) [Entitic vol] 41.4 fL 35.1-43.9 [facility] Erythrocyte distribution width (RBC) [Ratio] 12.2 % 11.6-14.6 [facility] Immature granulocytes/100 WBC (Bld) 0.500 % 0.0-0.9 [facility] Comment on above: IG% - Immature Granu locytes (promyelocytes, myelocytes and metamyelocytes) > 1% indicates that a LEFT SHIFT is Present. MCH (RBC) [Entitic mass] 31.9 pg 27.0-32.0 [facility] Nucleated RBC/100 WBC (Bld) [Ratio] 0 % 0-5 [facility] Laboratory - Urinalysison Protein Ql (U) Negative [facility] MCHC Auto (RBC) [Mass/Vol]Or dered By: Dr. Robels on 12-29-2021 MCHC (RBC) [Mass/Vol] 34.4 g/dL 32-36 [facility] Platelets bldOrdered By: Dr. Robles on 12-29-2021 Platelets (Bld) [#/Vol] 248 10*3/uL 150-450 [facility] Laboratory - Chemistry and C hemistry - challengeon 12-02-2021 Glucose Ql (U) Negative [facility] Laboratory - Urinalysison Protein Ql (U) Negative [facility] Laboratory - Chemistry and C hemistry - challengeon 11-03-2021 Glucose Ql (U) Negative [facility] Work Phone: Laboratory - Urinalysison Protein Ql (U) Negative [facility] Work Phone: Laboratory - Chemistry and C hemistry - challengeon 10-06-2021 Glucose Ql (U) Negative [facility] Work Phone: Laboratory - Urinalysison Protein Ql (U) Negative [facility] Work Phone: Absolute lymphocyte counton 09-17-2021 Lymphocytes Auto (Unsp spec) [#/Vol] 2.24 10*3/uL 0.83-4.51 [facility] Work Phone: Basophil percentageon 2021 Basophil percentage 10-25 SEEN /hpf 0-5 [facility] Work Phone: Basophils/100 WBC (Bld) 0.4 % 0-1 [facility] Work Phone: Eosinophils/100 WBC (Bld) 2.6 % 0-5 [facility] Work Phone: Neutrophils (Bld) [#/Vol] 6.3 10*3/uL 2.0-7.7 [facility] Work Phone: Neutrophils/100 WBC (Bld) 66.0 % 47-70 [facility] Work Phone: WBC (Bld) [#/Vol] 9.6 10*3/uL 4.4-11.0 [facility] Work Phone: Bilirubin Test strip Ql (U)o n 09-17-2021 Bilirubin Ql (U) Negative Negative [facility] Work Phone: Blood erythrocytes count (nu mber/volume)on 09-17-2021 RBC (Bld) [#/Vol] 4.21 10*6/uL 4.2-5.4 [facility] Work Phone: Blood hemoglobin measurement (mass/volume)on 09-17-2021 Hemoglobin (Bld) [Mass/Vol] 13.4 g/dL 12.0-15.0 [facility] Work Phone: Blood lymphocytes/100 leukoc yteson 09-17-2021 Lymphocytes/100 WBC (Bld) 23.4 % 19-41 [facility] Work Phone: Blood monocytes/100 leukocyt eson 09-17-2021 Monocytes/100 WBC (Bld) 7.2 % 0-10 [facility] Work Phone: Blood platelet mean volumeon 09-17-2021 Platelet mean volume (Bld) [Entitic vol] 9.8 fL 6.2-12.0 [facility] Work Phone: Determination of erythrocyte mean corpuscular volume (MCV)on 09-17-2021 MCV (RBC) [Entitic vol] 92.6 fL 81-99 [facility] Work Phone: Hematocrit Auto (Bld) [Volum e fraction]on 09-17-2021 Hematocrit (Bld) [Volume fraction] 39.0 % 37-47 [facility] Work Phone: Ketones Test strip Ql (U)on 09-17-2021 Ketones Ql (U) Negative Negative [facility] Work Phone: [phone] Laboratory - Hematology and Cell countson 09-17-2021 Erythrocyte distribution width (RBC) [Entitic vol] 41.4 fL 35.1-43.9 [facility] Work Phone: [phone] Erythrocyte distribution width (RBC) [Ratio] 12.1 % 11.6-14.6 [facility] Work Phone: [phone] Immature granulocytes/100 WBC (Bld) 0.400 % 0.0-0.9 [facility] Work Phone: [phone] Comment on above: IG% - Immature Granu locytes (promyelocytes, myelocytes and metamyelocytes) > 1% indicates that a LEFT SHIFT is Present. MCH (RBC) [Entitic mass] 31.8 pg 27.0-32.0 [facility] Work Phone: [phone] Nucleated RBC/100 WBC (Bld) [Ratio] 0 % 0-5 [facility] Work Phone: [phone] MCHC Auto (RBC) [Mass/Vol]on 09-17-2021 MCHC (RBC) [Mass/Vol] 34.4 g/dL 32-36 [facility] Work Phone: [phone] Mucus LM Ql (Urine sed)on Mucus Ql (Urine sed) 0 SEEN /hpf [facility] Work Phone: [phone] Nitrite Test strip Ql (U)on 09-17-2021 Nitrite Ql (U) Negative Negative [facility] Work Phone: [phone] Platelets bldon 09-17-2021 Platelets (Bld) [#/Vol] 221 10*3/uL 150-450 [facility] Work Phone: [phone] Protein Test strip Ql (U)on 09-17-2021 Protein Ql (U) Negative Negative [facility] Work Phone: [phone] Serum or plasma choriogonado tropin detectionon 09-17-2021 HCG ( test) [place] [address]853 mIU/mL <4 [facility] Work Phone: [phone] Comment on above: hCG levels with Gest ational AgeGestational Age hCG mIU/mL (IU/L)0.2 - 1 week 5 - 501-2 weeks 50 - 5002-3 weeks 100 - 57371-6 weeks 500 - 261432-0 weeks 1000 - 477733-7 weeks 98544 - 100,0006-8 weeks 79060 - 200,0002-3 months 52567 - 100,000 Squamous epithelial cells de tection in urine sediment by light microscopyon 09-17-2021 Epithelial cells.squamous LM Ql (Urine sed) 10-25 SEEN /hpf 5-10 [facility] Work Phone: Urine blood detectionon -3 RBC Ql (U) 150 /ul Negative [facility] Work Phone: RBC Ql (U) 5-10 SEEN /hpf 0-5 [facility] Work Phone: Urine clarityon 09-17-2021 Clarity (U) Cloudy Clear [facility] Work Phone: Urine color determinationon 09-17-2021 Color (U) Yellow Yellow [facility] Work Phone: Urine glucose detectionon Glucose Ql (U) Negative Normal [facility] Work Phone: Urine leukocyte esterase det ection by dipstickon 09-17-2021 Leukocyte esterase Test strip Ql (U) 500 /ul Negative [facility] Work Phone: Urine pHon 09-17-2021 pH (U) 5.0 [pH] 5.0 - 8.0 [facility] Work Phone: Urine sediment bacteria coun t by microscopy (number/high power field)on 09-17-2021 Bacteria LM.HPF (Urine sed) [#/Area] 1 /[HPF] None Seen [facility] Work Phone: Urine specific gravity measu rementon 09-17-2021 Specific gravity (U) [Rel density] 1.030 1.002-1.030 [facility] Work Phone: Urobilinogen Auto test strip Ql (U)on 09-17-2021 Urobilinogen Ql (U) Normal mg/dl Normal [facility] Work Phone: Absolute lymphocyte counton 09-15-2021 Lymphocytes Auto (Unsp spec) [#/Vol] 2.78 10*3/uL 0.83-4.51 [facility] Work Phone: Basophil percentageon 2021 Basophils/100 WBC (Bld) 0.6 % 0-1 [facility] Work Phone: [phone] Eosinophils/100 WBC (Bld) 3.9 % 0-5 [facility] Work Phone: [phone] Neutrophils (Bld) [#/Vol] 8.0 10*3/uL 2.0-7.7 [facility] Work Phone: [phone] Neutrophils/100 WBC (Bld) 65.3 % 47-70 [facility] Work Phone: [phone] WBC (Bld) [#/Vol] 12.2 10*3/uL 4.4-11.0 [facility] Work Phone: [phone] Blood erythrocytes count (nu mber/volume)on 09-15-2021 RBC (Bld) [#/Vol] 4.24 10*6/uL 4.2-5.4 [facility] Work Phone: [phone] Blood hemoglobin measurement (mass/volume)on 09-15-2021 Hemoglobin (Bld) [Mass/Vol] 13.3 g/dL 12.0-15.0 [facility] Work Phone: [phone] Blood lymphocytes/100 leukoc yteson 09-15-2021 Lymphocytes/100 WBC (Bld) 22.8 % 19-41 [facility] Work Phone: Blood monocytes/100 leukocyt eson 09-15-2021 Monocytes/100 WBC (Bld) 6.9 % 0-10 [facility] Work Phone: Blood platelet mean volumeon 09-15-2021 Platelet mean volume (Bld) [Entitic vol] 9.8 fL 6.2-12.0 [facility] Work Phone: Determination of erythrocyte mean corpuscular volume (MCV)on 09-15-2021 MCV (RBC) [Entitic vol] 90.3 fL 81-99 [facility] Work Phone: [phone] HIV 1 and HIV-2 antibody ass ay with HIV-1 p24 antigen detectionon 09-15-2021 HIV 1+2 Ab+HIV1 p24 Ag IA Ql Non-Reactive Nonreactive [facility] Work Phone: [phone] Hematocrit Auto (Bld) [Volum e fraction]on 09-15-2021 Hematocrit (Bld) [Volume fraction] 38.3 % 37-47 [facility] Work Phone: [phone] Laboratory - Hematology and Cell countson 09-15-2021 Erythrocyte distribution width (RBC) [Entitic vol] 39.6 fL 35.1-43.9 [facility] Work Phone: [phone] Erythrocyte distribution width (RBC) [Ratio] 12.1 % 11.6-14.6 [facility] Work Phone: [phone] Immature granulocytes/100 WBC (Bld) 0.500 % 0.0-0.9 [facility] Work Phone: [phone] Comment on above: IG% - Immature Granu locytes (promyelocytes, myelocytes and metamyelocytes) > 1% indicates that a LEFT SHIFT is Present. MCH (RBC) [Entitic mass] 31.4 pg 27.0-32.0 [facility] Work Phone: [phone] Nucleated RBC/100 WBC (Bld) [Ratio] 0 % 0-5 [facility] Work Phone: [phone] MCHC Auto (RBC) [Mass/Vol]on 09-15-2021 MCHC (RBC) [Mass/Vol] 34.7 g/dL 32-36 [facility] Work Phone: [phone] No Panel Informationon 09-15 Hepatitis B Surface Antigen Non-Reactive Nonreactive [facility] Work Phone: [phone] Hepatitis C Antibody Non-Reactive Nonreactive [facility] Work Phone: [phone] Comment on above: Non Reactive: < 0.8 Equivocal: >/= 0.8 to < 1.0 Reactive: >/= 1.0The CDC recommends that a reactive/equivocal HCV antibody result be followed up by the HCV Nucleic Acid Amplificationtest (992506) Miscellaneous Test Comment MAILED SPECIMEN [facility] Work Phone: [phone] Rubella IgG Antibody Reactive Nonreactive [facility] Work Phone: Comment on above: Antibody Results Int erpretation of Immune Status Non Reactive Presumed Non-Immune Equivocal Equivocal Reactive Presumed Immune Platelets bldon 09-15-2021 Platelets (Bld) [#/Vol] 243 10*3/uL 150-450 [facility] Work Phone: [phone] Serum Treponema species anti body detectionon 09-15-2021 Treponema sp Ab Ql (S) Non-Reactive [facility] Work Phone: [phone] Cervical or vagninal specime n microscopic examination by cytology stain (reported ason 09-07-2021 Cytology report Cyto stain Doc (Cvx/Vag) Comment . [facility] Work Phone: Comment on above: The Pap smear is a s creening test designed to aid in thedetection of premalignant and malignant conditions of theuterine cervix. It is not a diagnostic procedure andshould not be used as the sole means of detecting cervicalcancer. Both false-positive and false-negative reports dooccur. Chlamydia trachomatis rRNA d etection by probe and target amplification methodon 09-07-2021 C. trachomatis rRNA LUCIAN+probe Ql (Unsp spec) Negative Negative [facility] Work Phone: [phone] Laboratory - Cytologyon 08-20 Entry Level Management Cyto stain Nom (Cvx/Vag) [ID] Comment . [facility] Work Phone: Comment on above: Jo joseph, Key Bed Installer (ASCP) Pathologist Cyto stain Nom (Cvx/Vag) [ID] Comment . [facility] Work Phone: Comment on above: Aleida Currie MD, Pa thologist Recommended follow-up Cyto stain Nom (Cvx/Vag) Comment . [facility] Work Phone: Comment on above: Suggest follow up as clinically appropriate. Laboratory - Drug toxicology on 09-07-2021 Amphetamines Ql (U) Negative <1000 ng/mL [facility] Work Phone: [phone] Benzodiazepines Ql (U) Negative < 200 ng/mL [facility] Work Phone: [phone] Cannabinoids Screen Ql (U) Negative < 50 ng/mL [facility] Work Phone: [phone] Cocaine Ql (U) Negative < 300 ng/mL [facility] Work Phone: [phone] Opiates Ql (U) Negative < 300 ng/mL [facility] Work Phone: [phone] Laboratory - Microbiology an d Antimicrobial susceptibilityon 09-07-2021 N. gonorrhoeae DNA LUCIAN+probe Ql (Unsp spec) Negative Negative [facility] Work Phone: [phone] Comment on above: Performed at: =[address] [id number] Director: Divine García MD, Phone: [phone] Laboratory - Miscellaneous t estson 09-07-2021 Service comment (Unsp spec) [Interp] Comment . [facility] Work Phone: [phone] Comment on above: This liquid based Th inPrep(R) pap test was screened withthe use of an image guided system. Service comment (Unsp spec) [Interp] . . [facility] Work Phone: [phone] No Panel Informationon 09-07 Human Papillomavirus Screen Comment . [facility] Work Phone: [phone] Comment on above: See below for HPV te sting results. MDMA (Ecstasy) Screen Negative < 500 ng/mL [facility] Work Phone: [phone] Pathology report final diagnosis Narrative Comment . [facility] Work Phone: [phone] Comment on above: EPITHELIAL CELL ABNO RMALITY.ATYPICAL SQUAMOUS CELLS OF UNDETERMINED SIGNIFICANCE (ASC-US).FUNGAL ORGANISMS MORPHOLOGICALLY CONSISTENT WITH TY SPECIES AREPRESENT. R87.610, R87.5 Urine Barbiturates Screen Negative < 200 ng/mL [facility] Work Phone: [phone] Urine Drug Screen Comment [facility] Work Phone: Comment on above: CONFIRMATORY TESTING FOR ALL POSITIVE URINE DRUG SCREENRESULTS WILL ONLY BE SENT OUT UPON PHYSICIAN ORDER. VISTA Urine Drug Screen methods provide only preliminaryanalytical test results. A more specific alternate chemicalmethod must be used in order to obtain a confirmedanalytical result. Gas chromatography/mass spectrometery(GC/MS) is the preferred confirmatory method. Clinicalconsideration and professional judgement should be appliedto any drug of abuse test result, particularly whenpreliminary positive results are used. URINE TCA TESTING MUST BE ORDERED SEPARATELY. USE TESTMNEMONIC: [facility] Urine Methadone Screen Negative < 300 ng/mL [facility] Work Phone: Urine phencyclidine (PCP) de tectionon 09-07-2021 Phencyclidine Ql (U) Negative < 25 ng/mL [facility] Work Phone: INSULIN ANTIBODIESon 022 INSULIN ANTIBODIES <5.0 [facility] Comment on above: Result Comment: Unit : uU/mL (NOTE) This test is also known as insulin autoantibody or IAA. This test was developed and its performance characteristics determined by [employer]. It has not been cleared or approved by the Food and Drug Administration. Reference Range: <5.0 Negative > or = 5.0 Positive PERFORMED AT [facility] Performed By: #### L PROL, LCORTI, LACTH #### Testing performed at [facility] [address] [place] [id number] ACTH, PLASMAon 04-06-2021 ACTH, PLASMA 5.3 [facility] Comment on above: Result Comment: ACTH reference interval for samples collected between 7 and 10 AM. Reference range: 7.2 to 63.3 Unit: pg/mL PERFORMED AT [facility] Performed By: #### L PROL, LCORTI, LACTH #### Testing performed at [facility] [address] [place] [address] [place] [address] CORTISOLon 04-06-2021 CORTISOL 9.3 [facility] Comment on above: Result Comment: Unit : ug/dL (NOTE) Cortisol AM 6.2 - 19.4 Cortisol PM 2.3 - 11.9 PERFORMED AT [facility] Performed By: #### L PROL, LCORTI, LACTH #### Testing performed at [facility] [address] [facility] [place] [address] PROLACTINon 04-06-[address] [facility] Comment on above: Result Comment: Refe rence range: 4.8 to 23.3 Unit: ng/mL PERFORMED AT [facility] Performed By: #### L PROL, LCORTI, LACTH #### Testing performed at [facility] [address] [place] [address] FREE T4on 04-05-2021 Free T4 [Mass/Vol] 0.74 ng/dL Normal 0.61-1.12 [facility] Comment on above: Performed By: #### T 42 #### Testing performed at [facility] [address] [place] [address] COVID-19, MOLECULARon 2020 SARS-CoV-2 (COVID-19) Ab IA Ql Not detected Normal Not Detected [facility] Comment on above: Result Comment: This test was performed under the FDA's Emergency Use Authorization (EUA). Testing was performed using the [employer] NOW COVID-19 assay on the [employer] platform. This test has not been approved for use in asymptomatic patients and its performance in this patient population has not been evaluated. Negative results do not rule out the presence of SARS-CoV-2/COVID-19. Fact sheets for the EUA can be found at the following links: For Healthcare Providers: https://www.fda.gov/media/525129/download For Patients: https://www.fda.gov/media/937690/download COVID-19, Molecularon 2020 SARS-CoV-2 (COVID-19) RdRp gene LUCIAN+probe Ql (Resp) Not detected Not Detected [facility] Comment on above: This test was perfor med under the FDA's Emergency Use Authorization (EUA). Testing was performed using the [employer] NOW COVID-19 assay on the [employer] platform. This test has not been approved for use in asymptomatic patients and its performance in this patient population has not been evaluated. Negative results do not rule out the presence of SARS-CoV-2/COVID-19. Fact sheets for the EUA can be found at the following links: For Healthcare Providers: https://www.fda.gov/media/864139/download For Patients: https://www.fda.gov/media/959522/download SARS-CoV-2 (COVID-19) RdRp g sunny LUCIAN+probe Ql (Resp)on 02-02-2021 Interpretation and review of laboratory results Normal [facility] PROLACTINon 07-30-2018 Prolactin [Mass/Vol] 22.2 ng/mL Normal 4.8-23.3 [facility] Comment on above: Performed By: #### P ROLAC #### Performed for [facility] [address], [place] [address] Otheron 07-29-2018 Prolactin mass conc 22.20 ng/mL [facility] [employer] Work Phone: [employer] Work Phone: Metabolic Panelon 07-10-2017 Protein mass conc 16.16 g/dL [facility] [employer] Work Phone: Otheron 07-10-2017 Prolactin mass conc 16.160 [facility] [employer] Work Phone: Prolactinon 07-10-2017 Prolactin 16.16 ng/dL Normal [facility] Comment on above: Result Comment: *Prolactin Result InterpretationPre-Menopausal Female: 3.34-26.72 ng/mLPost-Menopausal Female: 2.74-19.64 ng/mL Performed By: #### P ROLAC ####[facility] [place] [address] Culture, urine Bacteria identified Cx Nom (U) Positive [facility] Work Phone: Bacteria identified Cx Nom (U) Streptococcus agalactiae (B) [facility] Work Phone: Vital Signs Date Time Vital Sign Value Performing Clinician Facility 09-25-2024 10:53-0400 Body height 185.42 cm No Primary Care Physician [facility] 09-25-2024 10:53-0400 Body mass index (BMI) [Ratio] 26.9 kg/m2 No Primary Care Physician [facility] 09-25-2024 10:53-0400 Body weight 92.7 kg No Primary Care Physician [facility] 09-25-2024 10:53-0400 Diastolic blood pressure 84 mm[Hg] No Primary Care Physician [facility] 09-25-2024 10:53-0400 Heart rate 72 /min No Primary Care Physician [facility] 09-25-2024 10:53-0400 SaO2% (BldA) [Mass fraction] 98 % No Primary Care Physician [facility] 09-25-2024 10:53-0400 Systolic blood pressure 130 mm[Hg] No Primary Care Physician [facility] 08-22-2024 09:17-0400 Body temperature 98.9 [degF] No Primary Care Physician [facility] 08-22-2024 09:17-0400 Diastolic blood pressure 60 mm[Hg] No Primary Care Physician [facility] 08-22-2024 09:17-0400 Heart rate 79 /min No Primary Care Physician [facility] 08-22-2024 09:17-0400 Respiratory rate 16 /min No Primary Care Physician [facility] 08-22-2024 09:17-0400 SaO2% (BldA) [Mass fraction] 98 % No Primary Care Physician [facility] 08-22-2024 09:17-0400 Systolic blood pressure 110 mm[Hg] No Primary Care Physician [facility] 08-19-2024 13:54-0400 Body height 185.4 cm Shari Rowe MD Work Phone: [facility] 08-19-2024 13:54-0400 Body mass index (BMI) [Ratio] 26.64 kg/m2 Shari Rowe MD Work Phone: [facility] 08-19-2024 13:54-0400 Body weight 91.58 kg Shari Rowe MD Work Phone: [facility] 08-19-2024 13:54-0400 Diastolic blood pressure 80 mm[Hg] Shari Rowe MD Work Phone: [facility] 08-19-2024 13:54-0400 Heart rate 74 /min Shari Rowe MD Work Phone: [facility] 08-19-2024 13:54-0400 SaO2% (BldA) [Mass fraction] 99 % Shari Rowe MD Work Phone: [facility] 08-19-2024 13:54-0400 Systolic blood pressure 138 mm[Hg] Shari Rowe MD Work Phone: [facility] 07-24-2024 08:00-0400 Body height 185.42 cm No Primary Care Physician [facility] 07-24-2024 07:59-0400 Body mass index (BMI) [Ratio] 26.2 kg/m2 No Primary Care Physician [facility] 07-24-2024 07:59-0400 Body weight 90.26 kg No Primary Care Physician [facility] 07-24-2024 07:59-0400 Diastolic blood pressure 87 mm[Hg] No Primary Care Physician [facility] 07-24-2024 07:59-0400 Systolic blood pressure 133 mm[Hg] No Primary Care Physician [facility] 07-22-2024 09:30-0400 Body height 185.4 cm Shari Rowe MD Work Phone: [facility] 07-22-2024 09:30-0400 Body mass index (BMI) [Ratio] 26.39 kg/m2 Shari Rowe MD Work Phone: [facility] 07-22-2024 09:30-0400 Body weight 90.72 kg Shari Rowe MD Work Phone: [facility] 07-22-2024 09:30-0400 Diastolic blood pressure 80 mm[Hg] Shari Rwoe MD Work Phone: [facility] 07-22-2024 09:30-0400 Systolic blood pressure 122 mm[Hg] Shari Rowe MD Work Phone: [facility] 06-19-2024 10:42-0400 Body mass index (BMI) [Ratio] 26.8 kg/m2 No Primary Care Physician [facility] 06-19-2024 10:42-0400 Body weight 92.24 kg No Primary Care Physician [facility] 06-19-2024 10:42-0400 Diastolic blood pressure 82 mm[Hg] No Primary Care Physician [facility] 06-19-2024 10:42-0400 Systolic blood pressure 123 mm[Hg] No Primary Care Physician [facility] 05-22-2024 11:45-0400 Body temperature 99.5 [degF] No Primary Care Physician [facility] 05-22-2024 11:45-0400 Diastolic blood pressure 60 mm[Hg] No Primary Care Physician [facility] 05-22-2024 11:45-0400 Heart rate 85 /min No Primary Care Physician [facility] 05-22-2024 11:45-0400 SaO2% (BldA) [Mass fraction] 97 % No Primary Care Physician [facility] 05-22-2024 11:45-0400 Systolic blood pressure 118 mm[Hg] No Primary Care Physician [facility] 04-30-2024 11:03-0400 Body height 185.42 cm No Primary Care Physician [facility] 04-30-2024 10:55-0400 Body mass index (BMI) [Ratio] 27.6 kg/m2 No Primary Care Physician [facility] 04-30-2024 10:55-0400 Body weight 94.85 kg No Primary Care Physician [facility] 04-30-2024 10:55-0400 Diastolic blood pressure 82 mm[Hg] No Primary Care Physician [facility] 04-30-2024 10:55-0400 Systolic blood pressure 130 mm[Hg] No Primary Care Physician [facility] 03-31-2024 08:57-0500 Body mass index (BMI) [Ratio] 27.6 kg/m2 No Primary Care Physician [facility] 03-31-2024 08:57-0500 Body weight 94.85 kg No Primary Care Physician [facility] 03-31-2024 08:57-0500 Diastolic blood pressure 88 mm[Hg] No Primary Care Physician [facility] 03-31-2024 08:57-0500 Heart rate 83 /min No Primary Care Physician [facility] 03-31-2024 08:57-0500 SaO2% (BldA) [Mass fraction] 98 % No Primary Care Physician [facility] 03-31-2024 08:57-0500 Systolic blood pressure 146 mm[Hg] No Primary Care Physician [facility] 02-26-2024 08:34-0500 Body mass index (BMI) [Ratio] 27.6 kg/m2 No Primary Care Physician [facility] 02-26-2024 08:34-0500 Body weight 94.8 kg No Primary Care Physician [facility] 02-26-2024 08:34-0500 Diastolic blood pressure 91 mm[Hg] No Primary Care Physician [facility] 02-26-2024 08:34-0500 Systolic blood pressure 142 mm[Hg] No Primary Care Physician [facility] 05-07-2023 15:40-0400 Body height 185.42 cm No Primary Care Physician [facility] 05-07-2023 15:38-0400 Body mass index (BMI) [Ratio] 30.4 kg/m2 No Primary Care Physician [facility] 05-07-2023 15:38-0400 Body weight 104.55 kg No Primary Care Physician [facility] 05-07-2023 15:38-0400 Diastolic blood pressure 87 mm[Hg] No Primary Care Physician [facility] 05-07-2023 15:38-0400 Systolic blood pressure 129 mm[Hg] No Primary Care Physician [facility] 01-26-2023 11:02-0500 Body height 185.42 cm No Primary Care Physician [facility] 01-26-2023 11:02-0500 Body mass index (BMI) [Ratio] 30.2 kg/m2 No Primary Care Physician [facility] 01-26-2023 11:02-0500 Body weight 103.87 kg No Primary Care Physician [facility] 01-26-2023 11:02-0500 Diastolic blood pressure 74 mm[Hg] No Primary Care Physician [facility] 01-26-2023 11:02-0500 Systolic blood pressure 128 mm[Hg] No Primary Care Physician [facility] 05-11-2022 09:52-0400 Body height 185.4 cm Jude Carvajal MD Work Phone: [facility] 05-11-2022 09:52-0400 Body mass index (BMI) [Ratio] 27.08 kg/m2 Jude Carvajal MD Work Phone: [facility] 05-11-2022 09:52-0400 Body weight 93.08 kg Jude Carvajal MD Work Phone: [facility] 05-11-2022 09:52-0400 Diastolic blood pressure 80 mm[Hg] Jude Carvajal MD Work Phone: [facility] 05-11-2022 09:52-0400 Heart rate 80 /min Jude Carvajal MD Work Phone: [facility] 05-11-2022 09:52-0400 SaO2% (BldA) [Mass fraction] 98 % Jude Carvajal MD Work Phone: [facility] 05-11-2022 09:52-0400 Systolic blood pressure 142 mm[Hg] Jude Carvajal MD Work Phone: [facility] 03-22-2022 15:34-0500 Body height 185.42 cm No Primary Care Physician [facility] 03-22-2022 15:34-0500 Body mass index (BMI) [Ratio] 26.7 kg/m2 No Primary Care Physician [facility] 03-22-2022 15:34-0500 Body weight 92.07 kg No Primary Care Physician [facility] 03-22-2022 15:34-0500 Diastolic blood pressure 87 mm[Hg] No Primary Care Physician [facility] 03-22-2022 15:34-0500 Systolic blood pressure 123 mm[Hg] No Primary Care Physician [facility] 03-18-2022 13:52-0500 Body temperature 98.7 [degF] No Primary Care Physician [facility] 03-18-2022 13:52-0500 Diastolic blood pressure 77 mm[Hg] No Primary Care Physician [facility] 03-18-2022 13:52-0500 Heart rate 65 /min No Primary Care Physician [facility] 03-18-2022 13:52-0500 Respiratory rate 15 /min No Primary Care Physician [facility] 03-18-2022 13:52-0500 SaO2% (BldA) [Mass fraction] 96 % No Primary Care Physician [facility] 03-18-2022 13:52-0500 Systolic blood pressure 126 mm[Hg] No Primary Care Physician [facility] 03-16-2022 17:38-0500 Body height 185.42 cm No Primary Care Physician [facility] 03-16-2022 17:38-0500 Body mass index (BMI) [Ratio] 30.2 kg/m2 No Primary Care Physician [facility] 03-16-2022 17:38-0500 Body weight 103.9 kg No Primary Care Physician [facility] 03-16-2022 11:22-0500 Body mass index (BMI) [Ratio] 29.4 kg/m2 No Primary Care Physician [facility] 03-16-2022 11:22-0500 Body weight 103.87 kg No Primary Care Physician [facility] 03-16-2022 11:22-0500 Diastolic blood pressure 88 mm[Hg] No Primary Care Physician [facility] 03-16-2022 11:22-0500 Systolic blood pressure 139 mm[Hg] No Primary Care Physician [facility] 03-02-2022 10:10-0500 Body mass index (BMI) [Ratio] 28.6 kg/m2 No Primary Care Physician [facility] 03-02-2022 10:10-0500 Body weight 101.26 kg No Primary Care Physician [facility] 03-02-2022 10:10-0500 Diastolic blood pressure 85 mm[Hg] No Primary Care Physician [facility] 03-02-2022 10:10-0500 Systolic blood pressure 131 mm[Hg] No Primary Care Physician [facility] 02-16-2022 10:36-0500 Body mass index (BMI) [Ratio] 28.5 kg/m2 No Primary Care Physician [facility] 02-16-2022 10:36-0500 Body weight 100.86 kg No Primary Care Physician [facility] 02-16-2022 10:36-0500 Diastolic blood pressure 87 mm[Hg] No Primary Care Physician [facility] 02-16-2022 10:36-0500 Systolic blood pressure 121 mm[Hg] No Primary Care Physician [facility] 02-02-2022 08:59-0500 Body mass index (BMI) [Ratio] 27.7 kg/m2 No Primary Care Physician [facility] 02-02-2022 08:59-0500 Body weight 98.08 kg No Primary Care Physician [facility] 02-02-2022 08:59-0500 Diastolic blood pressure 82 mm[Hg] No Primary Care Physician [facility] 02-02-2022 08:59-0500 Systolic blood pressure 121 mm[Hg] No Primary Care Physician [facility] 01-19-2022 08:24-0500 Body mass index (BMI) [Ratio] 27.6 kg/m2 No Primary Care Physician [facility] 01-19-2022 08:24-0500 Body weight 97.52 kg No Primary Care Physician [facility] 01-19-2022 08:24-0500 Diastolic blood pressure 81 mm[Hg] No Primary Care Physician [facility] 01-19-2022 08:24-0500 Systolic blood pressure 121 mm[Hg] No Primary Care Physician [facility] 12-29-2021 08:58-0500 Body height 187.96 cm [facility] Work Phone: 12-29-2021 08:58-0500 Body mass index (BMI) [Ratio] 26.6 kg/m2 [facility] 12-29-2021 08:58-0500 Body weight 93.89 kg [facility] 12-29-2021 08:58-0500 Diastolic blood pressure 78 mm[Hg] [facility] 12-29-2021 08:58-0500 Systolic blood pressure 122 mm[Hg] [facility] 12-02-2021 11:09-0400 Body mass index (BMI) [Ratio] 25.5 kg/m2 [facility] 12-02-2021 11:09-0400 Body weight 90.26 kg [facility] 12-02-2021 11:09-0400 Diastolic blood pressure 81 mm[Hg] [facility] 12-02-2021 11:09-0400 Systolic blood pressure 135 mm[Hg] [facility] 11-03-2021 09:07-0400 Body mass index (BMI) [Ratio] 25 kg/m2 [facility] Work Phone: 11-03-2021 09:07-0400 Body weight 88.56 kg [facility] Work Phone: 11-03-2021 09:07-0400 Diastolic blood pressure 81 mm[Hg] [facility] Work Phone: 11-03-2021 09:07-0400 Systolic blood pressure 118 mm[Hg] [facility] Work Phone: 10-06-2021 11:21-0400 Body mass index (BMI) [Ratio] 24.3 kg/m2 [facility] Work Phone: 10-06-2021 11:21-0400 Body weight 85.72 kg [facility] Work Phone: 10-06-2021 11:21-0400 Diastolic blood pressure 82 mm[Hg] [facility] Work Phone: 10-06-2021 11:21-0400 Systolic blood pressure 124 mm[Hg] [facility] Work Phone: 09-17-2021 11:59-0400 Body height 187.[address] Yolis Gibson Work Phone: [facility] Work Phone: 09-17-2021 11:59-0400 Body mass index (BMI) [Ratio] 24.3 kg/m2 Dr. Yolis Gibson Work Phone: [facility] Work Phone: 09-17-2021 11:59-0400 Body temperature 97.9 [degF] Dr. Yolis Gibson Work Phone: [facility] Work Phone: 09-17-2021 11:59-0400 Body weight 85.[address] Yolis Gibson Work Phone: [facility] Work Phone: 09-17-2021 11:59-0400 Diastolic blood pressure 91 mm[Hg] Dr. Yolis Gibson Work Phone: [facility] Work Phone: 09-17-2021 11:59-0400 Heart rate 105 /min Dr. Yolis Gibson Work Phone: [facility] Work Phone: 09-17-2021 11:59-0400 Respiratory rate 18 /min Dr. Yolis Gibson Work Phone: [facility] Work Phone: 09-17-2021 11:59-0400 SaO2% (BldA) [Mass fraction] 100 % Dr. Yolis Gibson Work Phone: [facility] Work Phone: 09-17-2021 11:59-0400 Systolic blood pressure 125 mm[Hg] Dr. Yolis Gibson Work Phone: [facility] Work Phone: 09-07-2021 09:09-0400 Body mass index (BMI) [Ratio] 24.6 kg/m2 Dr. Yolis Gibson Work Phone: [facility] Work Phone: 09-07-2021 09:09-0400 Body weight 84.[address] Yolis Gibson Work Phone: [facility] Work Phone: 09-07-2021 09:09-0400 Diastolic blood pressure 80 mm[Hg] Dr. Yolis Gibson Work Phone: [facility] Work Phone: 09-07-2021 09:09-0400 Systolic blood pressure 120 mm[Hg] Dr. Yolis Gibson Work Phone: [facility] Work Phone: 02-02-2021 09:15-0500 Body height 188 cm Lino Lo CNP Work Phone: [facility] 02-02-2021 09:15-0500 Body mass index (BMI) [Ratio] 22.47 kg/m2 Lino Lo LINE MANAGER Work Phone: [facility] 02-02-2021 09:15-0500 Body temperature 98.1 [degF] Lino Lo LINE MANAGER Work Phone: [facility] 02-02-2021 09:15-0500 Body weight 79.38 kg Lino Lo LINE MANAGER Work Phone: [facility] 02-02-2021 09:15-0500 Diastolic blood pressure 77 mm[Hg] Lino Lo LINE MANAGER Work Phone: [facility] 02-02-2021 09:15-0500 Heart rate 89 /min Lino Lo LINE MANAGER Work Phone: [facility] 02-02-2021 09:15-0500 Respiratory rate 16 /min Lino Lo LINE MANAGER Work Phone: [facility] 02-02-2021 09:15-0500 SaO2% (BldA) [Mass fraction] 96 % Lino Lo LINE MANAGER Work Phone: [facility] 02-02-2021 09:15-0500 Systolic blood pressure 120 mm[Hg] Lino Lo LINE MANAGER Work Phone: [facility] 10-05-2019 19:38-0400 BMI (Body Mass Index) 23.09 kg/m2 [facility] 10-05-2019 19:38-0400 Body Temperature 99.3 [degF] [facility] 10-05-2019 19:38-0400 Body weight 79.38 kg [facility] 10-05-2019 19:38-0400 BP Diastolic 80 mm[Hg] [facility] 10-05-2019 19:38-0400 BP Systolic 142 mm[Hg] [facility] 10-05-2019 19:38-0400 Height 185.4 cm [facility] 10-05-2019 19:38-0400 Pulse (Heart Rate) 62 /min [facility] 10-05-2019 19:38-0400 Pulse Oximetry 99 % [facility] 10-05-2019 19:38-0400 Respiratory Rate 16 /min [facility] 07-31-2018 10:30-0400 BMI (Body Mass Index) 21.26 kg/m2 [employer] 07-31-2018 10:30-0400 BP Diastolic 82 mm[Hg] [employer] 07-31-2018 10:30-0400 BP Systolic 110 mm[Hg] [employer] [employer] 07-31-2018 10:30-0400 BSA (Body Surface Area) 1.95 m2 [employer] 07-31-2018 10:30-0400 Height 185.93 cm [employer] 07-31-2018 10:30-0400 Pulse (Heart Rate) 88 /min [facility] [employer] 07-31-2018 10:30-0400 Weight 73.48 kg [employer] [employer] 07-12-2017 10:30-0400 BMI (Body Mass Index) 21.94 kg/m2 [employer] 07-12-2017 10:30-0400 BP Diastolic 78 mm[Hg] [employer] 07-12-2017 10:30-0400 BP Systolic 126 mm[Hg] [facility] [employer] 07-12-2017 10:30-0400 BSA (Body Surface Area) 1.95 m2 [employer] 07-12-2017 10:30-0400 Height 184.15 cm [employer] [employer] 07-12-2017 10:30-0400 Pulse (Heart Rate) 80 /min [employer] 07-12-2017 10:30-0400 Weight 74.39 kg [employer] 01-18-2017 10:08-0500 BMI (Body Mass Index) 22.67 kg/m2 [employer] 01-18-2017 10:08-0500 BP Diastolic 74 mm[Hg] [employer] 01-18-2017 10:08-0500 BP Systolic 116 mm[Hg] [employer] 01-18-2017 10:08-0500 BSA (Body Surface Area) 1.98 m2 [employer] 01-18-2017 10:08-0500 Height 184.15 cm [employer] 01-18-2017 10:08-0500 Pulse (Heart Rate) 72 /min [employer] 01-18-2017 10:08-0500 Weight 76.89 kg Cayla Ramirez [facility] Encounters Encounter Date Encounter Type Care Provider Facility Start: 12-29-2024 End: 12-29-2024 ambulatory No Primary Care Physician Facility:[facility] Start: 09-25-2024 End: 09-25-[address] 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 including hip (HCC) (Primary Dx) Start: 08-12-2024 ambulatory SHARI ROBERSONRF Faci lity:[facility] Start: 08-12-2024 End: 08-12-2024 Subsequent hospital visit by physician [facility] Work Phone: Radiology Comment on above: Mass of left axilla [R22.32] Start: 08-06-2024 End: 08-06-2024 ambulatory SHARI SHINDORF Facility:[facility] Start: 07-25-2024 End: 07-25-2024 Orders Only Shari Rowe MD Work Phone: [facility] Comment on above: Malignant melanoma o f left lower extremity including hip (HCC) (Primary Dx) Start: 07-24-2024 End: 07-24-[address] Nikki Monroy MD -[facility] Work Phone: Start: 07-24-2024 End: 07-24-2024 ambulatory No Primary Care Physician [facility] Work Phone: Start: 07-23-2024 End: 07-23-2024 ambulatory No Primary Care Physician [facility] Work Phone: Start: 07-23-2024 End: 07-23-[address] Nikki Monroy MD -Laboratory Work Phone: Start: 07-23-2024 End: 07-23-2024 Telephone encounter Shari Rowe MD Work Phone: [facility] Comment on above: Appointment Start: 07-22-2024 End: 07-22-2024 Office outpatient new 60 minutes Shari Rowe MD Work Phone: [facility] Comment on above: Mass of left axilla (Primary Dx); Malignant melanoma of left lower extremity including hip (HCC) Start: 07-22-2024 End: 07-23-2024 Orders Only Shari Rowe MD Work Phone: [facility] Comment on above: Malignant melanoma o f leg, left (HCC) (Primary Dx) Start: 07-21-2024 End: 07-21-2024 ambulatory No Primary Care Physician [facility] Work Phone: Start: 07-21-2024 End: 07-21-[address] Nikki Monroy MD -Laboratory Work Phone: Start: 07-21-2024 End: 07-21-2024 ambulatory No Primary Care Physician Facility:[facility] Start: 06-19-2024 End: 06-19-2024 Patient encounter procedure [facility] Work Phone: Start: 06-19-2024 End: 06-19-2024 Patient encounter status Nory NAVA [facility] Start: 06-19-2024 End: 06-19-2024 ambulatory No Primary Care Physician Facility:[facility] Start: 05-22-2024 End: 05-22-2024 Patient encounter procedure Sherman Kessler PA -[facility] Work Phone: Start: 05-22-2024 End: 05-22-2024 ambulatory No Primary Care Physician Facility:[facility] Start: 04-30-2024 End: 04-30-2024 ambulatory No Primary Care Physician [facility] Work Phone: Start: 04-30-2024 End: 04-30-2024 Patient encounter procedure Susie NAVA -Laboratory, Spec[facility] Work Phone: Start: 04-30-2024 End: 04-30-2024 Patient encounter procedure Susie Miramontes NP-C -[facility] Work Phone: Start: 04-30-2024 End: 04-30-2024 ambulatory No Primary Care Physician Facility:[facility] Start: 04-30-2024 End: 04-30-2024 ambulatory No Primary Care Physician Facility:[facility] Start: 03-31-2024 End: 03-31-[address] Demetris Houston MD -[facility] Work Phone: Start: 03-31-2024 End: 03-31-2024 ambulatory No Primary Care Physician Facility:[facility] Start: 03-31-2024 End: 03-31-2024 ambulatory No Primary Care Physician Facility:[facility] Start: 03-05-2024 End: 03-05-2024 Patient encounter procedure Susie NAVA -Ultrasound, [facility] Work Phone: Start: 03-05-2024 End: 03-05-2024 ambulatory No Primary Care Physician Facility:[facility] Start: 02-26-2024 End: 02-26-2024 Patient encounter procedure Susie LUCIANOC [facility] Work Phone: Start: 02-26-2024 End: 02-26-2024 ambulatory No Primary Care Physician Facility:[facility] Start: 02-26-2024 End: 02-26-2024 ambulatory No Primary Care Physician Facility:[facility] Start: 05-18-2023 End: 05-18-2023 ambulatory No Primary Care Physician [facility] Work Phone: Start: 05-18-2023 End: 05-18-2023 Patient encounter procedure No Primary Care Physician [facility]-Outpatient Breast Imaging Work Phone: Start: 05-07-2023 End: 05-07-2023 ambulatory No Primary Care Physician [facility] Work Phone: Start: 05-07-2023 End: 05-07-2023 Patient encounter procedure No Primary Care Physician [facility]-Laboratory, Specimen Work Phone: Start: 05-07-2023 End: 05-07-2023 Patient encounter procedure No Primary Care Physician [facility] Work Phone: Start: 05-03-2023 End: 05-03-2023 ambulatory No Primary Care Physician [facility] Work Phone: Start: 05-03-2023 End: 05-03-2023 Patient encounter procedure No Primary Care Physician [facility]-Ultrasound, [facility] Work Phone: Start: 02-01-2023 End: 02-01-2023 ambulatory No Primary Care Physician [facility] Work Phone: Start: 02-01-2023 End: 02-01-2023 Patient encounter procedure No Primary Care Physician [facility]-Ultrasound, [facility] Work Phone: Start: 01-26-2023 End: 01-26-2023 ambulatory No Primary Care Physician [facility] Work Phone: Start: 01-26-2023 End: 01-26-2023 Patient encounter procedure No Primary Care Physician [facility] Work Phone: Start: 05-11-2022 ambulatory SABINO GALVAN [facility] Start: 05-11-2022 End: 05-11-2022 Office outpatient visit 15 minutes Jude Carvajal MD Work Phone: [facility] Comment on above: Prolactinoma (Primar y Dx) Start: 04-10-2022 End: 04-10-2022 ambulatory No Primary Care Physician [facility] Work Phone: Start: 04-10-2022 End: 04-10-2022 Patient encounter procedure No Primary Care Physician [facility]-Laboratory Start: 03-22-2022 End: 03-22-2022 Patient encounter procedure No Primary Care Physician [facility] Start: 03-20-2022 End: 03-20-2022 Patient encounter procedure No Primary Care Physician [facility] Start: 03-17-2022 Non-patient / Non-visit No [facility] Care Physician [facility] Start: 03-16-2022 End: 03-18-2022 Evaluation and management of inpatient No Primary Care Physician [facility] Start: 03-16-2022 End: 03-16-2022 Patient encounter procedure No Primary Care Physician [facility] Start: 03-09-2022 End: 03-09-2022 ambulatory No Primary Care Physician [facility] Work Phone: Start: 03-09-2022 End: 03-09-2022 Patient encounter procedure No Primary Care Physician [facility] Start: 03-02-2022 End: 03-02-2022 Patient encounter procedure No Primary Care Physician [facility] Start: 02-16-2022 End: 02-16-2022 Patient encounter procedure No Primary Care Physician [facility] Start: 02-02-2022 End: 02-02-2022 Patient encounter procedure No [facility] [facility] Start: 01-19-2022 End: 01-19-2022 Patient encounter procedure No Primary Care Physician [facility] Start: 12-29-2021 End: 12-29-2021 ambulatory GABY VANN [facility] Work Phone: Start: 12-29-2021 End: 12-29-2021 Patient encounter procedure [facility] Start: 12-02-2021 End: 12-02-2021 Patient encounter procedure [facility] Start: 11-03-2021 End: 11-03-2021 Patient encounter procedure [facility] Start: 10-06-2021 End: 10-06-2021 Patient encounter procedure [facility] Start: 09-17-2021 End: 09-17-2021 Emergency department patient visit Dr. Yolis Gibson Work Phone: [facility]Emergency Department Start: 09-15-2021 End: 09-15-[address] Yolis Gibson Work Phone: [facility]Laboratory Start: 09-07-2021 End: 09-07-[address] Yolis Gibson Work Phone: [facility] Start: 02-02-2021 End: 02-02-2021 ambulatory [facility] Start: 02-02-2021 End: 02-02-2021 Office outpatient visit 25 minutes Lino Lo CNP Work Phone: [facility] Comment on above: Wheeze (Primary Dx); Sore throat; Cough; Lab test negative for COVID-19 virus; Acute rhinosinusitis; Lower respiratory infection Start: 01-27-2020 End: 01-31-2020 Patient encounter procedure [facility] Start: 10-05-2019 End: 10-05-2019 Emergency department patient visit [facility] Start: 10-05-2019 End: 10-05-2019 Emergency department patient visit [facility] Work Phone: [facility] Emergency Department Comment on above: Laceration of right little finger without foreign body without damage to nail, initial encounter (Primary Dx) Start: 03-14-2019 End: 03-18-2019 Patient encounter procedure SONIA N [place] Start: 07-31-2018 Office outpatient vi sit 15 minutes Cayla Ramirez Other [facility] Office Start: 07-29-2018 End: 07-30-2018 Patient encounter procedure EFE REISEDER Facility:[facility] Start: 07-12-2017 Office outpatient vi sit 25 minutes Efe Sotelo Other [facility] Office Start: 07-10-2017 End: 07-11-2017 Ambulatory EFE SOTELO Facility:[facility] Start: 01-18-2017 Office consultation new/estab patient 80 min Efe Sotelo Other [facility] Office Procedures Date Procedure Procedure Detail Performing Clinician Start: 08-12-2024 Us lmtd joint/oth no nvasc xtr strux r-t w/img Shari Rowe MD Work Phone: Start: 03-05-2024 Pelvic echography No Pr imary Care Physician Start: 05-18-2023 Bilateral mammography N o Primary Care Physician Start: 05-03-2023 Ultrasonography of limb No Primary Care Physician Start: 02-01-2023 Pelvic echography No Pr imary Care Physician Start: 02-01-2023 Transvaginal echography No Primary Care Physician Start: 03-09-2022 Ultrasound scan for growth No Primary Care Physician Start: 09-17-2021 Transvaginal obstetr ic ultrasonography Dr. Yolis Gibson Work Phone: Start: 02-02-2021 Sars-cov-2 detection by dna/rna Lino Lo CNP Work Phone: Start: 07-31-2018 Doc meds verified w/pt or re Cayla Schworm Start: 07-12-2018 Assay of prolactin Wend i Schworm Start: 07-12-2017 Doc meds verified w/pt or re Cayla Schworm Start: 06-18-2017 Assay of prolactin Wend i Schworm Start: 01-18-2017 Doc meds verified w/pt or re Cayla Schworm Group B Streptococcu s Culture No Primary Care Physician Urine culture Dr. Yolis Robles Work Phone: Urine culture No Primary Car e Physician Plan of Treatment Date Care Activity Detail Author Start: 01-20-2032 Urine microalbumin profile DTaP,Tdap,Td Vaccine (7 - Td or Tdap) [facility] Start: 02-24-2025 End: 02-24-2025 Patient encounter procedure 02/24/2025 10:45 AM EST Office Visit [facility] SURGERY DEPARTMENT 1 [facility] 3rd Floor [place], [place] [id number] Shari Rowe MD [address] [place], [place] [phone] (Fax) 6 MO F/U [facility] DEPARTMENT Comment on above: 6 MO F/U Start: 10-20-2024 Influenza vaccination [facility] Start: 08-19-2024 End: 08-19-2024 Patient encounter procedure 08/19/2024 1:45 PM EDT Office Visit [facility] SURGERY DEPARTMENT 1 [facility] 3rd [place], [place] [id number] Shari Rowe MD [address] [place], [place] [phone] (Fax) Post Op WLE [facility] DEPARTMENT Comment on above: Post Op WLE Start: 08-12-2024 End: 08-12-2024 Patient encounter procedure 08/12/2024 9:30 AM EDT Appointment Radiology [address] [place] [address] US LT AXILLA Mass of left axilla [R22.32] *SCHEDULED W/ COLESIA IN OFFICE Radiology Comment on above: US LT AXILLA Mass of left axilla [R22.32] *SCHEDULED W/ COLESIA IN OFFICE Start: 08-06-2024 End: 08-06-2024 Admission to same day surgery center 08/06/2024 9:00 AM EDT - 08/06/2024 10:45 AM EDT Surgery [facility] 1 [place] [address] Shari Rowe MD [address] [place], [place] [phone] EXCISION MALIGNANT LESION LEGS 2.1-3.0 CM [facility] Comment on above: EXCISION MALIGNANT L ESION LEGS 2.1-3.0 CM Start: 08-06-2024 End: 08-06-2024 Excision mal lesion trunk/arm/leg 2.1-3.0 cm EXCISION MALIGNANT LESION LEGS 2.1-3.0 CM Malignant melanoma of leg, left (HCC) 08/06/2024 9:00 AM EDT [facility] Start: 08-06-2024 Subsequent hospital visit by physician 08/06/2024 9:00 AM EDT Hospital Encounter [facility] [address] [place] [address] Shari Rowe MD [address] [place], [place] [phone] Malignant melanoma of leg, left (HCC) [C43.72] [facility] Comment on above: Malignant melanoma o f leg, left (HCC) [C43.72] Start: 06-19-[address] [facility] Work Phone: Start: 10-21-2023 Covid-19 Vaccine ( season) Covid-19 Vaccine () [facility] Start: 10-21-2023 Covid-19 Vaccine ( season) Covid-19 Vaccine () [facility] Start: 06-11-2023 End: 06-11-2023 Patient encounter procedure 06/11/2023 Office Visit Endocrinology, Diabetes & Metabolism Jude Carvajal MD [address] [place] [id number] [facility] Start: 03-18-2022 Patient discharge [facility] Start: 03-17-2022 Administration of medication [facility] Start: 03-17-2022 Application of ice collar, cap or bag [facility] Start: 03-17-2022 Catheterization of vein [facility] Start: 03-17-2022 Introduction of urin juan catheter [facility] Start: 03-17-2022 Measuring intake and output [facility] Start: 03-17-2022 Notification of physician [facility] Start: 03-17-2022 Procedure discontinued [facility] Start: 03-17-2022 Provision of activit y privileges [facility] Start: 03-17-2022 Vital signs measurements [facility] Start: 03-17-2022 [facility] Start: 03-17-2022 [facility] Start: 03-16-2022 End: 03-16-2022 Admission procedure [facility] Start: 03-16-2022 Streptococcus agalac tiae [Presence] in Unspecified specimen by Organism specific culture [facility] Start: 10-20-2021 Influenza vaccination INFLUENZA VACC INE (#1) [facility] Start: 09-17-2021 [facility] Work Phone: Start: 02-03-2021 Influenza vaccination Sequenti al Influenza Vaccine (#1) [facility] Comment on above: Postponed from 10/20 (Patient Ill Today) Start: 01-05-2021 COVID-19 VACCINE (3 - Booster for Pfizer series) COVID-19 VACCINE (3 - Booster for Pfizer series) [facility] Start: 10-21-2019 Influenza vaccinatio n given Sequential Influenza Vaccine (#1) [facility] Start: 08-01-[address] [facility] Start: 10-03-2012 Screening for malign ant neoplasm of cervix [facility] Start: 10-03-2010 Hepatitis B Vaccine (1 of 3 - 19+ 3-dose series) Hepatitis B Vaccine (1 of 3 - 19+ 3-dose series) [facility] Start: 10-03-2010 Third diphtheria, tetanus and acellular pertussis (DTaP) vaccination TDAP (ADULT) [facility] Start: 10-03-2010 Urine microalbumin profile DTaP,Tdap,Td Vaccine (1 - Tdap) [facility] Start: 10-03-2009 Anxiety Screening Anxiety Screening [facility] Start: 10-03-2009 Depression Screening Depression Scre celi [facility] Start: 10-03-2009 Hepatitis C antibody , confirmatory test Hepatitis C Screening [facility] Start: 10-03-2009 Hepatitis C screening Hepatitis C Sc reening [facility] Start: 10-03-2009 HIV screening HIV Screening [facility] Start: 10-03-2006 HIV screening [facility] Start: 2003 Depression screening using PHQ-9 (Patient Health Questionnaire 9) score Depression Screening (PHQ-2/9) [facility] Start: 10-03-1994 History and physical examination, annual for health maintenance Wellness Visit [facility] Start: 1991 Hepatitis C screening HEPATITI S C VIRUS SCREENING [facility] Start: 1991 Screening for malign ant neoplasm of cervix Pap Smear [facility] Start: 1991 Tetanus vaccination [facility] Bacteria identified in Urine by Culture Urine Culture [facility] Work Phone: Group B Streptococcu s Culture Group B Streptococcus Culture [facility] MG Breast - bilatera l Diagnostic [facility] End: 08-24-2025 NM Lymph node Views NM LYMPH NODE IMAGING Radiology Routine Malignant melanoma of left lower extremity including hip (HCC) 1 Occurrences starting 07/25/2024 until 08/24/2025 [facility] Work Phone: Comment on above: 1 Occurrences starti ng 07/25/2024 until 08/24/2025 Patient Education ED Possible Miscarriage ... ED CYSTITIS Female Adult [facility] Work Phone: Patient referral [facility] Work Phone: Prolactin measurement [facility] Streptococcus pyogen es Ag [Presence] in Throat by Rapid immunoassay [facility] End: 08-21-2025 US Axilla - left US AXILLA ONLY LEFT Radiology Routine Mass of left axilla 1 Occurrences starting 07/22/2024 until 08/21/2025 [facility] Work Phone: Comment on above: 1 Occurrences starti ng 07/22/2024 until 08/21/2025 US Pelvis [facility] US Pelvis transvaginal [facility] Immunizations Immunization Date Immunization Notes Care Provider Fa cilipablito 01-19-2022 tetanus toxoid, redu viktoria diphtheria toxoid, and acellular pertussis vaccine, adsorbed No Primary Care Physician [facility] 12-29-2021 influenza, injectabl e, quadrivalent, preservative free No Primary Care Physician [facility] 12-29-2021 influenza, seasonal, injectable GABY VANN [facility] 12-29-2021 influenza virus vaccine, unspecified formulation 2 Work Phone: [facility] 11-29-2017 influenza virus vaccine, unspecified formulation Jude Carvajal MD Work Phone: [facility] Payers Date Payer Category Payer Self-pay 2023 [facility] PPO Member Subscriber Plan / Payer (Effective 2023-Present) Name: Everett Mccurdy Relation to Subscriber: Self Name: Everett Mccurdy Payer ID: [id number] (NAIC) Type: PPO Address: [facility] [address] [place] [id number] 2023 Unknown [id number] 2022 Unknown [id number] 2021 Unknown [id number] 2018 Unknown [employer] PPO [id number] 2018-Present [id number]. [id number] 2017 Unknown 1991 Unknown [id number] 2.16.840.1.511141.3.579.2. 419 1991 Unknown [id number] 2.16.840.1.757782.3.579.2. 903 1991 Unknown [id number] 2.16.840.1.278949.3.579.2. 903 1991 Unknown [id number] 2.16.840.1.812205.3.579.2. 903 1991 Unknown [id number] 2..840.1.405445.3.579.2. 903 1991 Unknown [id number] 2..840.1.450294.3.579.2. 983 1991 Unknown [id number] 2.840.1.027444.3.579.2. 983 1959 Unknown [id number] Unknown [id number] 2.840.1.552919.3.441 Unknown [id number] Unknown [id number] Unknown [id number] 2.840.1.140710.3.579.2. 462 Unknown [id number] 2.840.1.429539.3.579.2. 462 Unknown [id number] 2.840.1.680622.3.579.2. 462 Unknown [id number] 2.840.1.538515.3.579.2. 462 Unknown [id number] 2.840.1.864043.3.579.2. 462 Unknown [id number] 2..840.1.802518.3.579.2. 462 Unknown [id number] 2.16.840.1.096482.3.579.2. 462 Unknown [id number] 2.840.1.483388.3.579.2. 462 Unknown [id number] 2.840.1.272517.3.579.2. 462 Unknown [id number] 2.16.840.1.730695.3.579.2. 462 Unknown [id number] 2.16.840.1.041774.3.579.2. 462 Unknown [id number] 2.16.840.1.215436.3.579.2. 462 Unknown [id number] 2.16.840.1.979728.3.579.2. 462 Unknown [id number] 2.16.840.1.995721.3.579.2. 462 Unknown [id number] 2.16.840.1.408930.3.579.2. 462 Social History Date Type Detail Facility Start: [facility] Start: Alcohol [facility] Start: 1 cup/day [employer] Start: 10-05-2019 End: 07-22-2024 Tobacco smoking status MOIS Never smoker [facility] Start: 10-05-2019 End: 07-22-2024 Tobacco use and exposure Never used [facility] Start: 10-05-2019 End: 02-02-2021 Alcohol intake Lifetime non-drinker (finding) [facility] Start: 10-05-2019 History SDOH Alcohol Frequency 1 [facility] Start: 1990 Sex Assigned At Not on file [facility] Exposure to SARS-CoV -2 (event) Not sure [facility] Start: 09-17-2021 End: 05-07-2023 Tobacco smoking status NHIS Unknown if ever smoked [facility] Start: 1990 Sex Assigned At Female [facility] Start: 05-07-2023 Tobacco smoking stat us MOIS Ex-smoker (finding) [facility] Start: 05-07-2024 Sex Female (finding) [facility] Start: 07-22-2024 End: 08-19-2024 Alcoholic beverage intake Ex-drinker (finding) [facility] Start: 07-22-2024 End: 08-19-2024 History of Social function [facility] Start: 07-22-2024 End: 08-19-2024 Tobacco use panel [facility] National Score (1-10 0), lower number is lower risk 54 [facility] Goals Date Patient Goal Desired Activity /State Clinical Notes 02-02-2021 to 08-19-2024 Shari Rowe MD - 08/19/2024 1:45 PM EDTCRose Mary lorenzana RDMS - 08/12/2024 9:15 AM EDTTelephone Encounter - JuneJose Martin MA - 07/23/2024 10:44 AM EDT Note Date & Type Note Facility 08-19-2024 History of Presen t illness Narrative Shari Rowe MD Surgical Oncology 1 [facility], [address] [place] [address] Name: Everett Mccurdy Age: [age] year old Sex: Everett Mccurdy : 1990 Referring Provider: No ref. provider found Subjective CHIEF COMPLAINT: Postop visit ONCOLOGIC HISTORY: 07/04/2024: Skin biopsy: Melanoma of left posterior thigh 08/06/2024: WLE Anatomic Location: L posterior thigh Breslow Depth: 0.6mm Ulceration: No Mitosis: 0/mm2 Almo Lymph Node Biopsy: No Number of positive SLN: N/A HISTORY OF PRESENT ILLNESS: Ms. Mccurdy is a 33 year old female who presents for postop visit. I personally reviewed Tobacco Allergies Meds Problems Med Hx Surg Hx Fam Hx Objective PHYSICAL EXAM: BP 138/80 Pulse 74 Ht 6' 1 (1.85m) Wt 201 lb 14.4 oz (91.6kg) SpO2 99% LMP 06/10/2024 BMI 26.64 kg/(m^2). Physical Exam Constitutional: Appearance: Normal appearance. She is normal weight. HENT: Head: Normocephalic and atraumatic. Mouth/Throat: Mouth: Mucous membranes are moist. Eyes: Extraocular Movements: Extraocular movements intact. Cardiovascular: Rate and Rhythm: Normal rate. Pulmonary: Effort: Pulmonary effort is normal. No respiratory distress. Musculoskeletal: General: Normal range of motion. Cervical back: Normal range of motion. Skin: General: Skin is warm and dry. Comments: Incisions well healing without surrounding erythema or drainage Neurological: General: No focal deficit present. Mental Status: She is alert and oriented to person, place, and time. Mental status is at baseline. Psychiatric: Mood and Affect: Mood normal. Behavior: Behavior normal. Thought Content: Thought content normal. Judgment: Judgment normal. DATA: Pathology Report: FINAL DIAGNOSIS A. Skin, posterior left leg, wide local excision: - Focal residual melanoma in situ adjacent to dermal scar (see comment). - Margins are negative for melanoma in situ. Assessment/Plan Ms. Mccurdy is a 33 year old female s/p WLE on 08/06/2024; recovering well. 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 Author Type: Physician Type: Progress Notes Filed: 08/19/2024 14:11 Note Text: Shari Rowe MD Surgical Oncology 1 [facility], [address] [place] [id number] Name: Everett Mccurdy Age: [age] year old Sex: Everett Mccurdy : 1990 Referring Provider: No ref. provider found Subjective CHIEF COMPLAINT: Postop visit ONCOLOGIC HISTORY: 07/04/2024: Skin biopsy: Melanoma of left posterior thigh 08/06/2024: WLE Anatomic Location: L posterior thigh Breslow Depth: 0.6mm Ulceration: No Mitosis: 0/mm2 Almo Lymph Node Biopsy: No Number of positive SLN: N/A HISTORY OF PRESENT ILLNESS: Ms. Mccurdy is a 33 year old female who presents for postop visit. I personally reviewed Tobacco Allergies Meds Problems Med Hx Surg Hx Fam Hx Objective PHYSICAL EXAM: BP 138/80 Pulse 74 Ht 6' 1 (1.85m) Wt 201 lb 14.4 oz (91.6kg) SpO2 99% LMP 06/10/2024 BMI 26.64 kg/(m2). Physical Exam Constitutional: Appearance: Normal appearance. She is normal weight. HENT: Head: Normocephalic and atraumatic. Mouth/Throat: Mouth: Mucous membranes are moist. Eyes: Extraocular Movements: Extraocular movements intact. Cardiovascular: Rate and Rhythm: Normal rate. Pulmonary: Effort: Pulmonary effort is normal. No respiratory distress. Musculoskeletal: General: Normal range of motion. Cervical back: Normal range of motion. Skin: General: Skin is warm and dry. Comments: Incisions well healing without surrounding erythema or drainage Neurological: General: No focal deficit present. Mental Status: She is alert and oriented to person, place, and time. Mental status is at baseline. Psychiatric: Mood and Affect: Mood normal. Behavior: Behavior normal. Thought Content: Thought content normal. Judgment: Judgment normal. DATA: Pathology Report: FINAL DIAGNOSIS A. Skin, posterior left leg, wide local excision: - Focal residual melanoma in situ adjacent to dermal scar (see comment). - Margins are negative for melanoma in situ. Assessment/Plan Ms. Mccurdy is a 33 year old female s/p WLE on 08/06/2024; recovering well. -Follow up in 6 months; will keep closer surveillance schedule given young age -Discussed skin protection and regular q3m Dermatology visits Cancer Staging Malignant melanoma of left lower extremity including hip (HCC) Staging form: Melanoma of the Skin, AJCC 8th Edition - Pathologic: Stage IA (pT1a, cN0, cM0) - Signed by Shari Rowe MD on 08/18/2024 Shari Rowe MD 08/19/2024 1410 [facility] 08-12-2024 History of Presen t illness Narrative Radiology Service Progress Note PATIENT NAME: Everett Mccurdy DATE OF SERVICE: August 12, 2024 TIME: 10:41 AM PATIENT IDENTITY VERIFICATION COMPLETED USING TWO (2) IDENTIFIERS: Name and Date of confirmed by patient verbally. FALL SCREENING: Has the patient had 2 falls in the last year or 1 fall with injury or currently using an Ambulatory Assistive Device (Walker, Cane, Wheelchair, Crutches, etc.)? No PATIENT GENDER DATA: Assigned female at . status: : No status: NO. PATIENT RELEVANT IMPLANT DATA REVIEWED: Not Applicable PATIENT PRESENTS WITH AN IMPLANTABLE OR ATTACHED RESIDENTIAL HOUSEKEEPER: No RADIOLOGY DEPARTMENT: Ultrasound PERIPHERAL IV DATA: Not applicable SIGNED BY: Rose Mary Paredes RDMS August 12, 2024 10:41 AM documented in this encounter [facility] 08-12-2024 Note HNO ID: [id number] Author: ROSE MARY PAREDES RDMS Service: ? Author Type: Public Relations Assistant Type: Progress Notes Filed: 08/12/2024 10:41 Note Text: Radiology Service Progress Note PATIENT NAME: Everett Mccurdy DATE OF SERVICE: August 12, 2024 TIME: 10:41 AM PATIENT IDENTITY VERIFICATION COMPLETED USING TWO (2) IDENTIFIERS: Name and Date of confirmed by patient verbally. FALL SCREENING: Has the patient had 2 falls in the last year or 1 fall with injury or currently using an Ambulatory Assistive Device (Walker, Cane, Wheelchair, Crutches, etc.)? No PATIENT GENDER DATA: Assigned female at . status: : No status: NO. PATIENT RELEVANT IMPLANT DATA REVIEWED: Not Applicable PATIENT PRESENTS WITH AN IMPLANTABLE OR ATTACHED RESIDENTIAL HOUSEKEEPER: No RADIOLOGY DEPARTMENT: Ultrasound PERIPHERAL IV DATA: Not applicable SIGNED BY: Rose Mary Paredes RDMS August 12, 2024 10:41 AM [facility] 07-23-2024 Telephone encounter Note Went over surgery information with patient by phone. Pt understood where to check in and the prep for surgery, date and time. cmay [facility] 07-22-2024 History and physical note Images from the original note were not included. Shari Rowe MD Surgical Oncology 1 [facility], [address] [place] [address] Name: Everett Mccurdy Age: [age] year old Sex: Everett Mccurdy : 1990 Referring Provider: Sage Dimas PA-C Subjective CHIEF COMPLAINT: Melanoma ONCOLOGIC HISTORY: 07/04/2024: Melanoma Anatomic Location: L posterior thigh Breslow Depth: 0.6mm Ulceration: No Mitosis: 0/mm2 HISTORY OF PRESENT ILLNESS: Ms. Mccurdy is a 33 year old female who presents for initial evaluation for melanoma. Is currently 6w but experiencing bleeding today. New Skin Lesion: Yes Changing size/shape: No Bleeding: No Other concerning lesions/nodules: Yes Left axillary subcutaneous mass, slowly growing. Previously examined with US and Mammo but no definitive diagnosis Prior history of melanoma: No History of sunburns:Yes History of tanning bed use: Yes Family history of Melanoma: No I personally reviewed Tobacco Allergies Meds Problems Med Hx Surg Hx Fam Hx Objective PHYSICAL EXAM: BP 122/80 Ht 6' 1 (1.85m) Wt 200 lb (90.7kg) BMI 26.39 kg/(m^2). Physical Exam Constitutional: General: She is not in acute distress. Appearance: Normal appearance. HENT: Head: Normocephalic and atraumatic. Mouth/Throat: Mouth: Mucous membranes are moist. Eyes: Extraocular Movements: Extraocular movements intact. Cardiovascular: Rate and Rhythm: Normal rate. Pulmonary: Effort: Pulmonary effort is normal. No respiratory distress. Abdominal: General: Abdomen is flat. Palpations: Abdomen is soft. Musculoskeletal: General: Normal range of motion. Cervical back: Normal range of motion. Lymphadenopathy: Cervical: No cervical adenopathy. Upper Body: Right upper body: No supraclavicular or axillary adenopathy. Left upper body: No supraclavicular or axillary adenopathy. Lower Body: No right inguinal adenopathy. No left inguinal adenopathy. Comments: Left axillary soft tissue subcutaneous nodule in upper arm/axillary junction Skin: General: Skin is warm and dry. Comments: Biopsy site without residual pigmentation Neurological: General: No focal deficit present. Mental Status: She is alert and oriented to person, place, and time. Mental status is at baseline. Psychiatric: Mood and Affect: Mood normal. Behavior: Behavior normal. Thought Content: Thought content normal. Judgment: Judgment normal. DATA: Pathology Report: Left Proximal Posterior Thigh: Melanoma Histologic type: superficial spreading Maximum Tumor thickness: 0.6mm Ulceration: Not identified Margins: positive Peripheral: involved by melanoma in situ Deeps: Uninvolved Mitotic Index: 0/mm2 Microscopic satellites: not identified Lymphovascular invasion: not identified Perineural invasion: not identified Regression: not identified Pathologic stage: pT1a Assessment/Plan Ms. Mccurdy is a 33 year old female with melanoma of left thigh. 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 Shari Rowe MD Surgical Oncology 1 [facility], [address] [place] [address] Name: Everett Mccurdy Age: [age] year old Sex: Everett Mccurdy : 1990 Referring Provider: Sage Dimas PA-C Subjective CHIEF COMPLAINT: Melanoma ONCOLOGIC HISTORY: 07/04/2024: Melanoma Anatomic Location: L posterior thigh [place] Depth: 0.6mm Ulceration: No Mitosis: 0/mm2 HISTORY OF PRESENT ILLNESS: Ms. Mccurdy is a 33 year old female who presents for initial evaluation for melanoma. Is currently 6w but experiencing bleeding today. New Skin Lesion: Yes Changing size/shape: No Bleeding: No Other concerning lesions/nodules: Yes Left axillary subcutaneous mass, slowly growing. Previously examined with US and Mammo but no definitive diagnosis Prior history of melanoma: No History of sunburns:Yes History of tanning bed use: Yes Family history of Melanoma: No I personally reviewed Tobacco Allergies Meds Problems Med Hx Surg Hx Fam Hx Objective PHYSICAL EXAM: BP 122/80 Ht 6' 1 (1.85m) Wt 200 lb (90.7kg) BMI 26.39 kg/(m^2). Physical Exam Constitutional: General: She is not in acute distress. Appearance: Normal appearance. HENT: Head: Normocephalic and atraumatic. Mouth/Throat: Mouth: Mucous membranes are moist. Eyes: Extraocular Movements: Extraocular movements intact. Cardiovascular: Rate and Rhythm: Normal rate. Pulmonary: Effort: Pulmonary effort is normal. No respiratory distress. Abdominal: General: Abdomen is flat. Palpations: Abdomen is soft. Musculoskeletal: General: Normal range of motion. Cervical back: Normal range of motion. Lymphadenopathy: Cervical: No cervical adenopathy. Upper Body: Right upper body: No supraclavicular or axillary adenopathy. Left upper body: No supraclavicular or axillary adenopathy. Lower Body: No right inguinal adenopathy. No left inguinal adenopathy. Comments: Left axillary soft tissue subcutaneous nodule in upper arm/axillary junction Skin: General: Skin is warm and dry. Comments: Biopsy site without residual pigmentation Neurological: General: No focal deficit present. Mental Status: She is alert and oriented to person, place, and time. Mental status is at baseline. Psychiatric: Mood and Affect: Mood normal. Behavior: Behavior normal. Thought Content: Thought content normal. Judgment: Judgment normal. DATA: Pathology Report: Left Proximal Posterior Thigh: Melanoma Histologic type: superficial spreading Maximum Tumor thickness: 0.6mm Ulceration: Not identified Margins: positive Peripheral: involved by melanoma in situ Deeps: Uninvolved Mitotic Index: 0/mm2 Microscopic satellites: not identified Lymphovascular invasion: not identified Perineural invasion: not identified Regression: not identified Pathologic stage: pT1a Assessment/Plan Ms. Mccurdy is a 33 year old female with melanoma of left thigh. 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 Pt understood where to check in and the prep for surgery, date and time. cmay documented in this encounter [facility] 06-19-2024 Evaluation note Diagnosis Onset Date Resolution Axillary lump acute June 19 10:27am Pituitary tumor acute June 19, 2024 10:27am Encounter for routine gynecological examination noneactive June 19, 2024 10:27am Complete acute July 7:45am Acute pharyngitis acute August 9:06am Hives acute August 22, 2024 9:06am [facility] [employer] Work Phone: 1(494) 221-204103-12-2025 Evaluation note* Diagnosis Onset Date Resolution Status Admit Date Menorrhagia with regular cycle acute April 30, 2024 10:48am Acute sinusitis resolved May 11:46am Axillary lump acute June 19 10:27am Pituitary tumor acute June 19, 2024 10:27am Encounter for routine gynecological examination noneactive June 10:27am Complete acute July 7:45am [facility] [employer] Work Phone: 1(138) 874-278602-10-2025 Evaluation note* Diagnosis Onset Date Resolution Status Admit Date Prolactinoma, benign chronic Febr ua2024 8:44am Menorrhagia with regular cycle acute April 30, 2024 10:48am Acute sinusitis resolved May 11:46am Axillary lump acute June 19 10:27am Pituitary tumor acute June 19, 2024 10:27am Encounter for routine gynecological examination noneactive June 10:27am Complete acute July 7:45am [facility] Work Phone: [phone] Evaluation note* Diagnosis Onset Date Resolution Status Admit Date Menorrhagia with regular cycle acute February 25 8:33am Prolactinoma, benign chronic Febr uary 2024 8:44am Menorrhagia with regular cycle acute April 30, 2024 10:48am [facility] Work Phone: [phone] NotePap Smear Specimen AdequacyMarch 2023 5:16pmComment.Satisfactory for evaluation. No endocervical component is identified.[facility] A#[id number] General HospitalComasc[facility] on above:Satisfactory for evaluation. No endocervical component is identified. 05-07-2023 NotePap Smear Specimen AdequacyMarch 2023 5:16pmComment. Satisfactory for evaluation. No endocervical component is identified.[facility] A#[id number] General HospitalComment on above:Satisfactory for evaluation. No endocervical component is identified.05-07-2023 NotePap Smear Specimen AdequacyMarch 2023 5:16pmComment.Satisfactory for evaluation. No endocervical component is identified.[facility] A#[id number] General HospitalComasc[facility] on above:Satisfactory for evaluation. No endocervical component is identified.05-11-2022 History of Present illness Narrative* Elicia Malave - 05/11/2022 10:00 AM EDT Nurse Note: Review of Systems Constitutional: Negative for appetite change, fatigue and unexpected weight change. Eyes: Negative for visual disturbance. Cardiovascular: Negative for palpitations and leg swelling. Gastrointestinal: Negative for constipation, diarrhea, nausea and vomiting. Endocrine: Negative for cold intolerance and heat intolerance. Neurological: Negative for dizziness, weakness and headaches. Psychiatric/Behavioral: Positive for sleep disturbance. The patient is nervous/anxious. Nursing Assessment: Physical Exam * Jude Carvajal MD - 05/11/2022 10:00 AM EDT History of Present Illness Prolactinoma: This is a followup visit to the office. States she was experiencing amenorrhea and galactorrhea, was diagnosed with pituitary adenoma in 2015, apparently a pure prolactinoma, measuring 0.6 x 0.9 mm in 2016. Was started on cabergoline therapy which she has been taking since 2016. A trial off of dopamine agonist therapy in 2016 resulted in recurrence of symptoms and elevated prolactin. Has been taking cabergoline 0.5 mg twice a week since 2016 without discontinuation until her in March of 2021. Menses now normal. No further galactorrhea. Previous doctor was Dr. Efe Sotelo in [place]. Current blood work demonstrates normal IGF-I, normal T4/T3, prolactin = 7.2. Last MRI from March of 2021 demonstrated a decrease in the hypoenhancement within the right-sided pituitary down to 3.3 x 5.9 x 5.5 mm. She now has a 3-month-old , she is breast-feeding, not taking cabergoline. Current prolactinof 99 ng/mL. No headaches. Normal cortisol/IGF-1 level. She feels well. Review of Systems Vitals: Blood pressure 142/80, pulse 80, height 1.854 m (6' 0.99), weight 93.1 kg (205 lb 3.2 oz),SpO2 98 %, currently . Physical Exam Constitutional: General: She is not in acute distress. Appearance: She is not diaphoretic. HENT: Head: Normocephalic. Nose: Nose normal. Cardiovascular: Rate and Rhythm: Normal rate and regular rhythm. Pulmonary: Effort: Pulmonary effort is normal. No respiratory distress. Skin: General: Skin is warm and dry. Neurological: Mental Status: She is alert and oriented to person, place, and time. Psychiatric: Judgment: Judgment normal. Assessment and Plan Prolactinoma: As she is breast-feeding, we will continue off cabergoline therapy. She does have a desire for another child. Discussed with patient that cabergoline maybe restarted after breast-feeding. Cabergoline could potentially be needed to restore fertility depending on her prolactin levels. Okay to stay off cabergoline as long as he is not having any compressive symptoms/headache, etc.. Would avoid MRI this year, as we would expect enlargement of the pituitary following her . Mayconsider repeat MRI 1 year after breast-feeding discontinuation, or if increasing headaches. She agrees to contact us if she develops headaches, otherwise would follow up in 1 year. documented in this [facility]01-28-[address] Guerrero [facility] March 18, 2022 9:26am Note Date/Time March 18, 2022 9 :26am [facility] Medical Records Department [address] [place] [address] Progress Note - OBGYN 03/18/22 0924 MR#: [id number] Acct: [id number] Name: EVERETT CAROLINA Rep #:[id number] : 1990 31 From: Marcio Guerrero MD PCP: Care Physician,No Primary Status :ADM IN Location: [place] [address] Subjective Subjective No overnight complaints. Denies headache, vision change, chest pain, shortness of breath, nausea vomit, right upper quadrant pain. Objective Data Objective Data Vital Signs: Vital Signs Temp Pulse Resp BP Pulse Ox O2 Del Method 98.2 F 55 L 17 130/76 H 98 Room Air 03/18/22 05:00 03/18/22 05:00 03/18/22 05:00 03/18/22 05:00 03/17/22 08:52 03/17/22 08:52 Oxygen Delivery Method Room Air Weight: 229 lb 0.964 oz Body Mass Index (BMI) 30.2 Intake & Output: Intake and Output for Last 24 Hours 03/16/22 03/17/22 03/18/22 23:59 23:59 23:59 Intake Total 112.94 / 112.94 1792.06 / 1792.06 Output Total 100 / 100 2450 / 2450 Balance 12.94 / 12.94 -657.94 / -657.94 Lab / Micro Data Result Diagrams: 03/16/22 17:55 03/16/22 17:55 Micro: Microbiology 03/16/22 13:45 Genital vaginal Group B Streptococcus Culture - Preliminary 03/16/22 12:15 Urine, Midstream Urine Culture - Final Mixed Gram Positive Organisms Physical Exam Const alert, oriented x3, no apparent distress, average body habitus, healthy appearing and well nourished HEENT normocephalic and moist oral mucous membranes Eyes PERRL Neck full ROM Resp normal respiratory effort, no retractions and no use of accessory muscles GI GI Narrative: Soft, nontender, uterus firm and below umbilicus Extremity normal to inspection and full ROM Neuro moves all extremities, no focal motor deficits and deep tendon reflexes 2+ bilaterally Motor Exam: clonus absent Psych mental status grossly normal, affect normal, speech normal and activity/motor behavior normal Assessment & Plan (1) Vaginal delivery: PLAN: day 1 status post vacuum-assisted vaginal delivery for nonreassuring heart tones. Breast-feeding. Pain well controlled. Preeclampsia without severe features, asymptomatic. Blood pressures well controlled on no medication. Okay to discharge home for blood pressure check in1 week 03/18/22 09 <Electronically signed by Marcio Guerrero MD> Cosigner Signature (if applicable): CC: ~ Signed [facility] Work Phone: 1(813) 757-179901-28-[address] Guerrero [facility] March 18, 2022 9:24am Note Date/Time March 17, 2022 5 :34am [facility] Medical Records Department [address] [place] [address] Instructions for Home/Discharge Instructions 03/17/22 0534 MR#: [id number] Acct: [id number] Name: EVERETT CAROLINA Rep #:[id number] : 1990 31 From: Nikki gan MD PCP: Care Physician,No Primary Status :ADM IN Discharge Instructions Diet Discharge Diet: No restrictions Activity Discharge Activity: Return to Normal Activity, May Drive, May Shower and May Take a Tub Bath (in 4 weeks) May resume sexual activity in: 6-8 weeks (after seen by OB provider) Weight Bearing Status: Full weight bearing Lifting Restrictions: none Dressing / Incision Call your doctor if you observe: Fever of 101 or Higher, Inability to urinate, Using more than 1 pad per hour (for more than 2 hours in a row or more), Shortness of breath, Dizziness, Chest pain and - (headache not controlled with tylenol, change in vision) Follow Up Care When: in 6 weeks for visit, call the office to make the appointment. If you had elevated blood pressures call the office to be seen within 1 week. Test Results: Test results from this visit will be discussed in further detail at your follow- up appointment, if applicable. Discharge Plan Admission Admit Date/Time: 03/16/22 18:55 Attending Provider: Nikki Monroy Primary Care Provider: Care Physician,No Primary Consulting Providers: Yolis Gibson Discharge Orders/Prescriptions Prescriptions: Continued fluticasone propionate 50 mcg/actuation spray,suspension 1 spray intranasal DAILY Rx Instructions: administer into each nostril PNV #[id number] acid-dha 35 mg iron-5 mg iron-1 mg capsule 1 cap PO DAILY sertraline [Zoloft] 25 mg tablet 25 mg PO DAILY loratadine [Claritin] 10 mg tablet 10 mg PO DAILY famotidine [Pepcid] 20 mg tablet 20 mg PO DAILY Referrals / Follow Up: Care Physician,No Primary [Primary Care Provider] - Disposition Disposition (needs filled in before D/C Order can be placed): Home, Self Care 03/17/22 0536<Electronically signed by Nikki Monroy MD>Nikki Monroy MD CC: Dr. Yolis Gibson DO; No Primary Care Physician ~ Signed ADDENDUM by Dr. Marcio Guerrero MD on 03/18/22 at 0924 Patient seen and examined today 03/18/2022. No changes to discharge instructions, suggested 1 week blood pressure check 03/18/22 0924<Electronically signed by Marcio Guerrero MD>Marcio Gurerero MD cc: Dr. Yolis Gibson DO; No Primary Care Physician ~* Signed [facility] Work Phone: 1(952) 554-864301-27-2023 Procedure [facility] 03-17-2022 History and physical note Author Dr. Monroy [facility] March 17, 2022 2:46am Note Date/Time March 17, 2022 2 :43am [facility] Medical Records Department [address] [place] [address] H&P Exam - MED ASST 03/17/22 0242 MR#: [id number] Acct: [id number] Name: EVERETT CAROLINA Rep #:[id number] : 1990 31 From: Nikki gan MD PCP: Care Physician,No Primary Status :ADM IN Location: [place] [id number] HPI - General General Date of Admission: 03/16/22 HPI Narrative EVERETT CAROLINA, is a 31 F who presents with elevated bps and proteinuria, irregular ctx. she was closed in the office and is now 3 cm so she is also having contractions. Maternal Data Information MARY Calculator Estimated Delivery Date Method Current WG Current Estimate 04/07/22 Ultrasound #1 37w 0d Other Estimates 04/13/22 LMP (Certain) 36w 1d PFSH PFSH Medical History Anxiety Home Medications fluticasone propionate 50 mcg/actuation nasal spray,suspension 1 spray intranasal DAILY allergies 08/31/21 [History Last Taken 03/14/22 20:00 2 in each nostril] vitamin #56-iron 35 mg and 5 mg-folic acid 1 mg-dha capsule 1 cap PO DAILY 09/07/21 [History Last Taken 03/15/22 20:00 1 tab] sertraline 25 mg tablet (Zoloft) 25 mg PO DAILY anxiety 12/02/21 [History Last Taken 03/15/22 20:00 25 mg] loratadine 10 mg tablet (Claritin) 10 mg PO DAILY allergies 01/19/22 [History Last Taken 03/15/22 20:00 10 mg] famotidine 20 mg tablet (Pepcid) 20 mg PO DAILY acid reflux 03/16/22 [History Last Taken 03/16/22 16:00 20 mg] Allergy/AdvReac Type Severity Reaction Status Date / Time No Known Allergies Allergy Verified 03/16/22 11:22 Surgical History Hx of sinus surgery Social History adopted: No household members: significant other housing: house number of children: 0 current occupational status: employed 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 current occupational exposures/hazards: Yes (formaldehyde) pets and animals: Yes (not managing litter box) pets and animals: cat(s) leisure activities: exercise history of recent travel: No sexually active: Yes Smoking Status: Former smoker quit date: 10/22/13 how long ago did patient quit smokin years second hand exposure: No alcohol intake: former details: socially rare substance use type: does not use well-balanced diet: daily or most days caffeine: No eating out: rarely or never during the past year weight has: remained stable what type of physical activity do you participate in: other details: crossfit frequency: 3-4 times per week duration: 45-60 minutes/day joey/caodaism: None seatbelt use: always do you feel safe at home: Yes additional social history: BF Eric History 1 Elective abortions Hx Para 0 Spontaneous abortions Hx # Term Pregnancies Ectopic pregnancies Hx # Pregnancies Multiple births # of living children Visit Details Expected Delivery Route/Plan Labor Preferences- CB/BF classes: declined labor support person: [] labor intervention preferences: [] pain management options preferred: [] cut cord/dad catch: [] : [] PP control planned: [] discussed possible routes of delivery and associated risks: [] special requests: [] Plans Covid status: discussed Flu vaccine: discussed Tdap vaccine: given Rhogam: na LARC form signed: declined movement and labor precautions reviewed. Problem list reviewed and updated with the most current plan of care details and appropriate orders placed. Relevant counseling for the gestational age provided. Continue routine care and follow up unless otherwise noted in visit notes/problem list details OB Flowsheet Initial Weight: Not Recorded Date -?-?-?-?-?-?-?-?-?-?-?-?- EGA Weight BP Urine Prot -?-?-?-?-?-?-?-?-?-?-?-?- Glucose FHR FuHt Pres Dilation -?-?-?-?-?-?-?-?-?-?-?-?- Effaced St Visit Note 09/07/21 -?-?-?-?-?-?-?-?-?-?-?-?- 9w 5d 187 lb 120/80 -?-?-?-?-?-?-?-?-?-?-?-?- 189 -?-?-?-?-?-?-?-?-?-?-?-?- JV-CRL off by 6 days. MARY changed 10/06/21 -?-?-?-?-?-?-?-?-?-?-?--?- 13w 6d 189 lb 124/82 Negative -?-?-?-?-?-?-?-?-?-?-?-?- Negative 150 -?-?-?-?-?-?-?-?-?-?-?-?- SM- no vb crampi gn discussed effexor medication and discussed weaning and trying an SSRI if desired, hasn't been on an SSRI in the past 11/03/21 -?-?-?-?-?-?-?-?-?-?-?-?- 17w 6d 195 lb 4 oz 118/81 Nega tive -?-?-?-?-?-?-?-?-?-?-?-?- Negative 147 -?-?-?-?-?-?-?-?-?-?-?-?- JV- no lof, vagi nal bleeding, or cramping. rx for reglan and phenergan for traveling to [place]. Plan to take a baby asa on flight. anatomy scan ordered. see cheyanne results. 12/02/21 -?-?-?-?-?-?-?-?-?-?-?-?- 22w 0d 199 lb 135/81 Negative -?-?-?-?-?-?-?-?-?--?-?-?- Negative 145 22 -?-?-?-?-?-?-?-?-?-?-?-?- SM- reviewed US, no vb crmaping declined afp 12/29/21 -?-?-?-?-?-?-?-?-?-?-?-?- 25w 6d 207 lb 122/78 Negative -?-?-?-?-?-?-?-?-?-?-?-?- Negative 164 26 -?-?-?-?-?-?-?-?-?-?-?-?- JV- 3rd [email or web address] labs today, flu shot today. no complaints. 01/19/22 -?-?-?-?-?-?-?-?-?-?-?-?- 28w 6d 215 lb 121/81 Negative -?-?-?-?-?-?-?-?-?-?-?-?- Negative 150 29 -?-?-?-?-?-?-?-?-?-?-?-?- SM- no vb lof go od fm no regular ctx tdap given 02/02/22 -?-?-?-?-?-?-?-?-?-?-?-?- 30w 6d 216 lb 4 oz 121/82 Nega tive -?-?-?-?-?-?-?-?-?-?-?-?- Negative 135 30 -?-?-?-?-?-?-?-?-?-?-?-?- JV- no lof, vagi nal bleeding, or dec fm. no concerns today. rto 2 wks 02/16/22 -?-?-?-?-?-?-?-?-?-?-?-?- 32w 6d 222 lb 6 oz 121/87 Nega tive -?-?-?-?-?-?-?-?-?-?-?-?- Negative 135 33 -?-?-?-?-?-?-?-?-?-?-?-?- SM- no vb lof go od fm no reuglar ctx larc signed 03/02/22 -?-?-?-?-?-?-?-?-?-?-?-?- 34w 6d 223 lb 4 oz 131/85 Nega tive -?-?-?-?-?-?-?-?-?-?-?-?- Negative 140 33 -?-?-?-?-?-?-?-?-?-?--?-?- JV- no lof, vagi nal bleeding, or dec fm. gbs next visit. 03/16/22 -?-?-?-?-?-?-?-?-?-?-?-?- 36w 6d 229 lb 139/88 2+ -?-?-?-?-?-?-?-?-?-?-?-?- Negative 140 35 Cephalic 0 -?-?-?-?-?-?-?-?-?-?-?-?- JV- ultrasound r thowed and shows fl is 4th%. however. will call radiology to confirm. gbs collected. 03/16/22 -?-?-?-?-?-?-?-?-?-?-?-?- 36w 6d 229 lb 0.964 oz 159/ 91 146/92 141/87 151/92 143/87 161/93 151/95 140/90 145/89 144/95 145/86 153/90 151/89 143/89 100 mg/dl (Negative) H -?-?-?-?-?-?-?-?-?-?-?-?- -?-?-?-?-?-?-?-?-?-?-?-?- NST FHR Rate Baby A Baseline: 130 Variability:: Moderate Accelerations:: 15 x 15 Decelerations:: None NST Reactive:: Yes FHR Category:: Category I Uterine Activity:: irregular ROS Constitutional Constitutional: Reports systems reviewed and no addt'l complaints, except as documented Eyes Eyes: Denies change in vision ENT HEENT: Reports systems reviewed and no addt'l complaints, except as documented; Denies headache(s) Cardiovascular Cardiovascular: Reports systems reviewed and no addt'l complaints, except as documented; Denies chest pain or dyspnea Respiratory/Chest Respiratory/Chest: Reports systems reviewed and no addt'l complaints, except as documented Gastrointestinal Gastrointestinal: Reports systems reviewed and no addt'l complaints, except as documented; Denies abdominal pain Genitourinary Genitourinary: Reports systems reviewed and no addt'l complaints, except as documented, contractions Details: present (irregular) and movement Details: present; Denies dysuria or genital lesions Musculoskeletal Musculoskeletal: Reports systems reviewed and no addt'l complaints, except as documented Neurologic Neurologic: Reports systems reviewed and no addt'l complaints, except as documented Endocrine Endocrinology: Reports systems reviewed and no addt'l complaints, except as documented Vital Signs Vital Signs Vital Signs: 03/16/22 18:03 03/16/22 18:03 03/16/22 18:05 Temperature Pulse Rate 64 67 Blood Pressure 159/91 H BP Systolic 159 BP Diastolic 91 Pulse Ox 03/16/22 18:05 03/16/22 18:18 03/16/22 18:18 Temperature Pulse Rate 60 Blood Pressure 146/92 H BP Systolic 146 BP Diastolic 92 Pulse Ox 99 03/16/22 18:33 03/16/22 18:33 03/16/22 18:48 Temperature Pulse Rate 57 L Blood Pressure 141/87 H 151/92 H BP Systolic 141 151 BP Diastolic 87 92 Pulse Ox 03/16/22 18:48 03/16/22 19:03 03/16/22 19:03 Temperature Pulse Rate 62 60 Blood Pressure 143/87 H BP Systolic 143 BP Diastolic 87 Pulse Ox 03/16/22 19:18 03/16/22 19:18 03/16/22 19:33 Temperature Pulse Rate 62 Blood Pressure 161/93 H 151/95 H BP Systolic 161 151 BP Diastolic 93 95 Pulse Ox 03/16/22 19:33 03/16/22 20:31 03/16/22 20:31 Temperature Pulse Rate 58 L 62 Blood Pressure 140/90 H BP Systolic 140 BP Diastolic 90 Pulse Ox 03/16/22 21:08 03/16/22 22:08 03/16/22 22:08 Temperature 97.9 F Pulse Rate 63 Blood Pressure 145/89 H BP Systolic 145 BP Diastolic 89 Pulse Ox 03/16/22 22:33 03/16/22 22:33 03/16/22 23:06 Temperature 98.1 F Pulse Rate 65 Blood Pressure 144/95 H BP Systolic 144 BP Diastolic 95 Pulse Ox 03/16/22 23:32 03/16/22 23:32 03/17/22 00:28 Temperature Pulse Rate 71 59 L Blood Pressure 145/86 H BP Systolic 145 BP Diastolic 86 Pulse Ox 03/17/22 00:28 03/17/22 00:33 03/17/22 00:33 Temperature Pulse Rate 59 L Blood Pressure 153/90 H BP Systolic 153 BP Diastolic 90 Pulse Ox 97 03/17/22 01:13 03/17/22 01:33 03/17/22 01:33 Temperature 97.2 F L Pulse Rate 57 L Blood Pressure 151/89 H BP Systolic 151 BP Diastolic 89 Pulse Ox 03/17/22 02:30 03/17/22 02:30 03/17/22 02:35 Temperature Pulse Rate 66 63 Blood Pressure BP Systolic BP Diastolic Pulse Ox 99 03/17/22 02:35 03/17/22 02:40 03/17/22 02:40 Temperature Pulse Rate 60 Blood Pressure BP Systolic BP Diastolic Pulse Ox 100 100 Weight Weight: 229 lb 0.964 oz Body Mass Index (BMI) 30.2 Physical Exam Const alert, oriented x3, no apparent distress and healthy appearing HEENT normocephalic and moist oral mucous membranes Head and Scalp: atraumatic Neck full ROM, no lymphadenopathy, supple and thyroid normal General: trachea midline Lymph Lymphatic: no lymphadenopathy noted Chest inspection of chest normal Resp normal respiratory effort Cardio regular rate GI normal to inspection, nondistended, normoactive bowel sounds, soft to palpation and non-tender Inspection: gravid external exam normal Manual OB Exam: estimated gestational size appropriate, presentation cephalic, dilated, effaced and station Extremity normal to inspection General Extremity: Negative for edema Skin no rashes or lesions noted Neuro no focal motor deficits and deep tendon reflexes 2+ bilaterally Motor Exam: strength 5/5 throughout and clonus absent Psych mental status grossly normal Labs Labs Labs: Blood Type B POSITIVE Antibody Screen NEGATIVE Hct 35.0 % (37-47) L Hgb 12.2 g/dL (12.0-15.0) Obstetrics US Syphilis Total Ab Non-reactive Rubella IgG Antibody Reactive (Nonreactive) Hep Bs Antigen Non-Reactive (Nonreactive) Chlamydia DNA (LUCIAN) Negative (Negative) Neisseria gonorrhoeae DNA (LUCIAN) Negative (Negative) HIV 1&2 Antibody Non-Reactive (Nonreactive) Glucose 1 Hr 50 gm 61 mg/dL (70-140) L Assessment & Plan (1) Mild to moderate pre-eclampsia complicating puerperium: COMMENT: plan IOL (2) COVID-19 affecting , antepartum: COMMENT: 81 mg ASA. 32 and 36 week growth US, 03/09 nl growth, EFW 2662 in 37th%. 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 (4) Depression: COMMENT: effexor, counseling encouraged. 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 on bromocriptine in the past. monitored by Endo- Dr Gutierrez. (7) Supervision of high risk , antepartum: COMMENT: PRR , EDD04/13/22, girl Umm BF Eric (8) : QUALIFIERS: Weeks of gestation: 36 weeks Qualified Code(s): Z3A.36 - 36 weeks gestation of COMMENT: anatomy nl, NIPT low risk, gender female. 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 Pain management: plans epidural. GBS pos- give PCN. Management of any complications: [none] I have reviewed the [facility] and made any clinically relevant updates. 03/17/22 0246 <Electronically signed by Nikki Monroy MD> Cosigner Signature (if applicable): CC: Dr. Nikki Monroy MD; No Primary Care Physician~ Signed [facility] Work Phone: 1(499) 757-776607-20-2022 NotePap Smear Specimen AdequacyJuly 2021 10:51amComment.Satisfactory for evaluation. Endocervical and/or squamous metaplasticcells (endocervical component)are present.[facility] A#[id number] [facility] Hospital Work Phone: Comment on above:Satisfactory for evaluation. Endocervical and/or squamous metaplasticcells (endocervical component)are present.09-07-2021 NotePap Smear Specimen AdequacyJuly 2021 9:51amComment. Satisfactory for evaluation. Endocervical and/or squamous metaplasticcells (endocervical component)are present.[facility] A#[id number] General Hospital Work Phone: Comment on above:Satisfactory for evaluation. Endocervical and/or squamous metaplasticcells (endocervical component)are present.02-02-2021 Instructions* Patient Instructions* Lino Suarezid, LINE MANAGER - 02/02/2021 10:04 AM EST Images from the original note were not included. You tested negative for COVID today. No known exposure to COVID. Quarantine not indicated. Recommend OTC Flonase for nasal symptoms plain Mucinex and plenty of fluids to thin secretions as needed. Use your albuterol inhaler 2 puffs every 4 to 6 hours as needed for cough, wheeze or shortness of breath. Can take 1 to 2 teaspoons of buckwheat honey 4 to 5 times a day for reducing cough severity. Take the last dose about 30 minutes before bedtime to improve interrupted sleep due to your cough. Follow-up with your primary provider (or return to clinic if your do not have a primary care provider) if not better in 5 to 7 days or earlier if condition worsens. If you have been FULLY VACCINATED and has SYMPTOMS or SIGNIFICANT EXPOSURE - If you have been fully vaccinated, and have had close contact with someone who tested positive for COVID-19, you do not need to isolate/quarantine unless you have symptoms. - It is recommended that you get COVID-19 testing 3-5 days after last exposure date, regardless of symptoms. - you should wear a mask in public for 14 days following last exposure date or until you have a negative test result. - If you have symptoms after an exposure, you must immediately self-isolate. You may resume normal activity and return to work/school once you have a negative test result. - People are considered fully vaccinated: 2 weeks after their second dose in a 2-dose series (such as Pfizer or Moderna vaccines) OR 2 weeks after a single- dose vaccine (such as [employer] Dmitri vaccine) As always, guidelines of quarantine and isolation are subject to change on a daily basis. If you have no contraindications for taking these medications I recommend using Flonase (a nasal steroid spray) for nasal/sinus symptoms and taking plain Mucinex (an expectorant) and plenty of fluidsto thin secretions when congested. If you have no contraindication for taking acetaminophen (tylenol) and or ibuprofen (motrin), these medications can be used for fever and/or pain relief. These medications can be purchased at your local pharmacy or store. Follow all medication labeling instructions for appropriate dosing. If you are experiencing a cough, you can take 1 to 2 teaspoons of buckwheat honey 4 to 5 times a day for reducing cough severity. Take the last dose about 30 minutes before bedtime to improve interrupted sleep due to your cough. If you are experiencing any nausea, vomiting, or diarrhea, I would recommend a progressive diet: small frequent amounts, clear fluids to bland diet to regular diet as tolerated. Any significant abdominal pain, go to ER. If you have had diarrhea for a week, or if you are feeling weakness or dizziness, you should get reevaluated. If you are experiencing the worst headache that you have ever experienced (worst headache of your life) or a 'thunderclap' headache (means instant severe onset), any significant shortness of breath, difficulty breathing, high fevers, significant abdominal pain, or confusion go to the emergency roomfor further evaluation. Follow-up with your primary provider (or return to clinic if your do not have a primary care provider) if not better in 5 to 7 days or earlier if condition worsens. If you test NEGATIVE for COVID-19: Symptomatic for COVID-19 If you have COVID-19 symptoms (symptomatic) and you are under a 14 day quarantine because of significant exposure (which is defined as close contact with someone that has a laboratory confirmed infection from COVID-19 or a person that was diagnosed by a medical professional), then a negative COVID-19 test does not clear you from the 14 day quarantine. You were likely not clinically infectious at the time of the test. This does not mean that you will not get sick and develop symptoms. It is possible that you were in the early phase of the infection at the time of your test and you could be positive later. For these reasons: 1) If the test was due to having symptoms WITH significant exposure, you should remain in quarantine: - for the full 14 days AND - you have been without a fever (100.4 F) for at least 24 hours without the use of fever reducing medication AND - your symptoms are improving If you are unable to separate yourself completely from the COVID-19 positive person (i.e. parent caring for a child), CDC guidelines recommend you quarantine for 24 days (10 days from symptom onset of the COVID positive person PLUS 14 additional days). 2) If the test was due to symptoms WITHOUT significant exposure, you may return to work/school if: - you have been without a fever (100.4 F) for at least 24 hours without the use of fever reducing medication AND - your symptoms are improving What Do I Do If I am Sick? Stay Home: If you are sick, stay home from work, school, public places, and social gatherings Social Distance: maintain 6 feet of distance from other people. Monitor Your Symptoms: If you develop fever, shortness of breath, confusion, or any respiratory symptoms, please notify your doctor immediately Cover Your Cough: Cough and sneeze into your shirt sleeve or inner elbow. Do not cough into your hands or into the air. If available, cough into a tissue and throw it into a trash can. Wash Your Hands: Wash hands often with soap and warm water and/or alcohol based hand refinery operator helper cracking unit, scrubbing your hands for at least 20 seconds. Wash your hands after sneezing or coughing, after going to the bathroom, and before eating or drinking. Wear a Mask: Wear a face mask when around others. Always wear a face mask (if able) if you have to leave your home Don't Touch: avoid touching your eyes, nose, and mouth Don't Share: avoid sharing items with others as they can spread infection Call First: If you do need to seek urgent medical care, call the facility first to let them know you are on your way Other COVID Questions? CDC - https://www.cdc.gov/coronavirus/2019-ncov/index.html - https://www.cdc.gov/coronavirus/2019-ncov/vs-fzx-aac-sick/quarantine.html [place] Department of Health - Website: https://coronavirus.[place].gov/wps/portal/gov/covid-19/home - Hotline: 247-4-MAB-OD (997-496-4237) [place]: https://blog.[employer]/series/mdizc-93-pzhfjsxjzgx-toolkit/ Cough: Care Instructions Overview A cough is your body's response to something that bothers your throat or airways. Many things can cause a cough. You might cough because of a cold or the flu, bronchitis, or asthma. Smoking, postnasal drip, allergies, and stomach acid that backs up into your throat also can cause coughs. A cough is a symptom, not a disease. Most coughs stop when the cause, such as a cold, goes away. You can take a few steps at home to cough less and feel better. Follow-up care is a beltran part of your treatment and safety. Be sure to make and go to all appointments, and call your doctor if you are having problems. It's also a good idea to know your test resultsand keep a list of the medicines you take. How can you care for yourself at home? Drink lots of water and other fluids. This helps thin the mucus and soothes a dry or sore throat. Honey or lemon juice in hot water or tea may ease a dry cough. Take cough medicine as directed by your doctor. Prop up your head on pillows to help you breathe and ease a dry cough. Try cough drops or hard candy to soothe a dry or sore throat. Do not smoke. Avoid secondhand smoke. If you need help quitting, talk to your doctor about stop-smoking programs and medicines. These can increase your chances of quitting for good. When should you call for help? Call 911 anytime you think you may need emergency care. For example, call if: You have severe trouble breathing. Call your doctor now or seek immediate medical care if: You cough up blood. You have new or worse trouble breathing. You have a new or higher fever. You have a new rash. Watch closely for changes in your health, and be sure to contact your doctor if: You cough more deeply or more often, especially if you notice more mucus or a change in the color of your mucus. You have new symptoms, such as a sore throat, an earache, or sinus pain. You do not get better as expected. Where can you learn more? Log into your personal health record on https://K[employer] digitalt.[employer] and enter D279 in the Education box to learn more about Cough: Care Instructions. Current as of: August 24, 2020 Content Version: 13.1 Flowboard. Care instructions adapted under license by your healthcare professional. If you have questions about a medical condition or this instruction, always ask your healthcare professional. [employer] disclaims any warranty or liability for your use of this information. documented in this [id number] History of Present illness Narrative* Lino Lo CNP - 02/02/2021 9:28 AM EST Images from the original note were not included. Patient Name: [facility] Location: [place] [address] [place] [id number] Date Of : Date Of Visit: 1990 02/02/2021 MRN# Provider: [id number] Lino Lo CNP Chief Complaint Patient presents with Covid-19 Screening Sore throat, chest congestion, cough, symptoms started 01/26, pt works at home, fully vaccinated Assessment & Plan Medical Decision Making Presents for covid screening. Presenting symptoms: Sore throat (improved);Muscle pain;Cough;Fatigue; sinus pressure Symptoms started 01/26/21 Exposed to COVID-19: unknown, works at home. Vaccinated against COVID-19 : yes Most prompting concern today: covid test, cough/wheeze/sob. Had pneumonia when young. See physical examination findings. I do not suspect pneumonia. COVID-19 test is negative today. No known exposure to COVID. Quarantine not indicated Will treat for sinus/lower respiratory symptoms. See discharge for treatment plan. Additional Clinical Comments Subjective 30 y.o. female presents with Covid-19 Screening (Sore throat, chest congestion, cough, symptoms started 01/26, pt works at home, fully vaccinated) Presents for covid screening. Presenting symptoms: Sore throat (improved);Muscle pain;Cough;Fatigue; sinus pressure Symptoms started 01/26/21 Exposed to COVID-19: unknown, works at home. Vaccinated against COVID-19 : yes Most prompting concern today: covid test URI This is a new problem. The current episode started in the past 7 days. The problem has been unchanged. There has been no fever. Associated symptoms include congestion, coughing, ear pain, headaches, sinus pain, a sore throat and wheezing. Pertinent negatives include no diarrhea, nausea, rhinorrhea or vomiting. Treatments tried: alkaseltzer daytime/nighttime, mucinex. The treatment provided no relief. Review Of Systems Review of Systems Constitutional: Positive for fatigue. Negative for chills and fever. HENT: Positive for congestion, ear pain, sinus pressure, sinus pain and sore throat. Negative for rhinorrhea. Denies new loss of taste or smell Respiratory: Positive for cough, chest tightness, shortness of breath and wheezing. Gastrointestinal: Negative for diarrhea, nausea and vomiting. Musculoskeletal: Positive for myalgias. Neurological: Positive for headaches. Medical History History reviewed. No pertinent past medical history. History reviewed. No pertinent surgical history. There is no problem list on file for this patient. Social History Social History Tobacco Use Smoking status: Never Smoker Smokeless tobacco: Never Used Substance Use Topics Alcohol use: Never Drug use: Never Family History History reviewed. No pertinent family history. Objective Physical Exam BP 120/77 (BP Location: Left arm, Patient Position: Sitting, BP Cuff Size: Adult) Pulse 89 Temp98.1 F (36.7 C) (Infrared) Resp 16 Ht 6' 2 Wt 79.4 kg (175 lb) SpO2 96% BMI 22.47 kg/m Vision/Hearing Exam:No exam data present Physical Exam Vitals and nursing note reviewed. HENT: Head: Normocephalic. Right Ear: Tympanic membrane and ear canal normal. Left Ear: Tympanic membrane and ear canal normal. Nose: Right Sinus: No maxillary sinus tenderness or frontal sinus tenderness. Left Sinus: No maxillary sinus tenderness or frontal sinus tenderness. Eyes: Conjunctiva/sclera: Conjunctivae normal. Cardiovascular: Rate and Rhythm: Normal rate and regular rhythm. Pulses: Normal pulses. Pulmonary: Effort: Pulmonary effort is normal. Breath sounds: Wheezing (scattered) and rhonchi (scattered) present. Lymphadenopathy: Cervical: No cervical adenopathy. Skin: General: Skin is warm and dry. Neurological: Mental Status: She is alert and oriented to person, place, and time. GCS: GCS eye subscore is 4. GCS verbal subscore is 5. GCS motor subscore is 6. Psychiatric: Mood and Affect: Mood normal. Behavior: Behavior normal. Thought Content: Thought content normal. Judgment: Judgment normal. Procedure Notes Procedures Results Recent Results (from the past 168 hour(s)) COVID-19, Molecular Collection Time: 02/02/21 9:32 AM Specimen: Nasopharyngeal; Swab Result Value Ref Range SARS-CoV-2 Not Detected Not Detected No orders to display Orders Placed This Visit Orders Placed This Encounter Procedures COVID-19, Molecular Medication List At End Of Visit Current Outpatient Medications Medication Sig Dispense Refill fluticasone propionate (FLONASE ALLERGY RELIEF NASL) Instill into each nostril . albuterol 90 mcg/actuation inhaler Use 2 puffs every 4 to 6 hours as needed for cough, wheeze, or shortness of breath, dispense with spacer. . 18 g 0 amoxicillin-clavulanate (Augmentin) 875-125 mg per tablet Take 1 (one) tablet by mouth 2 (two) times a day for 10 days . 20 tablet 0 predniSONE (DELTASONE) 20 MG tablet Take 2 tabs daily x 5 days . 10 tablet 0 venlafaxine (EFFEXOR) 75 MG tablet Take 75 mg by mouth 2 (two) times a day . No current facility-administered medications for this visit. Patient Instructions You tested negative for COVID today. No known exposure to COVID. Quarantine not indicated. Recommend OTC Flonase for nasal symptoms plain Mucinex and plenty of fluids to thin secretions as needed. Use your albuterol inhaler 2 puffs every 4 to 6 hours as needed for cough, wheeze or shortness of breath. Can take 1 to 2 teaspoons of buckwheat honey 4 to 5 times a day for reducing cough severity. Take the last dose about 30 minutes before bedtime to improve interrupted sleep due to your cough. Follow-up with your primary provider (or return to clinic if your do not have a primary care provider) if not better in 5 to 7 days or earlier if condition worsens. If you have been FULLY VACCINATED and has SYMPTOMS or SIGNIFICANT EXPOSURE - If you have been fully vaccinated, and have had close contact with someone who tested positive for COVID-19, you do not need to isolate/quarantine unless you have symptoms. - It is recommended that you get COVID-19 testing 3-5 days after last exposure date, regardless of symptoms. - you should wear a mask in public for 14 days following last exposure date or until you have a negative test result. - If you have symptoms after an exposure, you must immediately self-isolate. You may resume normal activity and return to work/school once you have a negative test result. - People are considered fully vaccinated: 2 weeks after their second dose in a 2-dose series (such as Pfizer or Moderna vaccines) OR 2 weeks after a single- dose vaccine (such as [employer] Dmitri vaccine) As always, guidelines of quarantine and isolation are subject to change on a daily basis. If you have no contraindications for taking these medications I recommend using Flonase (a nasal steroid spray) for nasal/sinus symptoms and taking plain Mucinex (an expectorant) and plenty of fluidsto thin secretions when congested. If you have no contraindication for taking acetaminophen (tylenol) and or ibuprofen (motrin), these medications can be used for fever and/or pain relief. These medications can be purchased at your local pharmacy or store. Follow all medication labeling instructions for appropriate dosing. If you are experiencing a cough, you can take 1 to 2 teaspoons of buckwheat honey 4 to 5 times a day for reducing cough severity. Take the last dose about 30 minutes before bedtime to improve interrupted sleep due to your cough. If you are experiencing any nausea, vomiting, or diarrhea, I would recommend a progressive diet: small frequent amounts, clear fluids to bland diet to regular diet as tolerated. Any significant abdominal pain, go to ER. If you have had diarrhea for a week, or if you are feeling weakness or dizziness, you should get reevaluated. If you are experiencing the worst headache that you have ever experienced (worst headache of your life) or a 'thunderclap' headache (means instant severe onset), any significant shortness of breath, difficulty breathing, high fevers, significant abdominal pain, or confusion go to the emergency roomfor further evaluation. Follow-up with your primary provider (or return to clinic if your do not have a primary care provider) if not better in 5 to 7 days or earlier if condition worsens. If you test NEGATIVE for COVID-19: Symptomatic for COVID-19 If you have COVID-19 symptoms (symptomatic) and you are under a 14 day quarantine because of significant exposure (which is defined as close contact with someone that has a laboratory confirmed infection from COVID-19 or a person that was diagnosed by a medical professional), then a negative COVID-19 test does not clear you from the 14 day quarantine. You were likely not clinically infectious at the time of the test. This does not mean that you will not get sick and develop symptoms. It is possible that you were in the early phase of the infection at the time of your test and you could be positive later. For these reasons: 1) If the test was due to having symptoms WITH significant exposure, you should remain in quarantine: - for the full 14 days AND - you have been without a fever (100.4 F) for at least 24 hours without the use of fever reducing medication AND - your symptoms are improving If you are unable to separate yourself completely from the COVID-19 positive person (i.e. parent caring for a child), CDC guidelines recommend you quarantine for 24 days (10 days from symptom onset of the COVID positive person PLUS 14 additional days). 2) If the test was due to symptoms WITHOUT significant exposure, you may return to work/school if: - you have been without a fever (100.4 F) for at least 24 hours without the use of fever reducing medication AND - your symptoms are improving What Do I Do If I am Sick? Stay Home: If you are sick, stay home from work, school, public places, and social gatherings Social Distance: maintain 6 feet of distance from other people. Monitor Your Symptoms: If you develop fever, shortness of breath, confusion, or any respiratory symptoms, please notify your doctor immediately Cover Your Cough: Cough and sneeze into your shirt sleeve or inner elbow. Do not cough into your hands or into the air. If available, cough into a tissue and throw it into a trash can. Wash Your Hands: Wash hands often with soap and warm water and/or alcohol based hand refinery operator helper cracking unit, scrubbing your hands for at least 20 seconds. Wash your hands after sneezing or coughing, after going to the bathroom, and before eating or drinking. Wear a Mask: Wear a face mask when around others. Always wear a face mask (if able) if you have to leave your home Don't Touch: avoid touching your eyes, nose, and mouth Don't Share: avoid sharing items with others as they can spread infection Call First: If you do need to seek urgent medical care, call the facility first to let them know you are on your way Other COVID Questions? CDC - https://www.cdc.gov/coronavirus/2019-ncov/index.html - https://www.cdc.gov/coronavirus/2019-ncov/dy-ctg-smt-sick/quarantine.html [facility] - Website: https://coronavirus.[place].gov/wps/portal/gov/covid-19/home - Hotline: 149-2-KEY-ODH (217-529-5327) DearLocal: https://blog.[employer]series/lznhu-81-xzslupvfytd-toolkit/ Cough: Care Instructions Overview A cough is your body's response to something that bothers your throat or airways. Many things can cause a cough. You might cough because of a cold or the flu, bronchitis, or asthma. Smoking, postnasal drip, allergies, and stomach acid that backs up into your throat also can cause coughs. A cough is a symptom, not a disease. Most coughs stop when the cause, such as a cold, goes away. You can take a few steps at home to cough less and feel better. Follow-up care is a beltran part of your treatment and safety. Be sure to make and go to all appointments, and call your doctor if you are having problems. It's also a good idea to know your test resultsand keep a list of the medicines you take. How can you care for yourself at home? Drink lots of water and other fluids. This helps thin the mucus and soothes a dry or sore throat. Honey or lemon juice in hot water or tea may ease a dry cough. Take cough medicine as directed by your doctor. Prop up your head on pillows to help you breathe and ease a dry cough. Try cough drops or hard candy to soothe a dry or sore throat. Do not smoke. Avoid secondhand smoke. If you need help quitting, talk to your doctor about stop-smoking programs and medicines. These can increase your chances of quitting for good. When should you call for help? Call 911 anytime you think you may need emergency care. For example, call if: You have severe trouble breathing. Call your doctor now or seek immediate medical care if: You cough up blood. You have new or worse trouble breathing. You have a new or higher fever. You have a new rash. Watch closely for changes in your health, and be sure to contact your doctor if: You cough more deeply or more often, especially if you notice more mucus or a change in the color of your mucus. You have new symptoms, such as a sore throat, an earache, or sinus pain. You do not get better as expected. Where can you learn more? Log into your personal health record on https://KIT digitalt.[employer] and enter D279 in the Education box to learn more about Cough: Care Instructions. Current as of: August 24, 2020 Content Version: 13.1 [employer]. Care instructions adapted under license by your healthcare professional. If you have questions about a medical condition or this instruction, always ask your healthcare professional. [employer] disclaims any warranty or liability for your use of this information. [facility]* Diagnosis Wheeze- Primary Wheezing Sore throat Acute pharyngitis Cough Lab test negative for COVID-19 virus Acute rhinosinusitis Lower respiratory infection Other diseases of respiratory system, not elsewhere classified [facility] Diagnosis Onset Date Resolution Status Pituitary tumor acute acute Seasonal allergies acute Supervision of high risk , antepartum acute [facility] Work Phone: Evaluation note* Diagnosis Onset Date Resolution Status Pituitary tumor acute acute Supervision of high risk , antepartum acute Seasonal allergies resolved ASCUS of cervix with negative high risk HPV acute COVID-19 affecting , antepartum acute Depression acute Pituitary tumor acute acute Screening for genetic disease carrier status acute Supervision of high risk , antepartum acute ASCUS of cervix with negative high risk HPV acute COVID-19 affecting , antepartum acute Depression acute Pituitary tumor acute acute Screening for genetic disease carrier status acute Supervision of high risk , antepartum acute ASCUS of cervix with negative high risk HPV acute COVID-19 affecting , antepartum acute Depression acute Pituitary tumor acute acute Screening for genetic disease carrier status acute Supervision of high risk , antepartum acute ASCUS of cervix with negative high risk HPV acute COVID-19 affecting , antepartum acute Depression acute Pituitary tumor acute acute Screening for genetic disease carrier status acute Supervision of high risk , antepartum acute [facility] Work Phone: Evaluation note* Diagnosis Onset Date Resolution Status Depression acute Pituitary tumor acute ASCUS of cervix with negative high risk HPV resolved COVID-19 affecting , antepartum resolved resolved Screening for genetic disease carrier status resolved Supervision of high risk , antepartum resolved Depression acute Pituitary tumor acute ASCUS of cervix with negative high risk HPV resolved COVID-19 affecting , antepartum resolved resolved Screening for genetic disease carrier status resolved Supervision of high risk , antepartum resolved Depression acute Pituitary tumor acute ASCUS of cervix with negative high risk HPV resolved COVID-19 affecting , antepartum resolved resolved Screening for genetic disease carrier status resolved Supervision of high risk , antepartum resolved Depression acute Pituitary tumor acute ASCUS of cervix with negative high risk HPV resolved COVID-19 affecting , antepartum resolved resolved Screening for genetic disease carrier status resolved Supervision of high risk , antepartum resolved Depression acute Pituitary tumor acute ASCUS of cervix with negative high risk HPV resolved COVID-19 affecting , antepartum resolved resolved Screening for genetic disease carrier status resolved Supervision of high risk , antepartum resolved Depression acute Pituitary tumor acute ASCUS of cervix with negative high risk HPV resolved COVID-19 affecting , antepartum resolved resolved Screening for genetic disease carrier status resolved Supervision of high risk , antepartum resolved Depression acute Pituitary tumor acute ASCUS of cervix with negative high risk HPV resolved COVID-19 affecting , antepartum resolved resolved Screening for genetic disease carrier status resolved Supervision of high risk , antepartum resolved Depression acute Mild to moderate pre-eclampsia complicating puerperium acute Pituitary tumor acute Vaginal delivery acute ASCUS of cervix with negative high risk HPV resolved COVID-19 affecting , antepartum resolved Encounter for induction of labor resolved GBS (group B streptococcus) UTI complicating resolved resolved Screening for genetic disease carrier status resolved Supervision of high risk , antepartum resolved [facility] Work Phone: Evaluation note* Diagnosis Onset Date Resolution Status Depression acute Pituitary tumor acute ASCUS of cervix with negative high risk HPV resolved COVID-19 affecting , antepartum resolved resolved Screening for genetic disease carrier status resolved Supervision of high risk , antepartum resolved Depression acute Pituitary tumor acute ASCUS of cervix with negative high risk HPV resolved COVID-19 affecting , antepartum resolved resolved Screening for genetic disease carrier status resolved Supervision of high risk , antepartum resolved Depression acute Pituitary tumor acute ASCUS of cervix with negative high risk HPV resolved COVID-19 affecting , antepartum resolved resolved Screening for genetic disease carrier status resolved Supervision of high risk , antepartum resolved Depression acute Pituitary tumor acute ASCUS of cervix with negative high risk HPV resolved COVID-19 affecting , antepartum resolved resolved Screening for genetic disease carrier status resolved Supervision of high risk , antepartum resolved Depression acute Pituitary tumor acute ASCUS of cervix with negative high risk HPV resolved COVID-19 affecting , antepartum resolved resolved Screening for genetic disease carrier status resolved Supervision of high risk , antepartum resolved Depression acute Pituitary tumor acute ASCUS of cervix with negative high risk HPV resolved COVID-19 affecting , antepartum resolved resolved Screening for genetic disease carrier status resolved Supervision of high risk , antepartum resolved Depression acute Mild to moderate pre-eclamps ia complicating puerperium acute Pituitary tumor acute Vaginal delivery acute ASCUS of cervix with negative high risk HPV resolved COVID-19 affecting , antepartum resolved Encounter for induction of labor resolved GBS (group B streptococcus) UTI complicating resolved resolved Screening for genetic disease carrier status resolved Supervision of high risk , antepartum resolved nipple pain nonea ctive Care and examination of lactating mother noneactive Mild to moderate pre-eclamps ia complicating puerperium acute [facility] Work Phone: Evaluation note* Diagnosis 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 Diagnosis Onset Date Resolution Status Abnormal uterine bleeding [place] Pituitary tumor acute [facility] Work Phone: Evaluation note* Diagnosis Onset Date Resolution Status Abnormal uterine bleeding [place] Pituitary tumor acute Encounter for routine gynecological examination noneactive [facility] Work Phone: Evaluation note* Diagnosis Malignant melanoma of left lower extremity including hip (HCC)- Primary Malignant melanoma of skin of lower limb, including hip Malignant melanoma of leg, left (HCC) [facility] Mass of left axilla- Primary Malignant melanoma of left lower extremity including hip (HCC) Malignant melanoma of skin of lower limb, including hip Malignant melanoma of leg, left (HCC) [facility] Diagnosis Malignant melanoma of leg, left (HCC)- Primary Malignant melanoma of leg, left (HCC) [facility]* Diagnosis Mass of left axilla documented in this encounter [facility]* Diagnosis Malignant melanoma of left lower extremity including hip (HCC)- Primary Malignant melanoma of skin of lower limb, including hip documented in this encounter [facility] for referral (narrative)No reason for referral information availableWSycamore [facility] Work Phone: Summary Purpose Family History No Family History Records Found Relationship Condition Age at Onset Recorded Date/T estrellita Not Specified Malignant neoplasm of ovary Unknown Depression Unknown Malignant neoplasm of breast Unknown Attempted suicide Unknown Disorder of endocrine system Unknown Malignant neoplasm Unknown Advance Directives No Advanced Directives Records FoundDocuments on File Type Date Recorded Patient Medical Psychotherapist Expl anation Advance Directives and Livin g Will 10/05/2019 7:50 PM Advance Directive Response Recorded Date/ Time Living Will No September 17, 2021 12:10pm Power of Physician Office Assistant No September 17 12:10pm Advance Directive Response Recorded Date/ Time Living Will No September 17, 2021 11:10am Power of Physician Office Assistant No September 17 11:10am Advance Directive Response Recorded Date/ Time Living Will No March 16 7:33pm Power of Physician Office Assistant No March 16, 2022 7:33pm Advance Directive Response Recorded Date/ Time Living Will No January 24 3:06pm Power of Physician Office Assistant No January 24, 2023 3:06pm Advance Directive Response Recorded Date/ Time Living Will No January 24 4:06pm Power of Physician Office Assistant No January 24, 2023 4:06pm Advance Directive Response Recorded Date/ Time Living Will No January 24 4:06pm Do you have a Healthcare Power of Physician Office Assistant? No January 24, 2023 4:06pm Discharge Instructions * Instructions* Cathie Mireles, LINE MANAGER - 10/05/2019 Wound care and finger splint as discussed. Tylenol as needed. Follow-up with your doctor if needed. * Attachments The following attachments cannot be sent through Care Everywhere. * Lacerations: Open (Pashto) documented in this encounter Assessments Diagnosis Laceration of right little finger without foreign body without damage to nail, initial encounter- Primary Chief Complaint and Reason for Visit Chief Complaint NOB LMP 07/07 E ORDER 11 wks preg, bleeding Reason for Visit Pituitary tumor Seasonal allergies Supervision of high risk , antepartum Chief Complaint NOB LMP 07/07 E ORDER 11 wks preg, bleeding est ob 13w6d est ob 17w6d est ob 21w6d est ob 25w6d 1 HOUR GLUCOSE Reason for Visit Pituitary tumor Supervision of high risk , antepartum Seasonal allergies ASCUS of cervix with negative high risk HPV COVID-19 affecting , antepartum Depression Pituitary tumor Screening for genetic disease carrier status Supervision of high risk , antepartum ASCUS of cervix with negative high risk HPV COVID-19 affecting , antepartum Depression Pituitary tumor Screening for genetic disease carrier status Supervision of high risk , antepartum ASCUS of cervix with negative high risk HPV COVID-19 affecting , antepartum Depression Pituitary tumor Screening for genetic disease carrier status Supervision of high risk , antepartum ASCUS of cervix with negative high risk HPV COVID-19 affecting , antepartum Depression Pituitary tumor Screening for genetic disease carrier status Supervision of high risk , antepartum Chief Complaint est ob 21w6d est ob 25w6d 1 HOUR GLUCOSE est ob 28w6d est ob 30w6d est ob 32w6d est ob 34w6d GROWTH est ob 36w6d LABOR AND DELIVERY LABOR AND DELIVERY Reason for Visit Depression Pituitary tumor ASCUS of cervix with negative high risk HPV COVID-19 affecting , antepartum Screening for genetic disease carrier status Supervision of high risk , antepartum Depression Pituitary tumor ASCUS of cervix with negative high risk HPV COVID-19 affecting , antepartum Screening for genetic disease carrier status Supervision of high risk , antepartum Depression Pituitary tumor ASCUS of cervix with negative high risk HPV COVID-19 affecting , antepartum Screening for genetic disease carrier status Supervision of high risk , antepartum Depression Pituitary tumor ASCUS of cervix with negative high risk HPV COVID-19 affecting , antepartum Screening for genetic disease carrier status Supervision of high risk , antepartum Depression Pituitary tumor ASCUS of cervix with negative high risk HPV COVID-19 affecting , antepartum Screening for genetic disease carrier status Supervision of high risk , antepartum Depression Pituitary tumor ASCUS of cervix with negative high risk HPV COVID-19 affecting , antepartum Screening for genetic disease carrier status Supervision of high risk , antepartum Depression Pituitary tumor ASCUS of cervix with negative high risk HPV COVID-19 affecting , antepartum Screening for genetic disease carrier status Supervision of high risk , antepartum Depression Mild to moderate pre-eclampsia complicating puerperium Pituitary tumor Vaginal delivery ASCUS of cervix with negative high risk HPV COVID-19 affecting , antepartum Encounter for induction of labor GBS (group B streptococcus) UTI complicating Screening for genetic disease carrier status Supervision of high risk , antepartum Chief Complaint est ob 25w6d 1 HOUR GLUCOSE est ob 28w6d est ob 30w6d est ob 32w6d est ob 34w6d GROWTH est ob 36w6d LABOR AND DELIVERY LABOR AND DELIVERY assessment PP BP check Reason for Visit Depression Pituitary tumor ASCUS of cervix with negative high risk HPV COVID-19 affecting , antepartum Screening for genetic disease carrier status Supervision of high risk , antepartum Depression Pituitary tumor ASCUS of cervix with negative high risk HPV COVID-19 affecting , antepartum Screening for genetic disease carrier status Supervision of high risk , antepartum Depression Pituitary tumor ASCUS of cervix with negative high risk HPV COVID-19 affecting , antepartum Screening for genetic disease carrier status Supervision of high risk , antepartum Depression Pituitary tumor ASCUS of cervix with negative high risk HPV COVID-19 affecting , antepartum Screening for genetic disease carrier status Supervision of high risk , antepartum Depression Pituitary tumor ASCUS of cervix with negative high risk HPV COVID-19 affecting , antepartum Screening for genetic disease carrier status Supervision of high risk , antepartum Depression Pituitary tumor ASCUS of cervix with negative high risk HPV COVID-19 affecting , antepartum Screening for genetic disease carrier status Supervision of high risk , antepartum Depression Mild to moderate pre-eclampsia complicating puerperium Pituitary tumor Vaginal delivery ASCUS of cervix with negative high risk HPV COVID-19 affecting , antepartum Encounter for induction of labor GBS (group B streptococcus) UTI complicating Screening for genetic disease carrier status Supervision of high risk , antepartum nipple pain Care and examination of lactating mother Mild to moderate pre-eclampsia complicating puerperium Chief Complaint irregular heavy kiley ods INT LABS JUST LEFT OFFICE Reason for Visit Abnormal uterine ble eding Pituitary tumor Chief Complaint irregular heavy kiley [facility] INT LABS JUST LEFT OFFICE BLEEDING Reason for Visit Abnormal uterine ble eding Pituitary tumor Chief Complaint irregular heavy k[facility] INT LABS JUST LEFT OFFICE BLEEDING ENLARGED LYMPH 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) Reason for Visit Abnormal uterine ble eding Pituitary tumor Encounter for routine gynecological examination Chief Complaint irregular heavy kiley [facility] INT LABS JUST LEFT OFFICE BLEEDING ENLARGED LYMPH 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) M79.89 Other specified soft tissue disorders LEFT Reason for Visit Abnormal uterine ble eding Pituitary tumor Encounter for routine gynecological examination Chief Complaint Admit Date 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, 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 8: 33am MENORRHAGIA March 05, 2024 1 2:30pm Pituitary March 31, 2024 8:44am EMB April 30, 2024 10: 48am AUB April 30, 2024 11: 49am Reason for Visit Admit Date Menorrhagia with regular cycle February 252024 8:33am Prolactinoma, benign March 31, 2024 8:44am Menorrhagia with regular cycle April 10:48am Chief Complaint Admit Date Pituitary March 31, 2024 8:44am EMB April 30, 2024 10: 48am AUB April 30, 2024 11: 49am SORE THROAT, CONGESTION May 22, 2024 11:46am 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) June 19, 2024 10:27a m INT LAB ORDERS July 23, 2024 2:46p m fu bleeding, HCG levels *copay $30 July 24, 2024 7:45am Reason for Visit Admit Date Prolactinoma, benign March 31, 2024 8:44am Menorrhagia with regular cycle April 10:48am Acute sinusitis May 22, 2024 11:4 6am Axillary lump June 19, 2024 10:27a m Pituitary tumor June 19, 2024 10:27a m Encounter for routine gynecological exam ination June 19, 2024 10:27am Complete July 24, 2024 7:45a m Chief Complaint Admit Date EMB April 30, 2024 10: 48am AUB April 30, 2024 11: 49am SORE THROAT, CONGESTION May 22, 2024 11:46am 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) June 19, 2024 10:27a m INT LAB ORDERS July 23, 2024 2:46p m fu bleeding, HCG levels *copay $30 July 24, 2024 7:45am SORE THROAT, HIVES August 22, 2024 9:06a m Reason for Visit Admit Date Menorrhagia with regular cycle April 10:48am Acute sinusitis May 22, 2024 11:4 6am Axillary lump June 19, 2024 10:27a m Pituitary tumor June 19, 2024 10:27a m Encounter for routine gynecological exam ination June 19, 2024 10:27am Complete July 24, 2024 7:45a m Chief Complaint Admit Date 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) June 19, 2024 10:27a m INT LAB ORDERS July 23, 2024 2:46p m fu bleeding, HCG levels *copay $30 July 24, 2024 7:45am SORE THROAT, HIVES August 22, 2024 9:06a m 6 M FU September 25, 2024 10: 54am Reason for Visit Admit Date Axillary lump June 19, 2024 10:27a m Pituitary tumor June 19, 2024 10:27a m Encounter for routine gynecological exam ination June 19, 2024 10:27am Complete July 24, 2024 7:45a m Acute pharyngitis August 22, 2024 9:06a m Hives August 22, 2024 9:06a m Additional Source Comments INFORMATION SOURCE (unrecogn ized section and content) DATE CREATED AUTHOR 08/08/2017 [facility] DATE CREATED AUTHOR AUTHOR'S ORGANIZ ATION 10/15/2018 [facility] DATE CREATED [facility] CREATED AUTHOR AUTHOR'S ORGANIZ ATION 02/03/2021 [facility] DATE CREATED AUTHOR AUTHOR'S ORGANIZ ATION 04/13/2021 [facility] DATE CREATED AUTHOR AUTHOR'S ORGANIZ ATION 05/20/2022 [facility] DATE CREATED AUTHOR AUTHOR'S ORGANIZ ATION 08/13/2024 [facility] DATE CREATED AUTHOR AUTHOR'S ORGANIZ ATION 08/21/2024 [facility] DATE CREATED AUTHOR AUTHOR'S ORGANIZ ATION 12/29/2024 [facility] Reason for Visit (unrecogniz ed section and content) Reason Comments Finger Laceration Reason Comments Covid-19 Screening Sore throat, chest c ongestion, cough, symptoms started 01/26, pt works at home, fully vaccinated Reason Comments Follow-up Hormones Reason Comments Appointment Reason Comments New Patient Melanoma, left thigh Reason Comments Radiology US Specialty Diagnoses / Procedures Referred By Contac t Referred To Contact [facility] Diagnoses Mass of left axilla Procedures US AXILLA ONLY LEFT US LMTD JOINT/OTH NONVASC XTR STRUX R-T W/IMG Shari Rowe MD [address] [place] [address] Phone: tel: fax:[phone] [facility] [address] [place] [address] Referral ID Status Reason Start Date Expiration Date V isits Requested Visits Authorized [id number] Closed Auto-Generate d Referral 07/22/2024 08/21/2025 1 1 Reason Comments Post Op Post Op Sole Ortiz RN - 10/05/2019 9:25 PM Sole Borja RN - 10/05/2019 9:24 PM Cathie Saini CNP - 10/05/2019 9:04 PM Bertha Xiong RN - 10/05/2019 7:37 PM EDT ED Notes (unrecognized secti on and content) PATIENT CALLED AND INFORMED THAT SHE LEFT HER WALLET HERE, WALLET WITH [employer] AT TRIAGE WINDOW. PATIENT VERBALIZED UNDERSTANDING AND STATES SHE IS ON HER WAY TO PICK IT UP BACITRACIN, STERI STRIPS, GAUZE, FINGER SPLINT, AND EDGAR WRAP APPLIED TO PATIENT'S HAND BY VERN HOYT ED PROVIDER NOTE [facility] NAME: Everett Carolina AGE: 29 y.o. : 1990 VISIT DATE: 10/05/2019 CSN: [id number] PCP: Sonia Vann CNP Chief Complaint Patient presents with Finger Laceration Patient presents to ED for evaluation of laceration to right pinky. Specifically states she was cutting vegetables with a mandolin and sliced her pinky finger. She is right-hand dominant. Tetanus status up-to-date. History reviewed. No pertinent past medical history. History reviewed. No pertinent surgical history. History reviewed. No pertinent family history. Social History Socioeconomic History Marital status: Single Spouse name: Not on file Number of children: Not on file Years of education: Not on file Highest education level: Not on file Occupational History Not on file Social Needs Financial resource strain: Not on file Food insecurity Worry: Not on file Inability: Not on file Transportation needs Medical: Not on file Non-medical: Not on file Tobacco Use Smoking status: Never Smoker Smokeless tobacco: Never Used Substance and Sexual Activity Alcohol use: Never Frequency: Never Drug use: Never Sexual activity: Not on file Lifestyle Physical activity Days per week: Not on file Minutes per session: Not on file Stress: Not on file Relationships Social connections Talks on phone: Not on file Gets together: Not on file Attends amish service: Not on file Active member of club or organization: Not on file Attends meetings of clubs or organizations: Not on file Relationship status: Not on file Other Topics Concern Not on file Social History Narrative Not on file No current outpatient medications on file prior to encounter. No Known Allergies Review of Systems Constitutional: Negative. Respiratory: Negative. Cardiovascular: Negative. Musculoskeletal: Negative. Skin: Positive for wound. Patient Vitals for the past 24 hrs: BP Temp Pulse Resp SpO2 Height Weight 10/05/19 1938 (!) 142/80 99.3 F (37.4 C) 62 16 99 % 6' 1 79.4 kg (175 lb) Physical Exam Constitutional: Appearance: Normal appearance. Cardiovascular: Rate and Rhythm: Normal rate and regular rhythm. Pulses: Normal pulses. Heart sounds: Normal heart sounds. Pulmonary: Effort: Pulmonary effort is normal. Breath sounds: Normal breath sounds. Musculoskeletal: Normal range of motion. General: Signs of injury present. No swelling, tenderness or deformity. Skin: General: Skin is warm and dry. Capillary Refill: Capillary refill takes less than 2 seconds. Neurological: Mental Status: She is alert. Laboratory & Radiographic Imaging (if done): No results found for this visit on 10/05/19. No orders to display Procedures MDM Number of Diagnoses or Management Options Laceration of right little finger without foreign body without damage to nail, initial encounter: Diagnosis management comments: Neurovascular intact. Skin is pink warm and dry. She is able to flex and sensation without difficulties. 2 small superficial lacerations noted to the distal aspect of the right little finger. She will have a thin layer of antibiotic ointment applied finger splint nonstick dressing and wrapped with Kerlix. Discharged home with wound care instructions follow-up with PCP if needed. The patient has been informed that they may have pre-hypertension or hypertension based on a blood pressure reading in the Emergency Department. I recommend that the patient call the primary care provider listed on their discharge instructions or a physician of their choice as soon as possible to arrange follow-up in the next 4 weeks for further evaluation of possible pre-hypertension or hypertension. . Clinical Impression: 1. Laceration of right little finger without foreign body without damage to nail, initial encounter ED Disposition ED Disposition Condition Comment Discharge Stable [place] discharged to home/self care in stable condition. Follow-up Information 1. Sonia Vann CNP. Specialty: Family Medicine Why: As needed [address] [facility] [address] Contact information for after-discharge care Follow-up information has not been specified. Cathie Mireles CNP 10/05/192105 Cathie Mireles CNP 10/05/192108 PT IS HERE FOR A LAC TO HER RIGHT PINKY WHICH BLEEDING IS CONTROLLED. SHE WAS USING A MANDOLIN TO CUT SOME FOOD AND HAPPENED TO CUT IT. SHE HAS NO OTHER COMPLAINTS. SHE HAS HAD A TETANUS SHOT IN 2014 documented in this encounter ED Attestation Note - Leslie Robledo MD - 10/05/2019 7:47 PM EDT Miscellaneous Notes (unrecog nized section and content) ED Attestation: I was personally available for consult in the emergency department. I have reviewed the chart and agree with the documentation as recorded by the ASHLEIGH (Advanced Practice Provider), including the assessment, treatment plan, and disposition documented in this encounter Care Teams (unrecognized sec tion and content) Finished Cigar Maker Relationship Specialty Start Date End Date Sonia Vann, LINE MANAGER [address] [facility] [place] [address] PCP - General Family Medicine 03/14/19 Team Status: Active Member Role Status Dates No Primary Care Physician Primary Care Provider Active Team Status: Inactive Member Role Status Dates Dr. Nikki Monroy MD Attending Provider Active No Primary Care Physician Primary Care Provider, Refer ring Provider Active Team Status: Inactive Member Role Status Dates Dr. Yolis Gibson DO Attending Provider Activ e No Primary Care Physician Primary Care Provider, Refer ring Provider Active Team Status: Inactive Member Role Status Dates Dr. Yolis Gibson DO Attending Provider Activ e Dr. Nikki Monroy MD Referring Provider Active No Primary Care Physician Primary Care Provider Active Team Status: Inactive Member Role Status Dates No Primary Care Physician Primary Care Provider, Refer ring Provider Active Dr. Yolis Gibson DO Attending Provider Activ e Team Status: Active Member Role Status Dates No Primary Care Physician Primary Care Provider Active Dr. Yolis Gibson DO Other Provider Active Dr. Nikki Monroy MD Admit Provid er, Attending Provider, Other Provider Active Team Status: Inactive Member Role Status Dates No Primary Care Physician Primary Care Provider Active Dr. Yolis Gibson DO Attending Provider Activ e Team Status: Active Member Role Status Dates No Primary Care Physician Primary Care Provider Active Dr. Yolis Gibson DO Attending Provider, Refe rring Provider Active Team Status: Inactive Member Role Status Dates No Primary Care Physician Primary Care Provider Active Dr. Yolis Gibson DO Other Provider Active Dr. Nikki Monroy MD Admit Provider, Attending Provider Active Team Status: Inactive Member Role Status Dates No Primary Care Physician Primary Care Provider Active Dr. Yolis Gibson DO Attending Provider, Refe rring Provider Active Team Status: Inactive Member Role Status Dates No Primary Care Physician Primary Care Provider, Refer ring Provider Active Suzanne Chahal AN/SSN 2 4 OPERATOR, AN/SSN 2 4 OPERATOR-C Attending Provider Active Team Status: Inactive Member Role Status Dates No Primary Care Physician Primary Care Provider, Refer ring Provider Active Susie Miramontes AN/SSN 2 4 OPERATOR, AN/SSN 2 4 OPERATOR-C Attending Provider Active Team Status: Inactive Member Role Status Dates No Primary Care Physician Primary Care Provider Active EDWIN ROQUE Attending Provider Active Finished 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 Nikki Monroy MD Attending Provider Active Team Status: Inactive Member Role Status Dates No Primary Care Physician Primary Care Provider Active Dr. Nikki Monroy MD Attending Provider, Referr ing Provider Active Team Status: Inactive Member Role Status Dates No Primary Care Physician Referring Provider Active Dr. Yolis Gibson DO Attending Provider Activ e TYLER MICHELE Primary Care Provider Active Team Status: Active Member Role Status Dates TYLER MICHELE Primary Care Provide r, Attending Provider, Referring Provider Active Team Status: Inactive Member Role Status Dates Dr. Yolis Gibson , DO Attending Provider Activ e No Primary Care Physician Primary Care Provider Active Team Status: Inactive Member Role Status Dates TYLER MICHELE Primary Care Provide r, Attending Provider, Referring Provider Active Team Status: Inactive Member Role Status Dates No Primary Care Physician Primary Care Provider Active Start: February 26, 2024 End: February 26, 2024 No Primary Care Physician Referring Provider Active Start: February 26, 2024 End: February 26, 2024 Susie Miramontes AN/SSN 2 4 OPERATOR, AN/SSN 2 4 OPERATOR-C Attending Provider Active Start: February 26, 2024 End: February 26, 2024 Team Status: Inactive Member Role Status Dates No Primary Care Physician Primary Care Provider Active Start: February 26, 2024 End: February 26, 2024 Susie Miramontes AN/SSN 2 4 OPERATOR, AN/SSN 2 4 OPERATOR-C Attending Provider Active Start: February 26, 2024 End: February 26, 2024 Susie Miramontes AN/SSN 2 4 OPERATOR, AN/SSN 2 4 OPERATOR-C Referring Provider Active Start: February 26, 2024 End: February 26, 2024 Team Status: Inactive Member Role Status Dates No Primary Care Physician Primary Care Provider Active Start: March 05, 2024 End: March 05, 2024 Susie Miramontes AN/SSN 2 4 OPERATOR, AN/SSN 2 4 OPERATOR-C Attending Provider Active Start: March 05, 2024 End: March 05, 2024 Susie Miramontes AN/SSN 2 4 OPERATOR, AN/SSN 2 4 OPERATOR-C Referring Provider Active Start: March 05, 2024 End: March 05, 2024 Team Status: Inactive Member Role Status Dates No Primary Care Physician Primary Care Provider Active Start: March 31, 2024 End: March 31, 2024 No Primary Care Physician Referring Provider Active Start: March 31, 2024 End: March 31, 2024 Dr. Demetris Houston MD Attending Provider Active Sta rt: March 31, 2024 End: March 31, 2024 Team Status: Inactive Member Role Status Dates No Primary Care Physician Primary Care Provider Active Start: March 31, 2024 End: March 31, 2024 Dr. Demetris Houston MD Attending Provider Active Sta rt: March 31, 2024 End: March 31, 2024 Dr. Demetris Houston MD Referring Provider Active Sta rt: March 31, 2024 End: March 31, 2024 Team Status: Inactive Member Role Status Dates No Primary Care Physician Primary Care Provider Active Start: April 30, 2024 End: April 30, 2024 No Primary Care Physician Referring Provider Active Start: April 30, 2024 End: April 30, 2024 Susie Miramontes AN/SSN 2 4 OPERATOR, AN/SSN 2 4 OPERATOR-C Attending Provider Active Start: April 30, 2024 End: April 30, 2024 Team Status: Inactive Member Role Status Dates No Primary Care Physician Primary Care Provider Active Start: April 30, 2024 End: April 30, 2024 Susie Miramontes AN/SSN 2 4 OPERATOR, AN/SSN 2 4 OPERATOR-C Attending Provider Active Start: April 30, 2024 End: April 30, 2024 Susie Miramontes AN/SSN 2 4 OPERATOR, AN/SSN 2 4 OPERATOR-C Referring Provider Active Start: April 30, 2024 End: April 30, 2024 Finished Cigar Maker Relationship Specialty Start Date End Date Sage Dimas PA-C [address] [place] [address] Dermatology 07/22/24 Team Status: Inactive Member Role Status Dates No Primary Care Physician Primary Care Provider Active Start: May 22, 2024 End: May 22, 2024 No Primary Care Physician Referring Provider Active Start: May 22, 2024 End: May 22, 2024 ADENIKE Monreal Attending Provider Active Sta rt: May 22, 2024 End: May 22, 2024 Team Status: Inactive Member Role Status Dates No Primary Care Physician Primary Care Provider Active Start: June 19, 2024 End: June 19, 2024 No Primary Care Physician Referring Provider Active Start: June 19, 2024 End: June 19, 2024 ELIJAH Ma Attending Provider Active Start: June 19, 2024 End: June 19, 2024 Team Status: Active Member Role Status Dates No Primary Care Physician Primary Care Provider Active Start: July 21, 2024 Dr. Nikki Monroy MD Attending Provider Active Start: July 21, 2024 Dr. Nikki Monroy MD Referring Provider Active Start: July 21, 2024 Team Status: Active Member Role Status Dates No Primary Care Physician Primary Care Provider Active Start: July 23, 2024 Dr. Nikki Monroy MD Attending Provider Active Start: July 23, 2024 Dr. Nikki Monroy MD Referring Provider Active Start: July 23, 2024 Team Status: Inactive Member Role Status Dates No Primary Care Physician Primary Care Provider Active Start: July 24, 2024 End: July 24, 2024 No Primary Care Physician Referring Provider Active Start: July 24, 2024 End: July 24, 2024 Dr. Nikki Monroy MD Attending Provider Active Start: July 24, 2024 End: July 24, 2024 Team Status: Inactive Member Role Status Dates No Primary Care Physician Primary Care Provider Active Start: July 21, 2024 End: July 21, 2024 Dr. Nikki Monroy MD Attending Provider Active Start: July 21, 2024 End: July 21, 2024 Dr. Nikki Monroy MD Referring Provider Active Start: July 21, 2024 End: July 21, 2024 Finished Cigar Maker Relationship Specialty Start Date End Date Sage Dimas PA-C [address] [place] [address] Dermatology 07/22/24 Team Status: Inactive Member Role Status Dates No Primary Care Physician Primary Care Provider Active Start: July 23, 2024 End: July 23, 2024 Dr. Nikki Monroy MD Attending Provider Active Start: July 23, 2024 End: July 23, 2024 Dr. Nikki Monroy MD Referring Provider Active Start: July 23, 2024 End: July 23, 2024 Finished Cigar Maker Relationship Specialty Start Date End Date Sage DimasBRONWYN [address] [facility] [address] [place] [address] Dermatology 07/22/24 Finished Cigar Maker Relationship Specialty Start Date End Date Sage DimasBRONWYN [address] [facility] [address] [place] [address] Dermatology 07/22/24 Finished Cigar Maker Relationship Specialty Start Date End Date Sage DimasBRONWYN [address] [facility] [address] [place] [address] Dermatology 07/22/24 Team Status: Active Member Role/Relationship Status Dates No Primary Care Physician Primary Care Provider Active Team Status: Inactive Member Role/Relationship Status Dates No Primary Care Physician Primary Care Provider Active Start: April 30, 2024 End: April 30, 2024 No Primary Care Physician Referring Provider Active Start: April 30, 2024 End: April 30, 2024 Susie Miramontes AN/SSN 2 4 OPERATOR, AN/SSN 2 4 OPERATOR-C Attending Provider Active Start: April 30, 2024 End: April 30, 2024 Team Status: Inactive Member Role/Relationship Status Dates No Primary Care Physician Primary Care Provider Active Start: April 30, 2024 End: April 30, 2024 Susie Miramontes AN/SSN 2 4 OPERATOR, AN/SSN 2 4 OPERATOR-C Attending Provider Active Start: April 30, 2024 End: April 30, 2024 Susie Miramontes AN/SSN 2 4 OPERATOR, AN/SSN 2 4 OPERATOR-C Referring Provider Active Start: April 30, 2024 End: April 30, 2024 Team Status: Inactive Member Role/Relationship Status Dates No Primary Care Physician Primary Care Provider Active Start: May 22, 2024 End: May 22, 2024 No Primary Care Physician Referring Provider Active Start: May 22, 2024 End: May 22, 2024 ADENIKE Monreal Attending Provider Active Sta rt: May 22, 2024 End: May 22, 2024 Team Status: Inactive Member Role/Relationship Status Dates No Primary Care Physician Primary Care Provider Active Start: June 19, 2024 End: June 19, 2024 No Primary Care Physician Referring Provider Active Start: June 19, 2024 End: June 19, 2024 ELIJAH Ma Attending Provider Active Start: June 19, 2024 End: June 19, 2024 Team Status: Inactive Member Role/Relationship Status Dates No Primary Care Physician Primary Care Provider Active Start: July 21, 2024 End: July 21, 2024 Dr. Nikki Monroy MD Attending Provider Active Start: July 21, 2024 End: July 21, 2024 Dr. Nikki Monroy MD Referring Provider Active Start: July 21, 2024 End: July 21, 2024 Team Status: Inactive Member Role/Relationship Status Dates No Primary Care Physician Primary Care Provider Active Start: July 23, 2024 End: July 23, 2024 Dr. Nikki Monroy MD Attending Provider Active Start: July 23, 2024 End: July 23, 2024 Dr. Nikki Monroy MD Referring Provider Active Start: July 23, 2024 End: July 23, 2024 Team Status: Inactive Member Role/Relationship Status Dates No Primary Care Physician Primary Care Provider Active Start: July 24, 2024 End: July 24, 2024 No Primary Care Physician Referring Provider Active Start: July 24, 2024 End: July 24, 2024 Dr. Nikki Monroy MD Attending Provider Active Start: July 24, 2024 End: July 24, 2024 Team Status: Inactive Member Role/Relationship Status Dates No Primary Care Physician Primary Care Provider Active Start: August 22, 2024 End: August 22, 2024 No Primary Care Physician Referring Provider Active Start: August 22, 2024 End: August 22, 2024 ADENIKE Monreal Attending Provider Active Sta rt: August 22, 2024 End: August 22, 2024 Team Status: Inactive Member Role/Relationship Status Dates No Primary Care Physician Primary Care Provider Active Start: June 19, 2024 End: June 19, 2024 No Primary Care Physician Referring Provider Active Start: June 19, 2024 End: June 19, 2024 ELIJAH Ma Attending Provider Active Start: June 19, 2024 End: June 19, 2024 Team Status: Inactive Member Role/Relationship Status Dates No Primary Care Physician Primary Care Provider Active Start: July 21, 2024 End: July 21, 2024 Dr. Nikki Monroy MD Attending Provider Active Start: July 21, 2024 End: July 21, 2024 Dr. Nikki Monroy MD Referring Provider Active Start: July 21, 2024 End: July 21, 2024 Team Status: Inactive Member Role/Relationship Status Dates No Primary Care Physician Primary Care Provider Active Start: July 23, 2024 End: July 23, 2024 Dr. Nikki Monroy MD Attending Provider Active Start: July 23, 2024 End: July 23, 2024 Dr. Nikki Monroy MD Referring Provider Active Start: July 23, 2024 End: July 23, 2024 Team Status: Inactive Member Role/Relationship Status Dates No Primary Care Physician Primary Care Provider Active Start: July 24, 2024 End: July 24, 2024 No Primary Care Physician Referring Provider Active Start: July 24, 2024 End: July 24, 2024 Dr. Nikki Monroy MD Attending Provider Active Start: July 24, 2024 End: July 24, 2024 Team Status: Inactive Member Role/Relationship Status Dates No Primary Care Physician Primary Care Provider Active Start: August 22, 2024 End: August 22, 2024 No Primary Care Physician Referring Provider Active Start: August 22, 2024 End: August 22, 2024 ADENIKE Monreal Attending Provider Active Sta rt: August 22, 2024 End: August 22, 2024 Team Status: Inactive Member Role/Relationship Status Dates No Primary Care Physician Primary Care Provider Active Start: September 25, 2024 End: September 25, 2024 No Primary Care Physician Referring Provider Active Start: September 25, 2024 End: September 25, 2024 Dr. Demetris Houston MD Attending Provider Active Sta rt: September 25, 2024 End: September 25, 2024 Goals (unrecognized section and content) Goals may be documented in a n alternate sectionGoals may be documented in an alternate sectionGoals may be documented in an alternate sectionGoals may be documented in an alternate sectionGoals may be documented in an alternate sectionGoals may be documented in an alternate sectionGoals may be documented in an alternate sectionGoals may be documented in an alternate sectionGoals may be documented in an alternate sectionGoals may be documented in an alternate sectionGoals may be documented in an alternate sectionGoals may be documented in an alternate sectionGoals may be documented in an alternate section Source Comments (unrecognize d section and content) In the event this informatio n is protected by the Federal Confidentiality of Alcohol and Drug Abuse Patient Records regulations: The Federal rules restrict any use of the information to criminally investigate or prosecute any alcohol or drug abuse patient.[facility] the event this information is protected by the Federal Confidentiality of Alcohol and Drug Abuse Patient Records regulations: The Federal rules restrict any use of the information to criminally investigate or prosecute any alcohol or drug abuse patient.[facility] the event this information is protected by the Federal Confidentiality of Alcohol and Drug Abuse Patient Records regulations: The Federal rules restrict any use of the information to criminally investigate or prosecute any alcohol or drug abuse patient.[facility] the event this information is protected by the Federal Confidentiality of Alcohol and Drug Abuse Patient Records regulations: The Federal rules restrict any use of the information to criminally investigate or prosecute any alcohol or drug abuse patient.[facility] the event this information is protected by the Federal Confidentiality of Alcohol and Drug Abuse Patient Records regulations: The Federal rules restrict any use of the information to criminally investigate or prosecute any alcohol or drug abuse patient.[facility] the event this information is protected by the Federal Confidentiality of Alcohol and Drug Abuse Patient Records regulations: The Federal rules restrict any use of the information to criminally investigate or prosecute any alcohol or drug abuse patient.[facility] FOR RECORDS PERTAINING TO PATIENTS WHO ARE OR HAVE BEEN ENROLLED IN A CHEMICAL DEPENDENCY/SUBSTANCEABUSE PROGRAM, SOME INFORMATION MAY BE OMITTED. This clinical summary was aggregated from multiple sources. Caution should be exercised in using it in the provision of clinical care. This summary normalizes information from multiple sources, and as a consequence, information in this document may materially change the coding, format and clinical context of patient data. In addition, data may be omitted in some cases. CLINICAL DECISIONS SHOULD BE BASED ON THE PRIMARY CLINICAL RECORDS. [facility] [employer] [facility]. provides no warranty or guarantee of the accuracy or completeness of information in this document.
== END | disposition home or self-care (01) ==
PROVIDERS: Visit Provider Student in an Organized Health Care Education/Training Program
DX: O20.0 Threatened abortion (principal)
CPT/HCPCS: 36415; 84702

== ENCOUNTER → 2025-02-02 | Outpatient (CLI) | payer BC, SELFPAY ==
[2025-02-02 13:11] LABS: hCG Titer Quant., Serum 198 mIU/mL (<9 non-preg)
== END | disposition home or self-care (01) ==
PROVIDERS: Visit Provider Student in an Organized Health Care Education/Training Program
DX: O03.9 Complete or unspecified spontaneous abortion without complication (principal)
CPT/HCPCS: 36415; 84702

== ENCOUNTER → 2025-02-09 | Outpatient (CLI) | payer BC, SELFPAY ==
[2025-02-09 17:32] LABS: hCG Titer Quant., Serum 16 mIU/mL (<9 non-preg)
== END | disposition home or self-care (01) ==
PROVIDERS: Student in an Organized Health Care Education/Training Program; Visit Provider Obstetrics & Gynecology
DX: O03.9 Complete or unspecified spontaneous abortion without complication (principal)
CPT/HCPCS: 36415; 84702